=== PATIENT | male | born 1985 | race African-American/Black ===

== ENCOUNTER 2018-05-13 20:12 | Inpatient (IN) ==
--- NOTE | 2018-05-13 20:55 | EKG Report ---
Test Performed on : 05/13/2018 8:37:35 PM Test Reason : SOB Blood Pressure : / mmHG Vent. Rate : 118 BPM Atrial Rate : 118 BPM P-R Int : 158 ms QRS Dur : 086 ms QT Int : 322 ms P-R-T Axes : 063 032 097 degrees QTc Int : 451 ms Sinus tachycardia. Left atrial enlargement Nonspecific T wave abnormality Abnormal ECG When compared with ECG of 12-APR-2018 19:36, (Unconfirmed) No significant change was found Unconfirmed Result
[2018-05-13 21:06] LABS: INR 1.07; PROTIME 14.5 Seconds (11.0-16.0)
[2018-05-13 21:08] LABS: ALBUMIN 3.4 g/dL (3.5-5.0); CALCIUM 8.7 mg/dL (8.8-10.2); CREATININE 1.5 mg/dL (0.7-1.2); POTASSIUM 3.6 mmol/L (3.5-5.1); TOTAL BILIRUBIN 0.8 mg/dL (0.20-1.00); TOTAL PROTEIN 6.9 g/dL (6.3-8.3)
[2018-05-13] MEDS ORDERED: VANCOMYCIN 1 GM/NS 1 GM/250 ML IVPB IV ONE (21:23)
[2018-05-13] MEDS ORDERED: ROCEPHIN 1 GM in NS 50 ML IV ONE (21:23)
[2018-05-13 21:24] LABS: BASO# 0.07 X1000 (0.0-0.2); BASO% 0.3 % (0.0-0.8); EOS# 0.26 X1000 (0.0-0.7); HEMATOCRIT 41.5 % (42.0-52.0); HEMOGLOBIN 13.3 g/dL (14.0-18.0); IMM GRAN% 0.4 % (0.0-0.5); LYMPH# 1.74 X1000 (1.2-3.4); LYMPH% 6.5 % (20.5-51.1); MCH 25.2 PG (27-31); MCV 78.6 FL (81-99); MONO# 0.91 X1000 (0.11-0.59); MONO% 3.4 % (1.7-9.3); MPV 10.1 FL (7.4-10.4); NEUT# 23.77 X1000 (1.4-6.5); NEUT% 88.4 % (42.2-75.2); PLT 272 X1000 (130-400); RBC 5.28 XMIL (4.7-6.1); RDW 15.2 % (11.5-14.5); WBC 26.85 X1000 (4.8-10.8)
--- NOTE | 2018-05-13 21:26 | Diag Imaging Result Doc PS360 ---
EXAM: CHEST-2 VIEWS HISTORY: cough with hemoptasis TECHNIQUE: Chest two views COMPARISON: 04/12/2018 FINDINGS: There are dense bilateral infiltrates in the mid and lower lungs. Heart is mildly enlarged. No pleural effusions identified. IMPRESSION: Cardiomegaly with dense mid and lower lung infiltrates. Electronically signed by Deuce Garcia 05/13/2018 9:24 PM
--- NOTE | 2018-05-13 21:31 | PROVIDER DOCUMENTATION ---
HPI-Respiratory General - General Chief Complaint: Shortness of Breath Stated Complaint: CHEST PAIN Time Seen by Provider: 05/13/18 20:17 Source: patient Allergies/Adverse Reactions: Patient Allergies Allergy/AdvReac Type Severity Reaction Status Date / Time nitroglycerin AdvReac Unknown Verified 04/12/18 18:38 Home Medications: Home Medication List Medication Instructions Recorded Confirmed Last Taken Type Losartan [Cozaar] 100 mg PO DAILY 12/21/17 04/14/18 Unknown History Amlodipine Besylate [Norvasc] 10 mg PO DAILY #90 tab 01/07/18 04/14/18 Unknown Rx Hydralazine [Apresoline] 25 mg PO 0900,1500,2100 #90 tab 03/18/18 04/12/18 1 Day Ago Rx ~04/11/18 Clonidine [Catapres] 0.2 mg PO BID #60 tab 04/15/18 Unknown Rx Furosemide [Lasix] 40 mg PO DAILY #30 tab 04/15/18 Unknown Rx Omeprazole [Prilosec] 40 mg PO DAILY #30 capsule. 04/15/18 Unknown Rx - History of Present Illness-Resp Nature of Presenting Problem: 33 yo male pt who presents to the ED with complaint of SOB, with cough and hemoptysis. He admits to using cocain 5 hours ago via inhalation, and his symptoms started two hours later. He reports that he does use cocaine on a regular basis but denies using other illicit drugs. He reports that he has HTN, but denies any other medical history. He reports that he does have CP with inspiration and feels SOB. He reports that he was treated a few months back for swollen lower extremities with calf pain. When ask he reports that he is not a IVDA (states I hate needles), and gets HIV testing every 6 months and they have always been negative. Review of Systems - Adult - REVIEW OF SYSTEMS - ADULT Constitutional: reports: see HPI Eyes: reports: redness Ears, Nose, Mouth & Throat: reports: no symptoms reported Cardiovascular: reports: see HPI Respiratory: reports: see HPI, cough, dyspnea on exertion, hemoptysis, pleurisy , shortness of breath Gastrointestinal: reports: no symptoms reported Genitourinary: reports: no symptoms reported Musculoskeletal: reports: no symptoms reported Integumentary: reports: no symptoms reported Neurological: reports: no symptoms reported Psychiatric: reports: no symptoms reported Endocrine: reports: no symptoms reported Hematologic/Lymphatic: reports: no symptoms reported Allergic/Immunologic: reports: no symptoms reported All Other Systems: Reviewed and Negative Past History - Adult - PAST MEDICAL HISTORY-ADULT Review of Records: reports: Old Records Reviewed, Nursing Assessment Review, Medications Reviewed, Social history reviewed & non-contributory. Major Childhood Illnesses: reports: denies history Cardiovascular: reports: HTN Respiratory: reports: denies history Gastrointestinal: reports: denies history Obstetrical/Gynecological: reports: denies history Genitourinary: reports: denies history Musculoskeletal: reports: denies history Neurological: reports: denies history Psychiatric: reports: denies history Endocrine/Immune: reports: denies history Other Conditions: reports: denies history - PRIOR SURGERIES/PROCEDURES Surgical/Procedure History: reports: none - IMMUNIZATION STATUS Childhood Immunizations: See Nurse Assessment Flu Vaccine: See Nurse Assessment - FAMILY HISTORY Family History: reviewed, not pertinent - SOCIAL HISTORY Substance Use: cocaine Alcohol Use Frequency: occasionally Physical Exam-General - PHYSICAL EXAM-ADULT Initial Vital Signs Reviewed: Yes - CONSTITUTIONAL General Appearance: moderate distress, obese - EYES Eyes: PERRL/EOMI, sclera injected - HEAD, EARS, NOSE, MOUTH & THROAT HENMT: normocephalic/atraumatic, moist mucous membranes, normal ENT inspection, pharynx normal. negative: angioedema - NECK Neck: non-tender, full range of motion, supple - RESPIRATORY Respiratory: chest non-tender, respiratory distress, decreased breath sounds, accessory muscle use, crackles, increased rate - CARDIOVASCULAR Cardiovascular: no murmur, JVD, tachycardia - GASTROINTESTINAL (ABDOMEN) Abdominal Exam: normal bowel sounds, non tender, soft, no organomegaly. negative: tenderness - LYMPHATIC Lymphatic: negative: no adenopathy, cervical node tenderness - MUSCULOSKELETAL Back Exam: normal inspection, no vertebral tenderness Extremity: normal range of motion, non-tender, normal gait Peripheral Pulses: radial (R): 3+, radial (L): 3+ - NEUROLOGIC Neurologic: grossly normal, no motor/sensory deficits - PSYCHIATRIC Psych/Mental Status: oriented x 3, anxious Progress - PLAN OF CARE/RESULTS Progress/Plan/Lab Results: Vital Signs - 8 hr 05/13/18 20:14 05/13/18 23:30 Temperature 100 F H 99.7 F H Pulse Rate 119 H 113 H Respiratory Rate 24 22 Blood Pressure 115/81 221/135 O2 Sat by Pulse Oximetry 92 L 100 Laboratory Results - last 24 hr 05/13/18 05/13/18 05/13/18 20:35 20:35 20:35 WBC 26.85 H RBC 5.28 Hgb 13.3 L Hct 41.5 L MCV 78.6 L MCH 25.2 L MCHC 32.0 L RDW Std Deviation 15.2 H Plt Count 272 MPV 10.1 Immature Gran % (Auto) 0.4 Neut % (Auto) 88.4 H Lymph % (Auto) 6.5 L Schuyler % (Auto) 3.4 Eos % (Auto) 1.0 Baso % (Auto) 0.3 Immature Gran # (Auto) 0.10 H Neut # (Auto) 23.77 H Lymph # (Auto) 1.74 Schuyler # (Auto) 0.91 H Eos # (Auto) 0.26 Baso # (Auto) 0.07 Segmented Neutrophils 89 H Band Neutrophils 1 Lymphocytes 8 L Monocytes 1 Eosinophils 1 Hypochromia 2+ PT INR D-Dimer, Quantitative 1.88 H Sodium Potassium Chloride Carbon Dioxide Anion Gap BUN Creatinine Estimated GFR/1.73 m2 BUN/Creatinine Ratio Glucose Calculated Osmolality Calcium Total Bilirubin AST ALT Alkaline Phosphatase Troponin T < 0.010 Mgp-T-Vsfgldfyhgf Pept Total Protein Albumin Globulin Albumin/Globulin Ratio Plasma Lactate 05/13/18 05/13/18 05/13/18 20:35 20:35 20:35 WBC RBC Hgb Hct MCV MCH MCHC RDW Std Deviation Plt Count MPV Immature Gran % (Auto) Neut % (Auto) Lymph % (Auto) [place] % (Auto) Eos % (Auto) Baso % (Auto) Immature Gran # (Auto) Neut # (Auto) Lymph # (Auto) Schuyler # (Auto) Eos # (Auto) Baso # (Auto) Segmented Neutrophils Band Neutrophils Lymphocytes Monocytes Eosinophils Hypochromia PT 14.5 INR 1.07 D-Dimer, Quantitative Sodium 143 Potassium 3.6 Chloride 104 Carbon Dioxide 22 L Anion Gap 17 BUN 16 Creatinine 1.5 H Estimated GFR/1.73 m2 54 BUN/Creatinine Ratio 11 Glucose 99 Calculated Osmolality 286 Calcium 8.7 L Total Bilirubin 0.80 AST 28 ALT 23 Alkaline Phosphatase 92 Troponin T Ucr-T-Pxbcinscqtp Pept 6862 H Total Protein 6.9 Albumin 3.4 L Globulin 4.0 Albumin/Globulin Ratio 1.0 Plasma Lactate 05/13/18 22:00 WBC RBC Hgb Hct MCV MCH MCHC RDW Std Deviation Plt Count MPV Immature Gran % (Auto) Neut % (Auto) Lymph % (Auto) Schu[place] % (Auto) Eos % (Auto) Baso % (Auto) Immature Gran # (Auto) Neut # (Auto) Lymph # (Auto) Schuyler # (Auto) Eos # (Auto) Baso # (Auto) Segmented Neutrophils Band Neutrophils Lymphocytes Monocytes Eosinophils Hypochromia PT INR D-Dimer, Quantitative Sodium Potassium Chloride Carbon Dioxide Anion Gap BUN Creatinine Estimated GFR/1.73 m2 BUN/Creatinine Ratio Glucose Calculated Osmolality Calcium Total Bilirubin AST ALT Alkaline Phosphatase Troponin T Jhg-T-Oegjdvryflv Pept Total Protein Albumin Globulin Albumin/Globulin Ratio Plasma Lactate 1.7 Orders Category Date Time Status Admit - [facility] Routine AdmDCTranf 05/13/18 23:18 Active Activity - Strict Bedrest ORDERED Care 05/13/18 23:17 Active Isolation Precautions Setup NOW Care 05/13/18 23:26 Active Neurological Check Q2H Care 05/13/18 23:17 Active Nursing- MD Consult Request ROUTINE Care 05/13/18 21:27 Active Nursing- Obtain EKG once Care 05/13/18 20:18 Active Resuscitation Status Routine Care 05/13/18 23:17 Ordered Saline Loc DIRECTED Care 05/13/18 23:17 Completed Use Oxygen.Protocol ORDERED Care 05/13/18 21:27 Active Vital Signs Order RTQ1H Care 05/13/18 23:21 Active Z-Document. for Tele Applied ORDERED Care 05/13/18 23:22 Active Physician/Provider Consults Routine Cons 05/13/18 21:26 Ordered Physician/Provider Consults Stat Cons 05/13/18 23:23 Ordered NPO Diet 05/13/18 23:22 Active CHEST-2 VIEWS [RAD] Stat Exams 05/13/18 20:18 Completed BLOOD CULTURE [BLDCUL] Stat Lab 05/13/18 22:12 Ordered BNP [PRO B-NATRIURETIC PEPTIDE] Stat Lab 05/13/18 20:35 Completed CBC WITH DIFF [HEME] Stat Lab 05/13/18 20:35 Completed COMPREHENSIVE METABOLIC PANEL [CHEM] Stat Lab 05/13/18 20:35 Completed D-DIMER [COAG] Stat Lab 05/13/18 20:35 Completed HIV AB SCREEN [HH] Stat Lab 05/13/18 22:00 Received LACTATE, PLASMA [CHEM] Stat Lab 05/13/18 22:00 Completed PT [PROTIME WITH INR] [COAG] Stat Lab 05/13/18 20:35 Completed TROPONIN T Stat Lab 05/13/18 20:35 Completed Albuterol 2.5MG/Ipratrop 0.5MG [Duoneb (A & A)] Med 05/13/18 23:30 Active 3 ml INH RTQ4H CefTRIAXONE [Rocephin] 1 gm Med 05/13/18 21:23 Discontinued 0.9% Sodium Chloride Inj [Ns] 50 ml IV NOW Ondansetron [Zofran] Med 05/13/18 23:17 Active 4 mg IV Q4H PRN PRN Vancomycin 1 gm/Ns Med 05/13/18 21:23 Discontinued 1 gm in 250 ml IV NOW Aerosol Treatments Routine Oth 05/13/18 23:22 Active Aerosol Treatments Stat Oth 05/13/18 23:22 Active Oxygen Device Routine Oth 05/13/18 23:22 Active Telemetry [OM.EQ] Routine Oth 05/13/18 23:17 Active EKG [EKG] Stat Ther 05/13/18 20:18 Draft Transfer/Admit Order [TRANSFER] Routine Transfer 05/13/18 23:[address] Quinones the managed care coordinator who agreed to consult the patient and recommended that he be admitted to the hospitalist at in ICU or the stepdown unit. I consulted Dr. Dickey who agreed to admit the patient, he advised that he would evaluate to see if there is any open beds, otherwise the patient would be a ED hold. Result Diagrams: 05/13/18 20:35 05/13/18 20:35 - EKG 1 Time of EKG reading by physician:: 20:38 EKG Read and Signed by:: Michoacano Yanez EKG Interpretation (*Must complete 3 of following elements*): Abnormal Rate: 118 Rhythm: Sinus tach [place]: normal QRS: normal DE Interval: normal ST Wave: non-specific ST changes Prior EKG Comparison: no prior EKG Comments: LAE Departure - Departure Date of Disposition Decision: 05/13/18 Time of Disposition Decision: 21:42 DIAGNOSIS: Pneumonia, Cocaine abuse, Hemoptysis, Elevated d-dimer, Elevated brain natriuretic peptide (BNP) level, Leukocytosis, Uncontrolled hypertension Disposition: ADMITTED INPATIENT 09 Certified Medical Emergency: Emergent Condition: Critical - Critical Care Note This patient required my direct & personal management of CC.: No Attestation - Physician/ NAYE Attestation Patient care was provided by Advanced Practice Provider:: Yes Advanced Practice Provider:: Kendall Lowery Advanced Practice Provider documentation review:: The Mid-level provider documentation, treatment plan and medical decision making was reviewed by the physician who agrees with all treatment and medical decision making by the MLP. The physician spent face to face time with patient:: Yes Advanced Practice Provider documentation review:: Supervising physician onsite and consulted in the evaluation and care of this patient. The physician did have a face to face encounter with the patient.
[2018-05-13 21:47] LABS: BANDS 1 % (0-1); EOS 1 % (1-10); HYPOCHROM 2+; LYMPHS 8 % (21-51); MONO 1 % (1-9); SEGS 89 % (42-75)
[2018-05-13] MEDS ORDERED: ZOFRAN IV PRN (23:17)
[2018-05-13] MEDS ORDERED: DUONEB (A & A) INH SCH (23:30)
[2018-05-14] MEDS ORDERED: LABETALOL IV ONE (00:27)
[2018-05-14 03:49] LABS: BASO# 0.05 X1000 (0.0-0.2); BASO% 0.2 % (0.0-0.8); EOS# 0.02 X1000 (0.0-0.7); EOS% 0.1 % (0.0-10.0); HEMATOCRIT 39.4 % (42.0-52.0); HEMOGLOBIN 12.7 g/dL (14.0-18.0); IMM GRAN# 0.19 X1000 (0.0-0.04); IMM GRAN% 0.8 % (0.0-0.5); LYMPH# 1.38 X1000 (1.2-3.4); LYMPH% 5.5 % (20.5-51.1); MCH 25.2 PG (27-31); MCHC 32.2 g/dL (33-37); MCV 78.3 FL (81-99); MONO% 2.8 % (1.7-9.3); NEUT# 22.93 X1000 (1.4-6.5); NEUT% 90.6 % (42.2-75.2); PLT 270 X1000 (130-400); RBC 5.03 XMIL (4.7-6.1); WBC 25.27 X1000 (4.8-10.8)
[2018-05-14 03:58] LABS: AGAP 17; BUN 14 mg/dL (8-22); CALCIUM 8.8 mg/dL (8.8-10.2); CHLORIDE 101 mmol/L (98-107); COSMO 283; CREATININE 1.5 mg/dL (0.7-1.2); ESTIMATED GFR > 60; GLUCOSE 146 mg/dL (70-104); MAGNESIUM 1.7 mg/dL (1.5-2.7); POTASSIUM 3.7 mmol/L (3.5-5.1); SODIUM 140 mmol/L (136-145); TCO2 22 mmol/L (25-35)
[2018-05-14] MEDS ORDERED: DUONEB (A & A) INH PRN (04:06)
[2018-05-14 04:10] LABS: BANDS 4 % (0-1); LYMPHS 4 % (21-51); MONO 2 % (1-9); SEGS 90 % (42-75)
[2018-05-14 04:11] LABS: LARGE PLATELETS 1+
[2018-05-14] MEDS ORDERED: VANCOMYCIN IV PER PHARMACY MISC SCH (04:15)
[2018-05-14] MEDS ORDERED: LASIX IV SCH (04:15)
[2018-05-14] MEDS ORDERED: LASIX IV ONE (04:18)
[2018-05-14] MEDS ORDERED: ZOFRAN IV PRN (04:46)
[2018-05-14] MEDS: MAXIPIME 1 GM in NS 50 ML IV SCH ×2 (04:46→15:33)
[2018-05-14] MEDS: TYLENOL PO PRN ×2 (04:58→20:31)
[2018-05-14] MEDS: NORVASC PO SCH (04:59)
[2018-05-14] MEDS: APRESOLINE PO SCH ×3 (04:59→20:05)
[2018-05-14] MEDS: CATAPRES PO SCH ×2 (04:59→20:05)
[2018-05-14] MEDS ORDERED: VANCOMYCIN 1 GM/NS 1 GM/250 ML IVPB IV ONE (05:00)
[2018-05-14] MEDS: PRILOSEC PO SCH ×2 (05:00→06:04)
--- NOTE | 2018-05-14 08:07 | Diag Imaging Result Doc PS360 ---
CT THORAX W/O CONTRAST - 05/14/2018 INDICATION: ACUNA. Hx cocaine use COMPARISON: Chest CT 12/20/2017. Chest x-rays from 05/13/2018 and 04/12/2018 FINDINGS: There is mild cardiomegaly. No pericardial effusion. No mass or adenopathy. Upper abdominal images are unremarkable. There are extensive groundglass interstitial infiltrates in the perihilar lungs bilaterally. No pneumothorax or pleural effusion. There is some intralobular septal thickening throughout the lungs consistent with interstitial edema. IMPRESSION: Cardiomyopathy. Interstitial pulmonary edema. This exam was performed using automated exposure control, adjustment of mA or kV according to patient size, and/or use of iterative reconstruction technique Electronically signed by Gianni Sherwood 05/14/2018 8:05 AM
[2018-05-14] MEDS: COZAAR PO SCH (08:18)
[2018-05-14] MEDS: HEPARIN SUBQ SCH ×2 (08:20→20:05)
[2018-05-14 08:30] LABS: URINE SOURCE CLEAN CATCH
[2018-05-14 08:35] LABS: BILIRUBIN URINE NEGATIVE (NEGATIVE); BLOOD URINE NEGATIVE (NEGATIVE); COLOR STRAW; GLUCOSE URINE NEGATIVE (NEGATIVE); KETONE URINE NEGATIVE (NEGATIVE); LEUKOCYTES URINE NEGATIVE (NEGATIVE); NITRITE URINE NEGATIVE (NEGATIVE); PROTEIN URINE NEGATIVE (NEGATIVE); TURBIDITY URINE CLEAR (CLEAR); UROBILINOGEN URINE NORMAL (NORMAL)
[2018-05-14 08:36] LABS: UR EPITHELIAL CELLS <10 /HPF (<10); URINE BACTERIA NEGATIVE /HPF; URINE RBC <10 /HPF (<10); URINE WBC <10 /HPF (<10)
--- NOTE | 2018-05-14 08:39 | HISTORY AND PHYSICAL ---
The patient does not have a primary care provider at this time. CHIEF COMPLAINT: Shortness of breath. HISTORY OF PRESENT ILLNESS: Mr. Sotomayor is a 33-year-old male with a past medical history most notable for hypertension, congestive heart failure, medical noncompliance as well as polysubstance abuse. He was just recently admitted and discharged from our facility on April 15, 2018. The patient states that over the last couple of weeks, he has had worsening shortness of breath. He has had worsening dyspnea with exertion as well as orthopnea. He has had increased bilateral lower extremity edema. The patient states that since being discharged, he has been trying to obtain a primary care physician but at this time does not have one. He states he has been taking all his medications as prescribed up until yesterday when he states that he only took 1 clonidine tablet and other than this did not take any of his high blood pressure medications. He is reporting a headache at this time though he denies any chest pain. He is reporting his shortness of breath as previously mentioned and has reported that he has had a productive cough with brown sputum as well as some blood. He states this started yesterday. He denies any abdominal pain, nausea, vomiting or diarrhea. He reports his last bowel movement was tonight. He denies any hematochezia or melena. He denies any dysuria. Upon evaluation in the ER at [facility], he did report shortness of breath, cough and hemoptysis. He did according to the ER physician note admit to using cocaine 5 hours via inhalation with his symptoms starting 2 hours after that. According to their ER note, he did report that he does use cocaine on a regular basis but denies any other illicit drug use. He denies any IV drug use. Upon my examination, the patient was sitting in the inpatient bed. Although he does not appear to be in any distress, he did appear to be slightly tachypneic and dyspneic upon examination. He did have JVD noted with a positive hepatojugular reflux. He does have diminished lung sounds bilaterally and does have some slight crackles in the left lung base. He also has slight expiratory wheeze noted. He does have 3+ pitting edema noted in bilateral lower extremities. White blood cell count was 26,850. ProBNP was 6,862. Chest x-ray performed in the ER at [facility] did show cardiomegaly with dense mid and lower lung infiltrates. Given these findings, the patient was transferred to [facility] for inpatient admission for treatment of CHF exacerbation and bilateral pneumonia. REVIEW OF SYSTEMS: A 14 point review of systems was conducted with the patient and all were negative except for pertinent positives as mentioned in the above HPI. PAST MEDICAL HISTORY: 1. Hypertension. 2. Chronic kidney disease. 3. Congestive heart failure. 4. History of medical noncompliance. SURGERIES: The patient has no known surgical history. SOCIAL HISTORY: The patient denies any alcohol or tobacco use although does report he uses marijuana. According to the ER physician note, the patient did admittedly report to inhaling cocaine and that he did admit to using cocaine on a regular basis although upon my questioning, the patient denies this. He has previously tested positive for cocaine in the past. FAMILY HISTORY: Positive for his mother just recently having a valve replacement at [facility]. She does have congestive heart failure and diabetes. His father secondary to an unknown medical complication. ALLERGIES: The patient has allergies to nitroglycerin. HOME MEDICATIONS: 1. Norvasc 10 mg p.o. daily. 2. Clonidine 0.2 mg p.o. b.i.d. 3. Lasix 40 mg p.o. daily. 4. Hydralazine 25 mg p.o. 3 times a day. 5. Cozaar 100 mg p.o. daily. 6. Omeprazole 40 mg p.o. daily. DIAGNOSTIC DATA/LABORATORY RESULTS: White blood cell count is 25,850, hemoglobin 13.3, hematocrit 41.5, platelet count is 272,000. PT 14.5, INR 1.05. D-dimer 1.88. Sodium 143, potassium 3.6, chloride 104, serum bicarb is 22. BUN 16, creatinine 1.5 with a GFR of 54. Glucose 99, calcium 8.7. Liver function tests within normal limits. CK is 184. Troponin is less than 0.01. ProBNP is 6,852. Plasma lactate is 1.7. EKG showed sinus tachycardia at a rate of 118 with a left atrial enlargement. Chest x-ray performed in the ER at [facility] show cardiomegaly with dense mid and lower lung infiltrates. PHYSICAL EXAMINATION: VITAL SIGNS: Temperature is 98.5 degrees, heart rate 94, respirations 24, blood pressure is 183/118. Oxygen saturation is 98% nasal cannula at 2 L. GENERAL: Mr. Sotomayor is a pleasant 33-year-old male who was resting in the inpatient bed who was in no acute distress. He was awake, alert and able to answer questions appropriately. HEENT: Head is atraumatic, normocephalic. Pupils are equal, round and reactive to light. Oral mucosa is slightly dry. Oropharynx is clear. NECK: Supple. Trachea midline. Patient does have JVD noted upon examination with a positive hepatojugular reflux. CARDIOVASCULAR: The patient has S1, S2. No murmurs, gallops, rubs appreciated. Regular rate and rhythm. PULMONARY: The patient has symmetrical chest expansion bilaterally but he does have a slight expiratory wheeze noted and does have diminished lung sounds in bilateral bases with some very slight crackles in the left lung base. ABDOMEN: Soft. Does not appear to be overly distended though the patient does have a protuberant abdomen noted. It was nontender upon palpation. Bowel sounds were present in all 4 quadrants and normoactive. EXTREMITIES: No cyanosis noted. The patient does have 2-3+ pitting edema noted in bilateral lower extremities from approximately the knee down. Pulse, motor and sensory are intact. Pedal pulses and radial pulses are 2+ bilaterally. INTEGUMENTARY: The patient's skin is pink, warm and dry. NEUROLOGICAL: The patient is alert and oriented x3. There does not appear to be any focal neurological deficits noted. ASSESSMENT AND PLAN: 1. CHF exacerbation. For this, we will go ahead and give the patient an initial 60 mg IV dose of Lasix. We will continue with Lasix 40 mg IV q.12 hours. We will closely monitor his intake and output. We will do daily weights. Patient's most recent echocardiogram on April 13, 2018 did show suggestion of severe left ventricular hypertrophy with an estimated ejection fraction of 60%. We will do a series of cardiac enzymes. We have placed a consult with Dr. Adams with Cardiology and we will await his evaluation and further recommendations for management. 2. Bilateral pneumonia. For treatment of this, we have placed the patient with antibiotic coverage of vancomycin and cefepime. Blood cultures and sputum culture have been ordered. We will continue with respiratory toilet with incentive spirometry, scheduled DuoNeb treatments. We will continue monitoring respiratory status closely. 3. Uncontrolled hypertension. Patient, according to his previous medical records, looks as though he does have a history of medical noncompliance and uncontrolled hypertension. He did report that yesterday he did not take any of his blood pressure medications except for 1 clonidine tablet. This is likely the cause of his uncontrolled hypertension. We will go ahead and order all of his regularly prescribed blood pressure medications, all of which 1 dose will be given now except for his Cozaar which will be given later on in the day. We will monitor his response to this and follow closely. 4. Chronic kidney disease. The patient does have a baseline creatinine of 1.2 to 1.4. Patient's creatinine is slightly increased at this time. We will continue to monitor this closely. We will avoid nephrotoxic medications and renally dose medicines as necessary. 5. DVT prophylaxis will be provided with heparin 5,000 units subcu q.12 hours. The patient has been placed on the medical floor with telemetry. He will have vital signs q.4 hours with strict intake and output, daily weights. He will be on a heart healthy diet. We are awaiting further laboratory studies of urinalysis, urine drug screen, HIV screen. We are also awaiting results of a CT thorax without contrast. Further orders and recommendations pending hospital course, diagnostic studies and physician evaluation. Dictated by JORDEN Matute for Paxton Dickey MD cc: Paxton Dickey MD
[2018-05-14] MEDS ORDERED: NORVASC PO SCH (09:00)
[2018-05-14] MEDS ORDERED: CATAPRES PO SCH (09:00)
[2018-05-14] MEDS ORDERED: APRESOLINE PO SCH (09:00)
[2018-05-14 09:26] LABS: ALLEN TEST YES; BE 3.3 mmoll (-3.0-3.0); BLOOD TYPE ARTERIAL; HCO3-(ACT) 27.4 mmoll (20.0-26.0); METHB 1.1 % (0.0-1.5); O2(CT) 17.4 mL/dL (15.0-23.0); O2HB 93.8 % (95.0-99.0); PCO2(98.6) 41 mmHg (35-45); PO2(98.6) 100 mmHg (60-100); SAMPLE BLOOD; SAO2 99.2 % (95.0-100.0); THB 13.1 g/dL (11.5-17.4); pH(98.6) 7.44 (7.35-7.45)
[2018-05-14 09:27] LABS: MODALITY CANNULA
[2018-05-14 09:41] LABS: UR AMPHETAMINES QUAL NONE DETECTED (NONE DETECT); UR BARBITUATES QUAL NONE DETECTED (NONE DETECT); UR BENZODIAZEPIN QUAL NONE DETECTED (NONE DETECT); UR CANNABINOIDS QUAL NONE DETECTED (NONE DETECT); UR COCAINE QUAL PRESUMPTIVE POSITIVE (NONE DETECT); UR METHADONE QUAL NONE DETECTED (NONE DETECT); UR OPIATES QUAL NONE DETECTED (NONE DETECT); UR OXYCODONE QUAL NONE DETECTED (NONE DETECT); UR PCP QUAL NONE DETECTED (NONE DETECT)
--- NOTE | 2018-05-14 11:10 | EKG Report ---
Test Performed on : 05/14/2018 11:05:08 AM Test Reason : dyspnea Blood Pressure : / mmHG Vent. Rate : 089 BPM Atrial Rate : 089 BPM P-R Int : 168 ms QRS Dur : 094 ms QT Int : 412 ms P-R-T Axes : 028 034 099 degrees QTc Int : 501 ms Normal sinus rhythm. Possible Left atrial enlargement Nonspecific T wave abnormality Prolonged QT Abnormal ECG When compared with ECG of 13-MAY-2018 20:37, (Unconfirmed) No significant change was found Confirmed by Mari DUNCAN, Tim Faith ([id number]) on 05/14/2018 1:57:38 PM
--- NOTE | 2018-05-14 11:40 | CARDIOLOGY CONSULTATION ---
DATE: 05/14/2018 CHIEF COMPLAINT: Shortness of breath. HISTORY OF PRESENT ILLNESS: Mr. Sotomayor is a 33-year-old male with a history of hypertension, diastolic failure, hypertrophic cardiomyopathy, noncompliance and polysubstance abuse. He presented for evaluation yesterday for shortness of breath that has been going on for the last couple of days. He does not think it was getting a whole lot worse, but it was not improving. He did have some orthopnea. He denies any overt chest pain. He has not had any recent cough. The patient is somewhat disconnected from the examination and history. PAST MEDICAL HISTORY: 1. Significant for hypertension with poor compliance. 2. He has a hypertensive cardiomyopathy. His last echocardiogram was at the end of March showing an ejection fraction of 60%, but severe LVH with a posterior wall thickness of 1.7 and a septal thickness of 2 cm. He had severe left atrial enlargement with a volume index of 42. 3. Morbid obesity. 4. Chronic kidney disease. SOCIAL HISTORY: Patient denies any alcohol or tobacco. He does use marijuana. He does use cocaine as well. FAMILY HISTORY: Mother had a valve replacement at [facility]. She also had some history of heart failure and diabetes. Father of unknown causes. REVIEW OF SYSTEMS: A 10-system review of systems is negative except for those things mentioned in history of present illness. OBJECTIVE: Vital signs: He is afebrile, heart rate 87, his most recent blood pressure is 166/95. When he presented, his initial blood pressure appeared to be 221/135. General: He is in no acute distress. HEENT: Oropharynx is moist. Normal dentition. Eye examination shows pink conjunctivae, white sclerae. Neck: Examination shows no obvious thyromegaly or thyroid tenderness. Cardiovascular: He sounds to be in a regular rate and rhythm. I do not hear any obvious murmurs. He has no S3 present. He has 1+ bilateral lower extremity edema. Chest: Mild basilar rales. No increased work of breathing. Abdomen: Soft, nontender, obese. No increased work of breathing. Skin: Warm and dry throughout without any rashes. Neurological: He is moving all extremities well. He has no lateralizing deficits. Psychiatric: Alert and oriented, pleasant. Normal mood and affect. PERTINENT DATA: His chest CT showed cardiomegaly with interstitial pulmonary edema. His EKG initially on the at 2037 shows sinus rhythm, suggestion of LVH-type changes with secondary ST- T changes. His subsequent EKG at 11:05 this morning again shows sinus rhythm, suggestion of LVH, left atrial enlargement and secondary ST-T changes. His white count is 25, hematocrit 39, his platelet count is 270,000. He does have a bandemia. His sodium is 140, potassium 3.7, his BUN is 14 with a creatinine of 1.5. His magnesium level is 1.7. His cardiac enzymes are normal. His proBNP is 6862. His cocaine screen was positive. ASSESSMENT: Mr. Sotomayor is a 33-year-old gentleman with severe hypertensive heart disease who presents with what appears to be diastolic failure. PLAN: The patient has diuresed significantly on his current medications. I will continue on this regimen for now. He is currently on amlodipine 10 mg daily, clonidine 0.2 b.i.d. and hydralazine on a t.i.d. basis and losartan at 100 mg daily. Patient's compliance is certainly an issue. We will continue on the current regimen for the time being. cc: Neto Caal MD
--- NOTE | 2018-05-14 14:19 | PROGRESS NOTE ---
DATE: 05/14/2018 INTERVAL HISTORY: Mr. Sotomayor was admitted for acute heart failure with preserved ejection fraction exacerbation. Bilateral acute pulmonary edema, acute hypoxic respiratory failure. He is being treated with intravenous diuresis and intravenous Lasix. SUBJECTIVE: He is feeling okay. He states that someone had mixed cocaine with his marijuana, which he smoked and after which he started having palpitation and shortness of breath. I counseled him about quitting all forms of recreational substances and answered a lot of this questions. Currently, he is denying any chest pain or palpitation. His shortness of breath is better. OBSTETRICAL HISTORY: Vital Signs: Temperature 97.9, pulse 87, blood pressure 160/190, saturating 100% on 2 L nasal cannula. On physical examination, he appears morbidly obese. Oral cavity is moist. Air entry bilaterally decreased in infrascapular region with inspiratory crackles. No wheeze or rhonchi. S1, S2 normal. Tachycardic. No rub or gallop. Abdomen is soft, nontender. Mild lower extremity edema. Input and output -3 L yesterday. LABORATORY DATA: Persistence of leukocytosis, microcytosis. Acceptable range of hemoglobin, hematocrit, and platelet count. Acute kidney injury which is improving and urine toxicology positive for cocaine. EKG had normal sinus rhythm with left atrial abnormality and T-wave inversion in V6 which was unchanged from previous EKG. ASSESSMENT AND PLAN: 1. Acute exacerbation of heart failure with preserved ejection fraction likely because of medication noncompliance with continued use of recreational substances. Continue intravenous Lasix. 2. Suspected bilateral pneumonia. On review of the CT scan, it does appear ground-glass opacity bilaterally with occasional areas of patchiness. He complains of hemoptysis on admission which could be just pulmonary edema. I will add procalcitonin to his lab and follow. His procalcitonin levels are low. My plan will be to discontinue antibiotics. Follow up CBC. His leukocytosis could be a response to his heart failure exacerbation. 3. Hypertensive emergency with uncontrolled hypertension. Restart his home medication including clonidine, hydralazine, losartan, amlodipine. He is not listed to be taking any beta breanna. I will defer management to Cardiology who has already been consulted. 4. Chronic kidney disease, stage 2 and stage 3A. Follow up with BMP. Avoid nephrotoxic medications. 5. Deep venous thrombosis prophylaxis. Heparin subcutaneously. DISPOSITION: The patient remains in [facility] for close monitoring of his cardiorespiratory status. Continue heart healthy diet. Follow up with HIV screen. The patient did not want me to call his family and tell them about his medical course. He states he would do it by himself. Plan of care was discussed with him. All of his questions have been answered. cc: Devin Edmonds MD MTDD
[2018-05-14] MEDS: LASIX IV SCH (15:26)
[2018-05-14] MEDS: LABETALOL IV PRN (15:43)
[2018-05-14 17:11] LABS: HIV ANTIBODY SCREEN SEE COMMENTS
[2018-05-14] MEDS: VANCOMYCIN 2,000 MG in NS 500 ML IV SCH (17:50)
--- NOTE | 2018-05-15 00:36 | CONSULTATION ---
DATE OF CONSULTATION: 05/14/2018 REQUESTING PROVIDER: JORDEN Watt. REASON FOR CONSULTATION: Hemoptysis, bilateral pneumonia. HISTORY OF PRESENT ILLNESS: This is a 43-year-old male with medical history of hypertension, hypertensive cardiomyopathy, chronic kidney disease, migraine, morbid obesity, marijuana and cocaine abuse and medical noncompliance. He has frequent ER visits since last year and was last admitted on 04/13/2018 to 04/15/2018 with malignant hypertension and acute kidney injury on chronic kidney disease. He presented to the ER last night with chest pain, worsening shortness of breath and hemoptysis 2 hours after cocaine inhalation. In the ER, lab revealed white blood cell 25.27, D-dimer 1.88, creatinine 1.5, and proBNP 6862. Chest x-ray revealed mild cardiomegaly with dense bilateral infiltrates in the mid and lower lung zones. He has been admitted to the [facility] for further evaluation and management. At the time of my examination, he reports shortness of breath, pedal edema and mild pleurisy, but denies fever, chills, headache, dizziness, cough, wheezing, nausea, vomiting, diarrhea, constipation or palpitation. He reports he has no episode of hemoptysis in the hospital. PAST MEDICAL HISTORY: 1. Hypertension, poorly controlled. 2. Hypertensive cardiomyopathy. Last echocardiogram on 04/13/2019 shows severe left atrial enlargement and severe left ventricular hypertrophy with normal left ventricular systolic function and an estimated ejection fraction of 60%. 3. Chronic kidney disease. 4. Migraine when he was a child. 5. Morbid obesity with current BMI of 45.36. 6. Marijuana and cocaine abuse. 7. Medical noncompliance. PAST SURGICAL HISTORY: None. SOCIAL HISTORY: Patient used to smoke a pack per day, but quit 4 months ago. He uses marijuana every day for a long time. He also uses cocaine. He drinks occasionally. FAMILY HISTORY: Positive for congestive heart failure and diabetes. ALLERGIES: Nitroglycerin. REVIEW OF SYSTEMS: A 10 point review of systems was conducted and the pertinent is listed within the HPI, otherwise noncontributory. PHYSICAL EXAMINATION: Vital Signs: Temperature 97.9, blood pressure 166/95, pulse 87, respiratory rate 18, oxygen saturation 100% on nasal cannula at 2 L. General: Morbidly obese, resting comfortably in the bed without acute distress noted. HEENT: Atraumatic. Trachea midline. Mucosa pink and moist. Respiratory: Even and unlabored. Diminished breathing sounds bibasilarly. Otherwise clear to auscultation. Cardiovascular: Regular rate and rhythm without murmur noted. Gastrointestinal: Normoactive bowel sounds in all 4 quadrants. Soft, nontender and obese. Extremities: Pedal edema of 1+. No cyanosis. No clubbing. Dorsalis pedal pulse 2+ bilaterally. Neurologic: Alert, oriented x3. Cooperative. Speech fluent. LAB DATA: White blood cell 25.27, hemoglobin 12.7, hematocrit 39.4, platelet 270,000. Sodium 148, potassium 3.7, chloride 101, carbon dioxide 22, BUN 14, creatinine 1.5, glucose 146. ABG, pH 7.44, pCO2 41, PO2 100, HC03 27.4, base excess 3.3, and oxyhemoglobin 93.8. IMAGING DATA: Chest CT shows cardiomegaly and interstitial pulmonary edema. ASSESSMENT AND PLAN: This is a 33-year-old male with medical history of uncontrolled hypertension, hypertensive cardiomyopathy, chronic kidney disease, migraine, morbid obesity, marijuana and cocaine abuse and medical noncompliance. He has been admitted to the [facility] with acute hypoxemic respiratory failure, diastolic heart failure exacerbation with pulmonary edema and pedal edema and suspected bilateral pneumonia. 1. Acute hypoxemic respiratory failure secondary to pulmonary edema and substance abuse. Continue supplemented oxygen and bronchodilators. Follow up ABG and chest x- ray. 2. Diastolic heart failure exacerbation, likely secondary to uncontrolled hypertension and substance abuse. Agree to continue diuretics. Dr. Caal, the flitch hanger , is on hold. 3. Pulmonary edema, secondary to diastolic heart failure exacerbation and cocaine inhalation. Agree to continue diuretics. 4. Leukocytosis, likely secondary to diastolic heart failure exacerbation or suspected pneumonia. Blood culture, sputum culture and procalcitonin have been ordered but the final results are pending. Agree to continue antibiotics and follow up CBC. 5. Continue gastrointestinal and deep venous thrombosis prophylaxis. Thank you for the courtesy of this consult. Dictated by JORDEN Mota for Edie Quinones MD cc: JORDEN Mota MD [facility]
[2018-05-15] MEDS: MAXIPIME 1 GM in NS 50 ML IV SCH ×2 (03:43→15:48)
[2018-05-15] MEDS: LASIX IV SCH ×2 (03:43→15:48)
[2018-05-15] MEDS: LABETALOL IV PRN ×2 (03:44)
[2018-05-15 04:12] LABS: ALLEN TEST YES; BE 5.4 mmoll (-3.0-3.0); BLOOD TYPE ARTERIAL; HCO3-(ACT) 29.1 mmoll (20.0-26.0); METHB 0.9 % (0.0-1.5); MODALITY CANNULA; O2(CT) 16.5 mL/dL (15.0-23.0); O2HB 95.4 % (95.0-99.0); PCO2(98.6) 46 mmHg (35-45); PO2(98.6) 101 mmHg (60-100); SAMPLE BLOOD; SAO2 99.1 % (95.0-100.0); THB 12.2 g/dL (11.5-17.4); pH(98.6) 7.43 (7.35-7.45)
[2018-05-15] MEDS: VANCOMYCIN 2,000 MG in NS 500 ML IV SCH (04:20)
[2018-05-15 05:09] LABS: BASO# 0.05 X1000 (0.0-0.2); BASO% 0.4 % (0.0-0.8); EOS# 0.66 X1000 (0.0-0.7); EOS% 4.8 % (0.0-10.0); HEMATOCRIT 40.9 % (42.0-52.0); HEMOGLOBIN 12.7 g/dL (14.0-18.0); IMM GRAN# 0.02 X1000 (0.0-0.04); IMM GRAN% 0.1 % (0.0-0.5); LYMPH# 1.61 X1000 (1.2-3.4); LYMPH% 11.6 % (20.5-51.1); MCH 25.1 PG (27-31); MCHC 31.1 g/dL (33-37); MCV 80.8 FL (81-99); MONO# 0.55 X1000 (0.11-0.59); MPV 10.1 FL (7.4-10.4); NEUT# 10.97 X1000 (1.4-6.5); NEUT% 79.1 % (42.2-75.2); PLT 239 X1000 (130-400); RBC 5.06 XMIL (4.7-6.1); RDW 15.1 % (11.5-14.5); WBC 13.86 X1000 (4.8-10.8)
[2018-05-15 05:49] LABS: AGAP 11; BUN 16 mg/dL (8-22); CALCIUM 8.6 mg/dL (8.8-10.2); CHLORIDE 102 mmol/L (98-107); COSMO 283; CREATININE 1.4 mg/dL (0.7-1.2); ESTIMATED GFR > 60; GLUCOSE 110 mg/dL (70-104); MAGNESIUM 1.8 mg/dL (1.5-2.7); POTASSIUM 3.8 mmol/L (3.5-5.1); SODIUM 141 mmol/L (136-145); TCO2 28 mmol/L (25-35)
[2018-05-15] MEDS: PRILOSEC PO SCH (06:28)
--- NOTE | 2018-05-15 07:49 | EKG Report ---
Test Performed on : 05/15/2018 07:07:03 AM Test Reason : CHF Blood Pressure : / mmHG Vent. Rate : 083 BPM Atrial Rate : 083 BPM P-R Int : 170 ms QRS Dur : 096 ms QT Int : 396 ms P-R-T Axes : 031 032 077 degrees QTc Int : 465 ms Normal sinus rhythm. Possible Left atrial enlargement Nonspecific T wave abnormality Prolonged QT Abnormal ECG When compared with ECG of 14-MAY-2018 11:05, No significant change was found Confirmed by Mari DUNCAN, Tim Faith ([id number]) on 05/15/2018 4:51:18 PM
--- NOTE | 2018-05-15 08:16 | Diag Imaging Result Doc PS360 ---
CHEST-1 VIEW - 05/15/2018 INDICATION: SOB COMPARISON: 05/13/2018 FINDINGS: There has been significant improvement in the dense bilateral alveolar infiltrates/pulmonary edema. Stable cardiomegaly. No pleural effusions. IMPRESSION: Significant improvement in the pulmonary edema. Electronically signed by Gianni Sherwood 05/15/2018 8:14 AM
[2018-05-15] MEDS: CATAPRES PO SCH ×2 (08:49→20:40)
[2018-05-15] MEDS: COZAAR PO SCH (08:49)
[2018-05-15] MEDS: NORVASC PO SCH (08:50)
[2018-05-15] MEDS: HEPARIN SUBQ SCH ×2 (08:50→20:40)
[2018-05-15] MEDS: APRESOLINE PO SCH ×3 (08:50→20:40)
[2018-05-15] MEDS: ZYVOX 600 MG/D5W 600 MG/300 ML IVPB IV SCH ×2 (10:30→20:47)
--- NOTE | 2018-05-15 11:54 | PROGRESS NOTE ---
DATE: 05/15/2018 SUBJECTIVE: This patient is still complaining of shortness of breath. His x-ray looks better compared with yesterday. We will continue with the same management for now. I have stopped the vancomycin, and I put him on linezolid due to his kidney injury. Will avoid nephrotoxic medication as much as we can. OBJECTIVE: Vital Signs: Temperature 98.1 degrees, pulse 85, respiratory rate 24, blood pressure 157/97, oxygen saturation 97% on 2 L of nasal cannula. HEENT: Head normocephalic. No trauma. PERRLA. Neck: Supple. No JVD. No masses. Central trachea. Chest: Decreased breath sounds globally with some crepitus at the bases and mild rales. Abdomen: Soft, nontender, nondistended. No hepatosplenomegaly. Extremities: There is 1+ to 2+ lower extremity edema. No clubbing. No cyanosis. Neurological: The patient is alert and oriented x3. No focal deficits. LABORATORY DATA: WBC 13.8, hemoglobin 12.7, hematocrit 40.9, platelets 239,000. Sodium 141, potassium 3.8, chloride 102, bicarbonate 28, BUN 16, creatinine 1.4, glucose 110, calcium 8.6. Magnesium 1.8. ASSESSMENT AND PLAN: 1. Diastolic heart failure. Continue with diuresis. He seems to be doing a little bit better, but he is still complaining of shortness of breath. Cardiology Department on board. Continue with the same management. 2. Hypercapnic respiratory failure. This patient is still on oxygen supplementation. Continue with antibiotics. Probably also, the pneumonia is contributing to this problem. Pulmonary Department on board. Will continue to monitor. 3. Bilateral pneumonia. This patient's CT scan showed ground-glass opacity bilaterally. Continue with antibiotics, except that I will stop the vancomycin, and I will put him on Zyvox due to his kidney dysfunction. 4. Hypertensive emergency, controlled. Continue with the same management. Cardiology Department on board. He is not on beta blockers. 5. Chronic kidney disease. His baseline creatinine is around 1.3, today is 1.4. Will continue with the same management. We will avoid as much as we can, nephrotoxic medications. 6. Deep vein thrombosis prophylaxis with heparin subcutaneously. 7. Leukocytosis, getting better. Continue with the same management. 8. Drug abuse. This patient has been doing cocaine. The last time was last week. This patient has been highly advised against cocaine abuse. I will continue with daily cessation education. 9. Tobacco abuse. This patient has been advised against tobacco abuse. I will continue with daily cessation education as well. cc: Lance Hanna MD
--- NOTE | 2018-05-15 13:42 | ECHO REPORT ---
ORDER DATE: 05/14/2018 INTERPRETING PHYSICIAN: Dr. Nabor Lara ECHOCARDIOGRAPHIC MEASUREMENTS: Interventricular septum: 1.8 cm. Left ventricular posterior wall: 1.8 cm. Diastolic diameter: 4.6 cm. Left ventricular systolic diameter: 3.3 cm. Aorta: 3.1 cm. SUMMARY OF THE 2-DIMENSIONAL IMAGING: Aortic valve leaflets are trileaflet. Pulmonic valve was normal. Tricuspid valve was normal. Mitral valve was normal. Normal left ventricular cavity size. Severe left ventricular hypertrophy. Estimated ejection fraction of 60%. There is mild mitral regurgitation. Mild tricuspid regurgitation. Peak velocity across the tricuspid valve was 2.8 m/sec. Pulmonary artery systolic pressure of 41 mmHg. By Doppler studies, there is no aortic stenosis or regurgitation. There is trivial posterior echo-free space which was granular, more suggestive of pericardial fat pad. Cannot rule out trivial effusion. This was noted anteriorly as well. There is no tamponade. cc: MD Priscila Nance PA
[2018-05-16] MEDS: LASIX IV SCH ×2 (04:50→15:42)
[2018-05-16] MEDS: MAXIPIME 1 GM in NS 50 ML IV SCH ×2 (04:50→15:43)
[2018-05-16 05:42] LABS: BASO# 0.04 X1000 (0.0-0.2); BASO% 0.4 % (0.0-0.8); EOS# 0.57 X1000 (0.0-0.7); EOS% 5.2 % (0.0-10.0); HEMATOCRIT 42.4 % (42.0-52.0); HEMOGLOBIN 13.1 g/dL (14.0-18.0); IMM GRAN# 0.02 X1000 (0.0-0.04); IMM GRAN% 0.2 % (0.0-0.5); LYMPH# 1.69 X1000 (1.2-3.4); LYMPH% 15.5 % (20.5-51.1); MCH 24.6 PG (27-31); MCHC 30.9 g/dL (33-37); MCV 79.7 FL (81-99); MONO# 0.51 X1000 (0.11-0.59); MONO% 4.7 % (1.7-9.3); MPV 10.3 FL (7.4-10.4); PLT 269 X1000 (130-400); RBC 5.32 XMIL (4.7-6.1); RDW 14.9 % (11.5-14.5); WBC 10.93 X1000 (4.8-10.8)
[2018-05-16] MEDS: PRILOSEC PO SCH (06:20)
[2018-05-16 06:26] LABS: AGAP 12; BUN 16 mg/dL (8-22); CALCIUM 8.6 mg/dL (8.8-10.2); CHLORIDE 99 mmol/L (98-107); COSMO 283; CREATININE 1.4 mg/dL (0.7-1.2); ESTIMATED GFR > 60; GLUCOSE 101 mg/dL (70-104); MAGNESIUM 1.9 mg/dL (1.5-2.7); POTASSIUM 3.6 mmol/L (3.5-5.1); SODIUM 141 mmol/L (136-145); TCO2 30 mmol/L (25-35)
[2018-05-16] MEDS: COZAAR PO SCH (08:56)
[2018-05-16] MEDS: ZYVOX 600 MG/D5W 600 MG/300 ML IVPB IV SCH ×2 (08:56→21:29)
[2018-05-16] MEDS: HEPARIN SUBQ SCH ×2 (08:56→21:28)
[2018-05-16] MEDS: CATAPRES PO SCH ×2 (08:57→21:30)
[2018-05-16] MEDS: APRESOLINE PO SCH ×3 (08:57→21:29)
[2018-05-16] MEDS: NORVASC PO SCH (08:57)
--- NOTE | 2018-05-16 10:25 | PROGRESS NOTE ---
DATE: 05/16/2018 SUBJECTIVE: This patient states that he is feeling better, he is still complaining of shortness of breath with minimal physical activity. WBC trending down, today is 10.9. Kidney function about the same compared with yesterday. OBJECTIVE: Temperature 97.3 degrees, pulse 87, respiratory rate 16, blood pressure 182/112 and oxygen saturation 98 percent on room air.HEENT: Head normocephalic. No trauma. PERRLA. Neck: Supple. No JVD. No masses. Central trachea. Chest: Decreased breath sounds globally with some crepitus at the bases. Abdomen: Soft, nontender, nondistended. No hepatosplenomegaly. Extremities: Trace to 1+ lower extremity edema. No clubbing. No cyanosis. Neurological: The patient is alert and oriented x3. No focal deficits. LABORATORY: WBC 10.9, hemoglobin 13.1, hematocrit 42.4, and platelets 269,000. Sodium 141, potassium 3.6, chloride 99, bicarbonate 30, BUN 16 and creatinine 1.4. Glucose 101. calcium 8.6. Magnesium 1.9. ASSESSMENT AND PLAN: 1. Diastolic heart failure. We will continue with diuresis. He seems to be doing better, but he is still complaining of shortness of breath mostly with mild physical activity. Cardiology Department on board. For now, we will continue with same management. 2. Hypercapnic respiratory failure, continue with oxygen supplementation. I think he is doing better. Also, he has some pneumonia that can be contributing to this problem. Pulmonary Department on board. We will continue to monitor. 3. Bilateral pneumonia. This patient's CT scan showed ground-glass opacity bilaterally. We will continue with antibiotics. 4. Hypertensive emergency. He has been better controlled but he has been having some episodes of elevated blood pressure. He started beta blockers, and I will add hydralazine to his medications to see how he does. 5. CKD. His baseline creatinine is around 1.3. Today, it is 1.4. I will continue with the same management and we will avoid nephrotoxic medications as much as we can. 6. Deep vein thrombosis prophylaxis with heparin subcutaneously. 7. Leukocytosis getting much better almost normal. 8. Drug abuse. This patient has been doing cocaine. I think the last time he did cocaine was last week. The patient has been highly advised against cocaine abuse. I will continue with daily cessation education. 9. Tobacco abuse. This patient has been highly advised against tobacco use as well. I will continue with cessation education. cc: Lance Hanna MD
[2018-05-16] MEDS: LABETALOL IV PRN (10:59)
[2018-05-16] MEDS ORDERED: APRESOLINE PO SCH (13:00)
[2018-05-16] MEDS: ALDACTONE PO SCH (15:42)
[2018-05-16] MEDS: TYLENOL PO PRN (21:29)
--- NOTE | 2018-05-17 00:51 | CARDIOLOGY PROGRESS NOTE ---
DATE: 05/16/2018 SUBJECTIVE: Mr. Sotomayor is doing well. He still is somewhat short of breath with ambulation. PHYSICAL EXAMINATION: Vital Signs: He is afebrile. Heart rate 83. Blood pressure 155/107. His checks on May 16 have ranged with systolics in the 140s to 180s, diastolics in the 90s to 110s. His Is and Os continue to be quite negative. His total output is net -10 L. General: No acute distress. Cardiovascular: He sounds to be in a regular rate and rhythm. No obvious murmurs. No S3. No lower extremity edema. Chest: Exam sounds relatively clear. Somewhat distant. No increased work of breathing. Abdomen: Soft, nontender. PERTINENT DATA: Lab data: Sodium 141, potassium 3.6, BUN 16, creatinine is 1.4, which is stable over the last several days. Magnesium level is 1.9. ASSESSMENT: Mr. Sotomayor is a 33-year-old gentleman who presented in diastolic failure, and has a significant degree of left ventricular hypertrophy on his echocardiogram, with poorly-controlled blood pressure and cocaine-positive urine drug screen. PLAN: He is continuing to diurese. His blood pressure is still quite elevated, but the overall trend seems improved. I have increased his hydralazine to 75 t.i.d., and Ativan and Aldactone. He will likely need escalation in his antihypertensives. He certainly would be somebody who we would like to use a beta-breanna in the future. However, his use of cocaine is somewhat limiting to this. I believe he would likely be reasonable for discharge in the next 48 hours or so. We certainly could go up on the clonidine dosage. However, with his history of noncompliance, this may be a poor medicine to use in a t.i.d. fashion. cc: Neto Caal MD
[2018-05-17] MEDS: LABETALOL IV PRN (02:31)
[2018-05-17] MEDS: LASIX IV SCH ×2 (04:25→15:39)
[2018-05-17] MEDS: MAXIPIME 1 GM in NS 50 ML IV SCH ×2 (04:25→15:39)
[2018-05-17 05:29] LABS: BASO# 0.02 X1000 (0.0-0.2); BASO% 0.2 % (0.0-0.8); EOS# 0.43 X1000 (0.0-0.7); EOS% 5.4 % (0.0-10.0); HEMATOCRIT 42.7 % (42.0-52.0); LYMPH# 1.89 X1000 (1.2-3.4); LYMPH% 23.5 % (20.5-51.1); MCH 24.1 PG (27-31); MCHC 30.4 g/dL (33-37); MCV 79.2 FL (81-99); MONO# 0.42 X1000 (0.11-0.59); MONO% 5.2 % (1.7-9.3); MPV 10.2 FL (7.4-10.4); NEUT# 5.27 X1000 (1.4-6.5); NEUT% 65.7 % (42.2-75.2); PLT 300 X1000 (130-400); RBC 5.39 XMIL (4.7-6.1); RDW 14.9 % (11.5-14.5); WBC 8.03 X1000 (4.8-10.8)
[2018-05-17] MEDS: PRILOSEC PO SCH ×2 (05:46→06:13)
[2018-05-17 05:50] LABS: AGAP 12; BUN 16 mg/dL (8-22); CHLORIDE 97 mmol/L (98-107); COSMO 277; CREATININE 1.2 mg/dL (0.7-1.2); ESTIMATED GFR > 60; GLUCOSE 93 mg/dL (70-104); IRON SATURATION 8 %; POTASSIUM 3.5 mmol/L (3.5-5.1); SODIUM 138 mmol/L (136-145); TCO2 29 mmol/L (25-35); TIBC 360 ug/dL; TOTAL IRON 30 ug/dL (53-167); UNBOUND IRON 330 ug/dL (112-346)
[2018-05-17 06:08] LABS: FERRITIN 155 ng/mL (30-400)
--- NOTE | 2018-05-17 07:11 | Diag Imaging Result Doc PS360 ---
EXAM: CHEST-PORTABLE 05/17/2018 HISTORY: dyspnea TECHNIQUE: AP portable at 0547 COMMENT: There is cardiomegaly. The interstitial opacities present on 05/15/2018 have diminished slightly. IMPRESSION: Improved pulmonary edema. Electronically signed by Erik Jarrell 05/17/2018 7:09 AM
[2018-05-17] MEDS: COZAAR PO SCH (08:50)
[2018-05-17] MEDS: APRESOLINE PO SCH ×3 (08:50→21:40)
[2018-05-17] MEDS: ALDACTONE PO SCH (08:50)
[2018-05-17] MEDS: CATAPRES PO SCH ×2 (08:50→21:39)
[2018-05-17] MEDS: NORVASC PO SCH (08:51)
[2018-05-17] MEDS: ZYVOX 600 MG/D5W 600 MG/300 ML IVPB IV SCH ×2 (08:51→21:39)
[2018-05-17] MEDS: HEPARIN SUBQ SCH ×2 (08:51→21:40)
--- NOTE | 2018-05-17 10:42 | PROGRESS NOTE ---
DATE: 05/17/2018 SUBJECTIVE: This patient is feeling much better, blood pressure is better controlled, but still in the 140s. Upon admission, it was in the 200s and 190s. He has a history of noncompliance. No acute events overnight. Kidney function is better. WBC today is normal. OBJECTIVE: Vital Signs: Temperature 98.2 degrees, pulse 79, respiratory rate 16, blood pressure 149/88, oxygen saturation 98 on 2 L of nasal cannula. HEENT: Head normocephalic. No trauma. PERRLA. Neck: Supple. No JVD. Central trachea. Chest: Decreased breath sounds globally mostly at the bases with some crepitus at the bases. Abdomen: Soft, nontender, nondistended. No hepatosplenomegaly. Extremities: Trace lower extremity edema. No clubbing. No cyanosis. Neurological examination: The patient is alert and oriented x3. No focal deficits. LABORATORY: WBC 8.0, hemoglobin 13, hematocrit 42.7, platelets 300. Sodium 138, potassium 3.5, chloride 97, bicarbonate 29. BUN 16, creatinine 1.2, glucose 93, calcium 9, magnesium 2. ASSESSMENT AND PLAN: 1. Diastolic heart failure. We will continue with diuresis. He seems to be doing better. I will evaluate this patient for home oxygen. Cardiology Department on board. Probably this patient will be discharged in the next 24 hours. 2. Hypercapnic respiratory failure. I think this is getting better. Continue with oxygen supplementation. He has some pneumonia that has been contributing to this problem, but the is getting better also. 3. Bilateral pneumonia. This patient's CT scan showed ground-glass opacity bilaterally. We will continue with antibiotics for now. 4. Hypertensive emergency, resolved. Blood pressure is still a little bit elevated at 140s. This patient will benefit from using beta blockers, but since he has a recent history of cocaine abuse, we will avoid that medication for now. 5. Chronic kidney disease. His baseline is around 1.3, today is 1.2. I think this is much better. We will continue with his medications and avoid nephrotoxic medications as much as we can. 6. Deep vein thrombosis prophylaxis with heparin subcutaneously. 7. Leukocytosis, resolved. 8. Drug abuse. This patient has been doing cocaine recently, I think last week. This patient has been highly advised against cocaine abuse. I will continue with daily cessation education. 9. Tobacco abuse. This patient has been highly advised against tobacco use. I will continue with daily cessation education. cc: Lance Hanna MD
[2018-05-18] MEDS: LABETALOL IV PRN (00:18)
[2018-05-18] MEDS: MAXIPIME 1 GM in NS 50 ML IV SCH (04:11)
[2018-05-18] MEDS: LASIX IV SCH (04:12)
[2018-05-18] MEDS: PRILOSEC PO SCH (06:29)
[2018-05-18 07:36] VITALS: BP 152/81
[2018-05-18] MEDS ORDERED: FOLIC ACID PO SCH (09:00)
[2018-05-18] MEDS: ZYVOX 600 MG/D5W 600 MG/300 ML IVPB IV SCH (09:47)
[2018-05-18] MEDS: NORVASC PO SCH (09:48)
[2018-05-18] MEDS: APRESOLINE PO SCH (09:48)
[2018-05-18] MEDS: COZAAR PO SCH (09:48)
[2018-05-18] MEDS: ALDACTONE PO SCH (09:48)
[2018-05-18] MEDS: HEPARIN SUBQ SCH (09:49)
[2018-05-18] MEDS: CATAPRES PO SCH (09:49)
--- NOTE | 2018-05-21 02:40 | DISCHARGE SUMMARY ---
ADMISSION DATE: 05/14/2018 DISCHARGE DATE: 05/18/2018 DISCHARGE DIAGNOSES: 1. Diastolic heart failure. 2. Hypercapnic respiratory failure. 3. Bilateral pneumonia. 4. Hypertensive emergency, resolved. 5. Chronic kidney disease. 6. Leukocytosis, resolved. 7. Drug abuse especially cocaine. 8. Tobacco abuse. PROCEDURES PERFORMED: 1. CT scan dated 05/14/2018, impression cardiomegaly cardiomyopathy, interstitial pulmonary edema, extensive ground glass interstitial infiltrates in the perihilar lungs bilaterally. 2. Echocardiogram dated 05/14/2018, ejection fraction 60% ,pulmonary artery systolic pressure 41 mmHg, normal left ventricular cavitary size, severe left ventricular hypertrophy. CONSULTATIONS: Cardiology Department Dr. Neto Caal. Pulmonary Department Dr. Quinones. HOSPITAL COURSE: The patient is a 33-year-old male with a past medical history of hypertension, CHF, medical noncompliance and polysubstance abuse, recently discharged from our facility on 04/15/2018. As per the patient for the past couple weeks he started having worsening shortness of breath mostly with physical activity as well as orthopnea, he was admitted on 05/14/2018. Also he was complaining of bilateral lower extremity edema. As per the patient since he was discharged he has been trying to obtain a primary care doctor but he does not have one. He states that he was taking all his medications as prescribed until the day before admission when he took only 1 clonidine tablet and other than this he did not take any of his blood pressure medication. He is reporting headache at this time, but no chest pain. He is short of breath and he has had a productive cough with brownish sputum as well as some blood. He denies abdominal pain, nausea, vomiting, diarrhea, hematochezia or melena. No dysuria. He went to the ER at [place] with shortness of breath and cough, and he told the ER physician that he used cocaine via inhalation 5 hours before, and the symptoms started 2 hours after that. According to the ER note he did report that he does use cocaine on a regular basis, but denies any other illicit drug use. He denies IV drug abuse actually. When we examined the patient he was sitting with not too much distress, actually he does not appear to be in any distress, he was tachycardic, dyspneic. On examination he was found to have JVD and positive hepatojugular reflex. Decreased breath sounds at the bases with some crackles, expiratory wheezing, lower extremity edema 3+. His white blood cell count was 26,850, his proBNP was 6862. Chest x-ray in [place] showed cardiomegaly and dense mid and lower lung infiltrates. The patient was then transferred to [facility] for admission of CHF exacerbation and bilateral pneumonia. He was placed on diuretics. We restarted his home medications. We tried to control his blood pressure as well, which was elevated mostly at the beginning. The Cardiology Department as well as the Pulmonary Department evaluated this patient. He was feeling better on a daily basis, and we actually removed around 21 L of fluid from his body with a total negative balance of 10.8 L. The patient was feeling better on a daily basis. We had an extremely large conversation about cocaine and tobacco abuse. This patient actually will be a good candidate for beta blockers but given his past medical history of cocaine and medical noncompliance we are going to hold this medication for now. At the end of his hospitalization he was stable, his oxygen saturation was around 96 on room air. He was not tachycardic or tachypneic. His blood pressure was mostly in the 140s-150s. I recommended to call for an appointment with Dr. Caal in 2 weeks, also stop smoking and using recreational drugs, as well as losing weight. He seems to understand as per the patient he will not do it again. OBJECTIVE: Vital Signs: Temperature 97.6, pulse 81, respiratory rate 21, blood pressure 152/81, oxygen saturation 96% on room air. HEENT: Head normocephalic and atraumatic. PERRLA. Neck: Supple. No JVD. No masses. Central trachea. Chest: Clear to auscultation. No wheezing. No rales. Some crepitus at the bases. Abdomen: Soft, nontender and nondistended. No hepatosplenomegaly. Extremities: Trace lower extremity edema. No clubbing. No cyanosis. Neurological: Alert and oriented x3. No focal deficits. LABORATORY DATA: Done on 05/17/2018, WBC 8, hemoglobin 13, hematocrit 42.7, platelets 300,000. Sodium 138, potassium 3.5, chloride 97, bicarbonate 29, BUN 16, creatinine 1.2, glucose 93, calcium 9. DISCHARGE MEDICATIONS: 1. Omeprazole 40 mg p.o. daily. 2. Losartan 100 mg p.o. daily. 3. Clonidine 0.2 mg p.o. b.i.d. 4. Amlodipine 10 mg p.o. daily. 5. Spironolactone 25 mg p.o. daily. 6. Levofloxacin 500 mg p.o. daily. 7. Hydralazine 75 mg p.o. 3 times a day. 8. Furosemide 40 mg p.o. b.i.d. 9. Folic acid 1 mg p.o. daily. 10. Ventolin HFA 2 puff inhaler q.6 hours as needed for shortness of breath. TIME SPENT: Time spent discharging this patient was 40 minutes. cc: Lance Hanna MD
== END 2018-05-18 13:18 | disposition home or self-care (01) | DRG 291 ==
LOC: P.ED 20:12 → SUATTDRO 05-14 → 3S 05-14 → 3N 05-17 17:53
PROVIDERS: ATTEND Internal Medicine
CPT/HCPCS: 71010; 71020; 71045; 71046; 71250; 80048; 80053; 80101; 80301; 80307; 80324; 80345; 80346; 80353; 80358; 80361; 80365; 81001; 82550; 82607; 82728; 82746; 82805; 83540; 83550; 83605; 83735; 83880; 83992; 84145; 84484; 85025; 85379; 85610; 86701; 87040; 87389; 93005; 93010; 93306; 93308; 94640; 94760; 94761; 94799; 96365; 96367; 96375; 97110; 97162; 97530; 99285; A9270; C8924; G0431; G0434; G0479; G0480; J0692; J0696; J1644; J1940; J2020; J3370; J7040; Q9957

== ENCOUNTER 2018-09-16 14:48 | Inpatient (IN) ==
--- NOTE | 2018-09-16 15:26 | Diag Imaging Result Doc PS360 ---
CT HEAD W/O CONTRAST - 09/16/2018 INDICATION: r/o stroke COMPARISON: 05/29/2018 FINDINGS: The ventricles and sulci are normal in size and contour. No intracranial mass or hemorrhage. The skull is intact. The sinuses mastoids and middle ears are clear. IMPRESSION: Negative exam. This exam was performed using automated exposure control, adjustment of mA or kV according to patient size, and/or use of iterative reconstruction technique Electronically signed by Gianni Sherwood 09/16/2018 3:24 PM
[2018-09-16] MEDS ORDERED: LABETALOL IV ONE ×2 (15:48→16:20)
[2018-09-16] MEDS ORDERED: CATAPRES PO ONE (15:49)
[2018-09-16 16:09] LABS: BASO# 0.06 X1000 (0.0-0.2); BASO% 0.5 % (0.0-0.8); EOS# 0.43 X1000 (0.0-0.7); EOS% 3.6 % (0.0-10.0); HEMATOCRIT 47.2 % (42.0-52.0); HEMOGLOBIN 16.5 g/dL (14.0-18.0); IMM GRAN# 0.03 X1000 (0.0-0.04); IMM GRAN% 0.2 % (0.0-0.5); LYMPH# 2.74 X1000 (1.2-3.4); LYMPH% 22.7 % (20.5-51.1); MCH 27.3 PG (27-31); MCV 78.1 FL (81-99); MONO# 0.64 X1000 (0.11-0.59); MONO% 5.3 % (1.7-9.3); MPV 11.1 FL (7.4-10.4); NEUT# 8.16 X1000 (1.4-6.5); NEUT% 67.7 % (42.2-75.2); PLT 183 X1000 (130-400); RBC 6.04 XMIL (4.7-6.1); RDW 15.6 % (11.5-14.5); WBC 12.06 X1000 (4.8-10.8)
--- NOTE | 2018-09-16 16:26 | Diag Imaging Result Doc PS360 ---
CHEST-PORTABLE - 09/16/2018 INDICATION: hypertensive emergency COMPARISON: 05/29/2018 FINDINGS: There is mild cardiomegaly. Pulmonary vascularity is top normal. No infiltrates or edema. No pneumothorax or pleural effusion. IMPRESSION: Mild cardiomegaly. Electronically signed by Gianni Sherwood 09/16/2018 4:24 PM
[2018-09-16 16:39] LABS: AGAP 13; ALB/GLOB RATIO 1.3; ALKALINE PHOSPHATASE 85 U/L (32-122); BUN 18 mg/dL (8-22); CALCIUM 8.7 mg/dL (8.8-10.2); CHLORIDE 104 mmol/L (98-107); COSMO 278; CREATININE 1.3 mg/dL (0.7-1.2); ESTIMATED GFR > 60; GLUCOSE 99 mg/dL (70-104); GOT 17 U/L (10-34); GPT 17 U/L (10-44); POTASSIUM 3.8 mmol/L (3.5-5.1); SODIUM 138 mmol/L (136-145); TCO2 21 mmol/L (25-35)
[2018-09-16] MEDS ORDERED: TYLENOL PO ONE (18:32)
[2018-09-16] MEDS ORDERED: ZOFRAN IV PRN (18:35)
[2018-09-16] MEDS: CARDENE 40 MG/NS 40 MG/200 ML PIGGYBACK IV SCH ×2 (18:53→22:54)
--- NOTE | 2018-09-16 20:35 | HISTORY AND PHYSICAL ---
PRIMARY CARE PROVIDER: Dr. Tucker out of [place]. CHIEF COMPLAINT: Headache for 4 days with blurred vision. HISTORY OF PRESENT ILLNESS: Mr. Ean Sotomayor is a 33-year-old male with a medical history of diastolic dysfunction, severe hypertension, chronic kidney disease stage 3, and most recently in May 2018, a cerebral bleed, where he was seen at [facility] or [place], and since then has had trace left weakness but mostly just numbness and tingling in the left hand. He now presents with complaints of a right-sided headache for 4 days, causing some blurred vision. It is also located behind the right eye. He states he got up about 3 o'clock this morning and took his morning medicines. He claims to take his medications as prescribed but was unable to tell us what medications he is on. He states he takes his blood pressure at home, and it runs anywhere from the 180s to the 200s over 140s or greater despite taking his home blood pressure medications. He does not follow up with a web communications specialist as an outpatient. Since he is symptomatic with a headache and blurred vision, we will put him on a Cardene drip and place him in the ICU for closer observation. PAST MEDICAL HISTORY: 1. Hypertension. 2. Chronic kidney disease stage 3. 3. Diastolic dysfunction on diuretics. 4. Medical noncompliance. 5. Cerebral bleed which left him with some trace left weakness but mostly just numbness and tingling in the left hand. 6. Hypertensive heart disease. 7. Morbid obesity with a BMI of 40.9. PAST SURGICAL HISTORY: No known surgical history. SOCIAL HISTORY: Denies tobacco, alcohol or illicit drug use. He does admit to some marijuana use, and apparently there is a history of regular cocaine abuse, although the patient will deny it. He claims he works at [employer]. FAMILY HISTORY: Mother had valvular disease and had to have a valve replacement. She has congestive heart failure and diabetes. Father is of unknown medical complication. ALLERGIES: Nitroglycerin and morphine. Apparently nitroglycerin causes nearly anaphylaxis reaction, and he gets diaphoretic and breaks out in a rash and has difficulty breathing. HOME MEDICATIONS: Have not been fully verified, but he has several medications listed from his last admission in April, which include Cozaar, Aldactone, Apresoline, Catapres, folic acid, Lasix, Norvasc, and Prilosec. REVIEW OF SYSTEMS: A 14-point review of systems is completed, and all are negative except as mentioned in the above HPI. PHYSICAL EXAMINATION: VITAL SIGNS: Temperature 98, heart rate 81, respiratory rate 18, blood pressure 203/138, O2 saturation 97% on room air. He is 6 feet 1 inch tall, 310 pounds, BMI 40.9. GENERAL: Mr. Ean Sotomayor is a 33-year-old male. He is in no acute distress. He is able to answer questions appropriately. HEENT: Atraumatic, normocephalic. Pupils equal, round, and reactive to light. Extraocular movements intact. There is some edema underneath the eyes. Some blurred vision noted in the bilateral eyes. CARDIOVASCULAR: S1 and S2. Regular rate and rhythm. No rubs, gallops, or murmurs. Trace lower extremity edema, +2 dorsalis and radial pulses. No JVD. No carotid bruits. PULMONARY: Clear to auscultate. Bilateral breath sounds. No accessory muscle use or work of breathing noted. GI: Soft, nontender, nondistended. Positive bowel sounds x4. EXTREMITIES: Moves all extremities equally. Full range of motion. NEUROLOGIC: A O x3. Follows commands. Sensory is intact. SKIN: Warm, dry and intact. LABORATORY DATA: White blood cells 12,000, hemoglobin 16, hematocrit 47, platelet count 183. Sodium 138, potassium 3.8, BUN 18, creatinine 1.3, glucose 99. Calcium 8.7. Bilirubin 0.60. AST 17, ALT 17, troponin less than 0.01. Albumin 4.0. IMAGING: Head CT: Negative exam. There is no intracranial mass or hemorrhage. The skull is intact, the sinuses, mastoids. The middle ears are clear. There is really no residual from the old hemorrhagic stroke. Chest x-ray: Mild cardiomegaly. EKG: Not uploaded yet. ASSESSMENT/PLAN: 1. Hypertensive urgency emergency. He essentially has malignant hypertension. He is having symptoms of having headache for 4 days with blurred vision with a history of a bleed. He is going to be admitted to the intensive care unit on a Cardene or nicardipine drip to manage his blood pressure more closely so we can get his oral medications resumed. Will get Cardiology consulted. 2. History of diastolic dysfunction. He is on diuretics for that, waiting for those to be reconciled so we can get those resumed. 3. History of cocaine abuse, but patient denies this. We are going to get a urine drug screen to evaluate, because this could also be adding to the hypertension. 4. Gastroesophageal reflux disease. Continue his Prilosec once it is verified. 5. Leukocytosis. I feel that this is probably reactive. There are no signs or symptoms of infection. 6. Chronic kidney disease stage 3. He is at baseline. He is stable. Creatinine is 1.3. He has been as high as 1.5. 7. Medical noncompliance. He is adamant that he takes his medications as prescribed, but he is unable to give details of what medications he actually takes. 8. Deep venous thrombosis prophylaxis with sequential compression devices. He cannot have blood thinners, as he has a cerebral bleed from May 2018. Dictated by JORDEN Macario for Devonte Uribe MD cc: JORDEN Macario MD Patient seen and examined by me. Patient presenting with hypertensive urgency and on iv cardene. Agree with the assessment and plan of the [employer]. Dr. Uribe. [facility] HOSPITALAdolfo
--- NOTE | 2018-09-17 01:10 | PROVIDER DOCUMENTATION ---
This chart was entered by Taniya Lerner Scribe, acting as scribe for Rachael Teresa MD. HPI-Headache - General Chief Complaint: STROKE ALERT Stated Complaint: MAY STROKE ANEURYSM, HAVING SYMPTOMS AGAIN Time Seen by Provider: 09/16/18 15:24 Source: patient Allergies/Adverse Reactions: Patient Allergies Allergy/AdvReac Type Severity Reaction Status Date / Time morphine Allergy HIVES Verified 09/16/18 15:47 nitroglycerin Allergy ANAPHYLAXIS Verified 09/16/18 15:47 Home Medications: Home Medication List Medication Instructions Recorded Confirmed Last Taken Type Losartan [Cozaar] 100 mg PO DAILY 12/21/17 05/14/18 Unknown History Amlodipine Besylate [Norvasc] 10 mg PO DAILY #90 tab 01/07/18 05/14/18 Unknown Rx Clonidine [Catapres] 0.2 mg PO BID #60 tab 04/15/18 05/14/18 Unknown Rx Omeprazole [Prilosec] 40 mg PO DAILY #30 capsule. 04/15/18 05/14/18 Unknown Rx Albuterol Sulfate Inhaler 2 puff INH Q6H PRN PRN #1 inhaler 05/18/18 Unknown Rx [Ventolin Hfa] Folic Acid 1 mg PO DAILY #60 tab 05/18/18 Unknown Rx Furosemide [Lasix] 40 mg PO BID #30 tab 05/18/18 Unknown Rx Hydralazine [Apresoline] 75 mg PO 0900,1500,2100 #180 tab 05/18/18 Unknown Rx Levofloxacin [Levaquin] 500 mg PO DAILY #5 tab 05/18/18 Unknown Rx Spironolactone [Aldactone] 25 mg PO DAILY #90 tab 05/18/18 Unknown Rx - History of Present Illness-Headache Nature of Presenting Problem: Patient is a 33 year old male who presents with right side headache and blurred vision that has been present for 4 days. Patient states he was diagnosed with an intracranial bleed in May. Patient states history of HTN and he is currently on 3 HTN medications. Denies missing a dose of medication. Headache Location: reports: other (right side) Quality of Pain: reports: throbbing Severity: reports: mild Onset/Duration: reports: 4 days ago Timing: reports: still present Modifying Factors: improves with: nothing Associated Symptoms: reports: vision changes (blurred) Similar Symptoms Previously?: Yes Recently seen or treated by another doctor?: No Review of Systems - Adult - REVIEW OF SYSTEMS - ADULT Constitutional: reports: no symptoms reported. denies: chills, fever, fatique Eyes: reports: see HPI, blurred vision. denies: decreased vision, double vision Ears, Nose, Mouth & Throat: reports: no symptoms reported Cardiovascular: reports: no symptoms reported. denies: chest pain, heart murmur, palpitations Respiratory: reports: no symptoms reported. denies: cough, shortness of breath, wheezing Gastrointestinal: reports: no symptoms reported Genitourinary: reports: no symptoms reported Musculoskeletal: reports: no symptoms reported. denies: back pain, muscle weakness, neck pain Integumentary: reports: no symptoms reported Neurological: reports: see HPI, headache/migraines (OSORIO). denies: dizziness/vertigo, paresthesia Psychiatric: reports: no symptoms reported Endocrine: reports: no symptoms reported Hematologic/Lymphatic: reports: no symptoms reported Allergic/Immunologic: reports: no symptoms reported All Other Systems: Reviewed and Negative Past History - Adult - PAST MEDICAL HISTORY-ADULT Review of Records: reports: Old Records Reviewed, Nursing Assessment Review, Medications Reviewed, Social history reviewed & non-contributory. Major Childhood Illnesses: reports: denies history Cardiovascular: reports: CHF, HTN Respiratory: reports: denies history Gastrointestinal: reports: denies history Obstetrical/Gynecological: reports: denies history Genitourinary: reports: denies history Musculoskeletal: reports: denies history Neurological: reports: denies history Psychiatric: reports: denies history Endocrine/Immune: reports: denies history Other Conditions: reports: denies history - PRIOR SURGERIES/PROCEDURES Surgical/Procedure History: reports: none - IMMUNIZATION STATUS Childhood Immunizations: See Nurse Assessment Flu Vaccine: See Nurse Assessment - FAMILY HISTORY Family History: reviewed, not pertinent - SOCIAL HISTORY Smoking: cigarettes (former) Substance Use: marijuana Physical Exam- Neurological - Physical Exam-Neuro Initial Vital Signs Reviewed: Yes General Appearance: alert, no apparent distress, obese. negative: lethargic, slow to respond Eye Exam: bilateral eye: normal inspection, PERRL, EOMI HENMT: moist mucous membranes, normal ENT inspection. negative: angioedema, hearing deficit Head Injury: no evidence of injury. negative: ecchymosis, lacerations Respiratory: chest non-tender, lungs clear, normal breath sounds. negative: card scraper ckles, stridor Cardiovascular: normal peripheral pulses, regular rate, rhythm. negative: tachycardia, systolic murmur Abdominal Exam: normal bowel sounds, non tender, soft. negative: guarding, rebound Psych/Mental Status: normal mood/affect, oriented x 3. negative: anxious Progress - PLAN OF CARE/RESULTS Progress/Plan/Lab Results: Vital Signs - 8 hr 09/16/18 17:27 09/16/18 18:39 09/16/18 18:47 Temperature 98 F Pulse Rate 92 H 80 81 Respiratory Rate 20 18 18 Blood Pressure 204/140 201/141 203/138 O2 Sat by Pulse Oximetry 97 96 97 09/16/18 19:06 09/16/18 19:26 09/16/18 20:07 Temperature Pulse Rate 85 92 H 96 H Respiratory Rate 18 24 18 Blood Pressure 190/134 188/127 182/118 O2 Sat by Pulse Oximetry 95 93 L 93 L 09/16/18 20:13 09/16/18 20:45 09/16/18 21:02 Temperature Pulse Rate 95 H 93 H Respiratory Rate 20 Blood Pressure 170/103 156/104 166/108 O2 Sat by Pulse Oximetry 93 L Laboratory Results - last 24 hr 09/16/18 09/16/18 09/16/18 15:40 15:40 15:40 WBC 12.06 H RBC 6.04 Hgb 16.5 Hct 47.2 MCV 78.1 L MCH 27.3 MCHC 35.0 RDW Std Deviation 15.6 H Plt Count 183 MPV 11.1 H Immature Gran % (Auto) 0.2 Neut % (Auto) 67.7 Lymph % (Auto) 22.7 [place] % (Auto) 5.3 Eos % (Auto) 3.6 Baso % (Auto) 0.5 Immature Gran # (Auto) 0.03 Neut # (Auto) 8.16 H Lymph # (Auto) 2.74 [place] # (Auto) 0.64 H Eos # (Auto) 0.43 Baso # (Auto) 0.06 Sodium 138 Potassium 3.8 Chloride 104 Carbon Dioxide 21 L Anion Gap 13 BUN 18 Creatinine 1.3 H Estimated GFR/1.73 m2 > 60 BUN/Creatinine Ratio 14 Glucose 99 Calculated Osmolality 278 Calcium 8.7 L Total Bilirubin 0.60 AST 17 ALT 17 Alkaline Phosphatase 85 Creatine Kinase Troponin T < 0.010 Kma-J-Lwlaqsgzacq Pept Total Protein 7.0 Albumin 4.0 Globulin 3.0 Albumin/Globulin Ratio 1.3 TSH 09/16/18 09/16/18 09/16/18 15:40 19:18 19:18 WBC RBC Hgb Hct MCV MCH MCHC RDW Std Deviation Plt Count MPV Immature Gran % (Auto) Neut % (Auto) Lymph % (Auto) [place] % (Auto) Eos % (Auto) Baso % (Auto) Immature Gran # (Auto) Neut # (Auto) Lymph # (Auto) [place] # (Auto) Eos # (Auto) Baso # (Auto) Sodium Potassium Chloride Carbon Dioxide Anion Gap BUN Creatinine Estimated GFR/1.73 m2 BUN/Creatinine Ratio Glucose Calculated Osmolality Calcium Total Bilirubin AST ALT Alkaline Phosphatase Creatine Kinase 73 Troponin T < 0.010 Wyf-E-Jqceawitawg Pept 2842 H Total Protein Albumin Globulin Albumin/Globulin Ratio TSH 09/16/18 19:18 WBC RBC Hgb Hct MCV MCH MCHC RDW Std Deviation Plt Count MPV Immature Gran % (Auto) Neut % (Auto) Lymph % (Auto) [place] % (Auto) Eos % (Auto) Baso % (Auto) Immature Gran # (Auto) Neut # (Auto) Lymph # (Auto) [place] # (Auto) Eos # (Auto) Baso # (Auto) Sodium Potassium Chloride Carbon Dioxide Anion Gap BUN Creatinine Estimated GFR/1.73 m2 BUN/Creatinine Ratio Glucose Calculated Osmolality Calcium Total Bilirubin AST ALT Alkaline Phosphatase Creatine Kinase Troponin T Tqp-B-Kdmddifjtsy Pept Total Protein Albumin Globulin Albumin/Globulin Ratio TSH 2.84 Orders Category Date Time Status Admit [facility] Routine AdmDCTranf 09/16/18 18:35 Active Activity - Strict Bedrest ORDERED Care 09/16/18 18:35 Active Apply Mechanical Device [QM] ORDERED Care 09/16/18 22:23 Active Intake and Output-Strict ORDERED Care 09/16/18 22:23 Active Nursing- MD Consult Request ROUTINE Care 09/16/18 18:35 Active Update & Confirm Home Medicati ROUTINE Care 09/16/18 18:35 Active Vital Signs Order Q 4-HR ASSESS Care 09/16/18 22:23 Active Z-Document. for Tele Applied ORDERED Care 09/16/18 22:23 Active Physician/Provider Consults Routine Cons 09/16/18 18:35 Ordered Social Service Consult Routine Cons 09/16/18 22:23 Active Heart Healthy Diet Diet 09/16/18 17:45 Active CHEST-PORTABLE [RAD] Routine Exams 09/17/18 06:[address] HEAD W/O CONTRAST [CT] Stat Exams 09/16/18 15:00 Completed cxr [CHEST-PORTABLE] [RAD] Stat Exams 09/16/18 15:47 Completed CBC WITH DIFF [HEME] Routine Lab 09/17/18 06:00 Ordered CBC WITH ELECTRONIC DIFF [HEME] Stat Lab 09/16/18 15:40 Completed CK TOTAL [CHEM] Q8H Lab 09/16/18 19:18 Completed CK TOTAL [CHEM] Q8H Lab 09/17/18 02:45 Ordered CK TOTAL [CHEM] Q8H Lab 09/17/18 10:45 Ordered COMPREHENSIVE METABOLIC PANEL [CHEM] Routine Lab 09/17/18 06:00 Ordered COMPREHENSIVE METABOLIC PANEL [CHEM] Stat Lab 09/16/18 15:40 Completed MAGNESIUM [CHEM] Routine Lab 09/17/18 06:00 Ordered PRO B-NATRIURETIC PEPTIDE Stat Lab 09/16/18 15:40 Completed PROTIME WITH INR [COAG] Routine Lab 09/17/18 06:00 Ordered PTT [COAG] Routine Lab 09/17/18 06:00 Ordered TROPONIN T Q8H Lab 09/16/18 19:18 Completed TROPONIN T Q8H Lab 09/17/18 02:35 Ordered TROPONIN T Q8H Lab 09/17/18 10:35 Ordered TROPONIN T Stat Lab 09/16/18 15:40 Completed TSH Stat Lab 09/16/18 19:18 Completed URINALYSIS W/POSS RFLX CULT [URINALYSIS] Stat Lab 09/16/18 19:01 Uncollected URINE DRUG SCREEN Stat Lab 09/16/18 18:57 Uncollected Acetaminophen [Tylenol] Med 09/16/18 18:32 Discontinued 650 mg PO NOW ONE Acetaminophen [Tylenol] Med 09/16/18 18:35 Active 650 mg PO Q6H PRN PRN Clonidine [Catapres] Med 09/16/18 15:49 Discontinued 0.2 mg PO NOW ONE Labetalol Med 09/16/18 15:48 Discontinued 10 mg IV NOW ONE Labetalol Med 09/16/18 16:20 Discontinued 10 mg IV NOW ONE Nicardipine 40 mg/Ns [Cardene 40 mg/Ns] Med 09/16/18 18:40 Active 40 mg in 200 ml IV As Directed mls/hr Ondansetron [Zofran] Med 09/16/18 18:35 Active 4 mg IV Q4H PRN PRN Telemetry [OM.EQ] Routine Oth 09/16/18 22:23 Active EKG [EKG] Routine Ther 09/17/18 08:00 Ordered Echo Spec/Color Doppler Routine Ther 09/17/18 07:00 Ordered Transfer/Admit Order [TRANSFER] Routine Transfer 09/16/18 18:30 Completed Result Diagrams: 09/16/18 15:40 09/16/18 15:40 - REASSESSMENT Reassessment #1 Time Reassessed: 17:36 Status: improving (BP improved to 184/143) - EKG 1 Time of EKG reading by physician:: 15:56 EKG Read and Signed by:: Rachael Ford EKG Interpretation (*Must complete 3 of following elements*): Abnormal (T wave abnormality, consider inferolateral ischemia) Rate: 87 Rhythm: normal sinus rhythm Dexter: normal HI Interval: normal Comments: possible left atrial enlargement; prolonged QT - XRAY 1 XRAY Study: Chest Impression: See EMR Report ( CHEST-PORTABLE - 09/16/2018 INDICATION: hypertensive emergency COMPARISON: 05/29/2018 FINDINGS: There is mild cardiomegaly. Pulmonary vascularity is top normal. No infiltrates or edema. No pneumothorax or pleural effusion. IMPRESSION: Mild cardiomegaly. Electronically signed by Gianni Sherwood 09/16/2018 4:24 PM 09/16/18 1624 Interpreting Physician: Gianni Sherwood MD Dictated Date/Time: 09/16/18 1624 cc: Rachael Ford MD; None,PCP) - CT/MRI 1 CT Study: Head Impression: See EMR Report (CT HEAD W/O CONTRAST - 09/16/2018 INDICATION: r/o stroke COMPARISON: 05/29/2018 FINDINGS: The ventricles and sulci are normal in size and contour. No intracranial mass or hemorrhage. The skull is intact. The sinuses mastoids and middle ears are clear. IMPRESSION: Negative exam. 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 Uribe Time Discussed: 18:31 Consult Disposition: Admit (Hx, PE and pt care discussed, accepted.) Departure - Departure Date of Disposition Decision: 09/16/18 Time of Disposition Decision: 18:30 DIAGNOSIS: Hypertensive emergency Disposition: ADMITTED INPATIENT 09 Certified Medical Emergency: Emergent Condition: Stable - Critical Care Note This patient required my direct & personal management of CC.: No Attestation - Physician/ NAYE Attestation Patient care was provided by Advanced Practice Provider:: No The physician spent face to face time with patient:: Yes Advanced Practice Provider documentation review:: Supervising physician onsite and consulted in the evaluation and care of this patient. The physician did have a face to face encounter with the patient. This chart was documented by the indicated scribe, (Taniya Lerner, Bettina) and accurately reflects the services I performed and decisions made by me, Rachael Ford MD, as attested by the provider's signature.
[2018-09-17] MEDS: TYLENOL PO PRN ×2 (06:54→16:28)
[2018-09-17 07:05] LABS: INR 0.93; PROTIME 13.2 Seconds (11.0-16.0)
[2018-09-17 07:06] LABS: PTT 29.4 Seconds (22.3-41.8)
[2018-09-17 07:15] LABS: BASO# 0.05 X1000 (0.0-0.2); BASO% 0.4 % (0.0-0.8); EOS# 0.48 X1000 (0.0-0.7); EOS% 3.6 % (0.0-10.0); HEMOGLOBIN 17.6 g/dL (14.0-18.0); IMM GRAN# 0.05 X1000 (0.0-0.04); IMM GRAN% 0.4 % (0.0-0.5); LYMPH# 2.43 X1000 (1.2-3.4); LYMPH% 18.4 % (20.5-51.1); MCH 27.2 PG (27-31); MCHC 34.5 g/dL (33-37); MCV 78.9 FL (81-99); MONO# 0.69 X1000 (0.11-0.59); MONO% 5.2 % (1.7-9.3); MPV 11.5 FL (7.4-10.4); NEUT# 9.51 X1000 (1.4-6.5); PLT 166 X1000 (130-400); RBC 6.46 XMIL (4.7-6.1); RDW 16.3 % (11.5-14.5); WBC 13.21 X1000 (4.8-10.8)
--- NOTE | 2018-09-17 07:32 | Diag Imaging Result Doc PS360 ---
EXAM: CHEST-PORTABLE INDICATION: r/o pulm edema TECHNIQUE: One view COMPARISON: 09/16/2018 FINDINGS: The lungs are grossly clear. There is no discrete pleural fluid collection or pneumothorax. Pulmonary vasculature is near the upper limit of normal but stable. Mild cardiomegaly is stable. IMPRESSION: Stable chest with borderline prominent central vasculature. Electronically signed by Diego Cordoba 09/17/2018 7:30 AM
[2018-09-17 07:39] LABS: AGAP 17; ALB/GLOB RATIO 1.3; ALKALINE PHOSPHATASE 85 U/L (32-122); BUN 15 mg/dL (8-22); CALCIUM 8.5 mg/dL (8.8-10.2); CHLORIDE 103 mmol/L (98-107); COSMO 279; CREATININE 1.2 mg/dL (0.7-1.2); ESTIMATED GFR > 60; GLUCOSE 80 mg/dL (70-104); GOT 17 U/L (10-34); GPT 20 U/L (10-44); MAGNESIUM 2.1 mg/dL (1.5-2.7); POTASSIUM 3.7 mmol/L (3.5-5.1); SODIUM 140 mmol/L (136-145); TCO2 20 mmol/L (25-35); TOTAL BILIRUBIN 0.53 mg/dL (0.20-1.00)
--- NOTE | 2018-09-17 07:51 | EKG Report ---
Test Performed on : 09/17/2018 07:01:03 AM Test Reason : chest pain Blood Pressure : / mmHG Vent. Rate : 079 BPM Atrial Rate : 079 BPM P-R Int : 170 ms QRS Dur : 090 ms QT Int : 440 ms P-R-T Axes : 050 056 158 degrees QTc Int : 504 ms Normal sinus rhythm. Possible Left atrial enlargement T wave abnormality, consider inferolateral ischemia Prolonged QT Abnormal ECG When compared with ECG of 16-SEP-2018 15:56, (Unconfirmed) No significant change was found Confirmed by Beto DUNCAN, Kiran Resendiz ([id number]) on 09/17/2018 9:44:49 AM
[2018-09-17] MEDS: CARDENE 40 MG/NS 40 MG/200 ML PIGGYBACK IV SCH ×4 (07:59→21:03)
--- NOTE | 2018-09-17 09:04 | EKG Report ---
Test Performed on : 09/16/2018 3:56:52 PM Test Reason : ED. NO EKG ORDER FOR MUSE Blood Pressure : / mmHG Vent. Rate : 087 BPM Atrial Rate : 087 BPM P-R Int : 166 ms QRS Dur : 088 ms QT Int : 392 ms P-R-T Axes : 058 007 149 degrees QTc Int : 471 ms Normal sinus rhythm. Possible Left atrial enlargement T wave abnormality, consider inferolateral ischemia Prolonged QT Abnormal ECG When compared with ECG of 29-MAY-2018 17:08, T wave inversion more evident in Lateral leads Unconfirmed Result
[2018-09-17] MEDS: HYDROCHLOROTHIAZIDE PO SCH (10:50)
[2018-09-17] MEDS: NORVASC PO SCH (10:50)
[2018-09-17] MEDS ORDERED: NORCO-7.5 PO ONE (10:51)
[2018-09-17 11:22] LABS: URINE SOURCE CLEAN CATCH
[2018-09-17 11:51] LABS: BILIRUBIN URINE NEGATIVE (NEGATIVE); BLOOD URINE NEGATIVE (NEGATIVE); COLOR YELLOW; GLUCOSE URINE TRACE mg/dL (NEGATIVE); KETONE URINE NEGATIVE (NEGATIVE); LEUKOCYTES URINE NEGATIVE (NEGATIVE); NITRITE URINE NEGATIVE (NEGATIVE); PH URINE 6.5; PROTEIN URINE TRACE mg/dL (NEGATIVE); SP GRAVITY URINE 1.019; TURBIDITY URINE CLEAR (CLEAR); UROBILINOGEN URINE NORMAL (NORMAL)
[2018-09-17 11:52] LABS: UR EPITHELIAL CELLS <10 /HPF (<10); URINE BACTERIA NEGATIVE /HPF; URINE RBC <10 /HPF (<10); URINE WBC <10 /HPF (<10)
[2018-09-17 12:01] LABS: UR AMPHETAMINES QUAL NONE DETECTED (NONE DETECT); UR BARBITUATES QUAL NONE DETECTED (NONE DETECT); UR BENZODIAZEPIN QUAL NONE DETECTED (NONE DETECT); UR CANNABINOIDS QUAL NONE DETECTED (NONE DETECT); UR COCAINE QUAL NONE DETECTED (NONE DETECT); UR METHADONE QUAL NONE DETECTED (NONE DETECT); UR OPIATES QUAL NONE DETECTED (NONE DETECT); UR OXYCODONE QUAL NONE DETECTED (NONE DETECT); UR PCP QUAL NONE DETECTED (NONE DETECT)
--- NOTE | 2018-09-17 12:34 | PROGRESS NOTE ---
DATE: 09/17/2018 SUBJECTIVE: The patient is resting in bed. OBJECTIVE: Vital Signs: Blood pressure 196/122, pulse is 93, respiration rate is 17, oxygen saturation 95%. HEENT: Atraumatic, normocephalic. Cardiovascular: S1, S2. Respiratory system: Evidence of good air entry bilaterally. Abdomen: Soft, nontender. No masses. Extremities: No evidence of edema. Central nervous system: No focal deficit noted. LAB STUDIES: Sodium is 140, potassium 3.7, chloride is 103, bicarb 28, BUN is 15, creatinine is 1.2. ASSESSMENT AND PLAN: 1. Hypertensive urgency. Optimize blood pressure control using parenteral agent. Transition to oral agent when appropriate. 2. History of substance abuse. Aware. 3. Gastroesophageal reflux disease. PPI. 4. Chronic kidney disease. Follow up on renal function. Avoid nephrotoxic agent. 5. Deep vein thrombosis prophylaxis. Sequential compression devices. 6. History of diastolic dysfunction. Stable. cc: Devonte Uribe MD
--- NOTE | 2018-09-17 13:12 | ECHO REPORT ---
ORDER DATE: 09/17/2018 INDICATION: Hypertension, CKD. FINDINGS: 1. Right atrium is mildly enlarged at 4.1 cm. 2. Mild tricuspid regurgitation. RV systolic pressure of 29. 3. Normal RV size and systolic function. 4. Trace pulmonic insufficiency. 5. Mild left atrial enlargement with a dimension of 4.1 cm and volume index of 32. 6. No mitral valve prolapse. Mild mitral regurgitation. No evidence of mitral stenosis. 7. Normal LV size with an end-diastolic dimension of 4.6 cm. Severe left ventricular hypertrophy with a posterior and interventricular septal wall thickness of 2 cm each. Normal LV systolic function. Estimated EF is 60% with normal wall motion. 8. Aortic valve opens well. It is trileaflet. No evidence of stenosis or insufficiency. 9. Aorta appears normal in visualized segments. 10. No pericardial effusion is identified. 11. This study does not appear to be significantly different than that performed in April 2018. cc: MD Hilary Downing CRNP
--- NOTE | 2018-09-17 14:25 | CONSULTATION ---
DATE OF CONSULTATION: 09/17/2018 IMPRESSIONS: 1. Hypertensive urgency. 2. Hypertensive cardiovascular disease with left ventricular hypertrophy and associated left ventricular diastolic dysfunction. 3. Inconsistent medical compliance. 4. History of previous cerebral bleed. 5. Morbid obesity. 6. Probable obstructive sleep apnea. RECOMMENDATIONS: 1. Resume amlodipine 10 mg daily and add hydrochlorothiazide 25 mg p.o. daily. 2. Depending on blood pressure response, anticipate he will likely need to resume losartan. 3. Rather than resume clonidine, consider use of labetalol if needed. 4. Ultimately patient will need screen for sleep apnea. HISTORY: This 33-year-old -Irish male with past history of severe hypertension, hypertensive cardiovascular disease with left ventricular diastolic dysfunction and left ventricular hypertrophy, obesity, chronic kidney disease and previous cerebral bleed in May 2018 presented to the emergency room with right-sided headache for several days. Blood pressure was markedly elevated. He was felt to have hypertensive urgency and has been started on a nicardipine drip intravenously. He still has some headache. He denies any chest discomfort or dyspnea. He reports compliance with medications and salt restriction. He does have some history of inconsistent medical compliance in the past. PAST MEDICAL HISTORY: 1. Severe hypertension. 2. Hypertensive cardiovascular disease with left ventricular hypertrophy and left ventricular diastolic dysfunction. 3. Hypertensive chronic kidney disease. 4. Obesity. 5. Previous cerebral bleed in May 2018. 6. Morbid obesity. 7. Probable obstructive sleep apnea. PAST SURGICAL HISTORY: None. ALLERGIES: He is allergic or intolerant to nitroglycerin and morphine. MEDICATIONS PRIOR TO ADMISSION: As listed. 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 He has been working with this employer for about 90 days and after another 30 days he would be eligible for benefits including health insurance. He does not smoke cigarettes. He smokes occasional marijuana. There is a past history of cocaine use but he no longer does this. He lives with his significant other and 3-year-old son. FAMILY HISTORY: Positive for hypertension and congestive heart failure, as well as diabetes mellitus. REVIEW OF SYSTEMS: Pulmonary: Negative. Gastrointestinal: Negative. Constitutional: Negative. Remainder of review of systems negative/noncontributory beyond history of present illness with 14 total systems reviewed. PHYSICAL EXAMINATION: General: This is an obese, adult -Irish male in no distress. Vital signs: Blood pressure 196/120, heart rate 93 and regular, oxygen saturation 95% on room air. HEENT: Extraocular muscles appear intact. Mucous membranes moist. Neck: Supple without jugular venous distention. There are no carotid bruits. Chest: Clear to auscultation. Cardiac exam: Reveals a regular rate and rhythm without appreciable murmur or gallop. Abdomen: Soft. Bowel sounds are normal. Extremities: Without edema. Neurologic: Reveals him to be alert and fully oriented. Speech is fluent. He moves all 4 extremities equally well. PERTINENT DATA: Twelve-lead EKG demonstrates sinus rhythm, left atrial abnormality, and left ventricular hypertrophy with repolarization abnormality. LABORATORY DATA: Includes a white blood cell count 13.21, hematocrit 51.0, hemoglobin 17.6, platelet count 166,000. Sodium 140, potassium 3.7, chloride 103, carbon dioxide 20, BUN 15, creatinine 1.2, magnesium 2.1. Initial troponin less than 0.01. Follow-up troponin less than 0.01. TSH 2.84. cc: Beau Adams MD
[2018-09-17] MEDS ORDERED: ALEVE PO PRN (18:26)
[2018-09-17] MEDS: TRANDATE PO SCH (20:29)
[2018-09-18 06:42] LABS: AGAP 12; BUN 21 mg/dL (8-22); CALCIUM 9.2 mg/dL (8.8-10.2); CHLORIDE 102 mmol/L (98-107); COSMO 277; CREATININE 1.4 mg/dL (0.7-1.2); ESTIMATED GFR > 60; GLUCOSE 94 mg/dL (70-104); MAGNESIUM 2.2 mg/dL (1.5-2.7); POTASSIUM 3.7 mmol/L (3.5-5.1); SODIUM 137 mmol/L (136-145); TCO2 23 mmol/L (25-35)
[2018-09-18] MEDS: TRANDATE PO SCH ×2 (08:26→20:37)
[2018-09-18] MEDS: NORVASC PO SCH (08:26)
[2018-09-18] MEDS: HYDROCHLOROTHIAZIDE PO SCH (08:26)
[2018-09-18] MEDS: CARDENE 40 MG/NS 40 MG/200 ML PIGGYBACK IV SCH ×2 (13:01→19:16)
--- NOTE | 2018-09-18 17:50 | PROGRESS NOTE ---
DATE: 09/18/2018 SUBJECTIVE: Patient is resting in bed. OBJECTIVE: Vital signs: Temperature 97.8 degrees, pulse 89, respiratory rate 17, blood pressure 174/115, oxygen saturation 99%. HEENT: Atraumatic, normocephalic. Cardiovascular System: S1, S2. Respiratory system has evidence of good air entry bilaterally. Abdomen is soft, nontender. No masses felt. Extremities: No evidence of edema. Central Nervous System: No obvious focal deficit noted. LABORATORIES: Sodium is 137, potassium is 3.7, chloride is 102, BUN is 21, creatinine is 1.4. ASSESSMENT AND PLAN: 1. Hypertensive urgency. Optimize blood pressure control using parenteral agent. We will begin transition to oral agent. Suspect elevated blood pressure related to substance abuse. However, we will initiate workup for secondary hypertension. We will get serum metanephrines, plasma aldosterone level, plasma renin activity, TSH level, as well as intact PTH level. Will also get a renal artery Doppler study. 2. Acute kidney injury. Maintain patient on intravenous fluids. Follow up on renal function. Avoid nephrotoxic agent. 3. Deep vein thrombosis prophylaxis. Sequential compression devices. 4. History of diastolic dysfunction. Stable. cc: Devonte Uribe MD MTDD
[2018-09-18] MEDS: APRESOLINE PO SCH (17:52)
[2018-09-18] MEDS: 1/2 NS 1,000 ML IV SCH (17:52)
--- NOTE | 2018-09-18 18:20 | PROGRESS NOTE ---
DATE: 09/18/2018 SUBJECTIVE: The patient continues with some mild headache. He continues on nicardipine drip intravenously for blood pressure. There has been no chest pain. No shortness of breath. OBJECTIVE: Vital signs: Blood pressure 173/110, heart rate 90, oxygen saturation 98% on room air. Neck: There is no significant jugular venous distention. Chest: Clear to auscultation. Cardiac exam: Reveals a regular rate and rhythm without appreciable murmur or gallop. Extremities: There is no evidence of peripheral edema. LABORATORY DATA: Includes a sodium 137, potassium 3.7, chloride 102, carbon dioxide 23, BUN 21, creatinine 1.4, magnesium 2.2, glucose 94. IMPRESSIONS: 1. Hypertensive urgency. Blood pressure remains elevated. 2. Hypertensive cardiovascular disease with left ventricular hypertrophy and left ventricular diastolic dysfunction. 3. History of previous cerebral bleed. 4. Morbid obesity. 5. Probable obstructive sleep apnea. RECOMMENDATIONS: 1. Agree with initiation of labetalol. 2. Add hydralazine to try and facilitate transition away from intravenous nicardipine. 3. Avoid nonsteroidal anti-inflammatories. 4. Consider low-dose angiotensin receptor blockers, such as losartan. cc: Beau Adams MD
--- NOTE | 2018-09-18 19:37 | Diag Imaging Result Doc PS360 ---
US DUPLEX RENAL ARTY/VEIN LMTD - 09/18/2018 INDICATION: r/o renal artery stenosis TECHNIQUE: COMPARISON: 08/16/2017 FINDINGS: The exam is extremely challenging due to the patient's large size. The kidneys are normal in size. No obstruction. The renal artery indices are grossly normal. IMPRESSION: No obvious acute disease. Electronically signed by Gianni Sherwood 09/18/2018 7:34 PM
[2018-09-18 21:01] LABS: AGAP 11; ALB/GLOB RATIO 1.3; ALKALINE PHOSPHATASE 92 U/L (32-122); BUN 20 mg/dL (8-22); CALCIUM 9.3 mg/dL (8.8-10.2); CHLORIDE 101 mmol/L (98-107); COSMO 277; CREATININE 1.3 mg/dL (0.7-1.2); ESTIMATED GFR > 60; GLUCOSE 107 mg/dL (70-104); GOT 13 U/L (10-34); GPT 19 U/L (10-44); POTASSIUM 3.6 mmol/L (3.5-5.1); SODIUM 137 mmol/L (136-145); TCO2 25 mmol/L (25-35); TOTAL BILIRUBIN 0.45 mg/dL (0.20-1.00); TOTAL PROTEIN 7.2 g/dL (6.3-8.3)
[2018-09-18] MEDS: TYLENOL PO PRN (22:33)
[2018-09-19] MEDS: APRESOLINE PO SCH ×3 (00:34→17:06)
[2018-09-19 06:47] LABS: BASO# 0.03 X1000 (0.0-0.2); BASO% 0.3 % (0.0-0.8); EOS% 3.6 % (0.0-10.0); HEMATOCRIT 47.6 % (42.0-52.0); HEMOGLOBIN 16.4 g/dL (14.0-18.0); IMM GRAN# 0.02 X1000 (0.0-0.04); IMM GRAN% 0.2 % (0.0-0.5); LYMPH# 1.99 X1000 (1.2-3.4); LYMPH% 17.9 % (20.5-51.1); MCH 27.5 PG (27-31); MCHC 34.5 g/dL (33-37); MCV 79.9 FL (81-99); MONO# 0.69 X1000 (0.11-0.59); MONO% 6.2 % (1.7-9.3); MPV 10.9 FL (7.4-10.4); NEUT# 7.98 X1000 (1.4-6.5); NEUT% 71.8 % (42.2-75.2); PLT 187 X1000 (130-400); RBC 5.96 XMIL (4.7-6.1); RDW 15.6 % (11.5-14.5); WBC 11.11 X1000 (4.8-10.8)
--- NOTE | 2018-09-19 08:50 | PROGRESS NOTE ---
DATE: 09/19/2018 SUBJECTIVE: Patient continues without chest discomfort or dyspnea or headache. He is presently off nicardipine drip. OBJECTIVE: Vital Signs: Blood pressure 143/105. Heart rate 74, oxygen saturation 98% on room air. Neck: There is no significant jugular venous distention. Chest: Chest is clear to auscultation. Cardiac: Regular rate and rhythm without appreciable murmur or gallop. Extremities: There is no evidence of peripheral edema. LABORATORY DATA: Includes a white blood cell count 11.1 hematocrit 47.6, hemoglobin 16.4, platelet count 187,000. IMPRESSION: 1. Hypertensive urgency. Improving. 2. Hypertensive cardiovascular disease with left ventricular hypertrophy and associated left ventricular diastolic dysfunction. 3. Previous intracerebral bleed. 4. Morbid obesity. 5. Probable obstructive sleep apnea. RECOMMENDATIONS: 1. Increase hydralazine further. 2. Reasonable to transfer to telemetry for further care. 3. Consider addition of low-dose losartan. 4. Ultimately patient needs screen for sleep apnea. cc: Beau Adams MD
[2018-09-19] MEDS: TRANDATE PO SCH (09:05)
[2018-09-19] MEDS: NORVASC PO SCH (09:05)
--- NOTE | 2018-09-19 12:05 | PROGRESS NOTE ---
DATE: 09/19/2018 SUBJECTIVE: The patient is resting in bed. Not in any obvious distress. OBJECTIVE: Vital signs are as follows: Temperature 97.9, pulse is 78, respiratory rate 17, blood pressure 167/106, oxygen saturation is 95%. HEENT: Atraumatic, normocephalic. Cardiovascular System: S1, S2. Respiratory system: Has evidence of good air entry bilaterally. Abdomen: Soft, nontender. No masses felt. Extremities: No evidence of edema. Central Nervous System: No obvious focal deficit noted. LABORATORY DATA: WBC is 11.11, hematocrit 47.6, platelet count is 187. Renal artery duplex scan: No obvious acute disease noted. ASSESSMENT AND PLAN: 1. Hypertensive urgency. Will transition the patient now from parenteral agent to oral agent and transfer the patient to the floor. Will follow up on workup initiated for secondary hypertension. 2. Acute kidney injury. Maintain patient on intravenous fluids. Continue to avoid nephrotoxic agents and follow up on renal function. 3. Deep venous thrombosis prophylaxis, sequential compression devices. 4. History of diastolic dysfunction. Stable. 5. Disposition: The patient can be transferred to the floor and can possibly be discharged home today. cc: Devonte Uribe MD
[2018-09-19] MEDS: 1/2 NS 1,000 ML IV SCH (17:12)
[2018-09-19 18:40] VITALS: BP 160/108
== END 2018-09-19 19:57 | disposition left against medical advice (07) | DRG 305 ==
LOC: ED 14:48 → ICU 21:10
PROVIDERS: ATTEND Internal Medicine
CPT/HCPCS: 70450; 71010; 71045; 80048; 80053; 80101; 80301; 80307; 80324; 80345; 80346; 80353; 80358; 80361; 80365; 81001; 82088; 82550; 83735; 83835; 83880; 83970; 83992; 84244; 84443; 84484; 85025; 85610; 85730; 93005; 93010; 93306; 93976; 96365; 96375; 96376; 99285; A9270; G0431; G0434; G0479; G0480

== ENCOUNTER 2018-11-25 15:37 | Observation (INO) ==
[2018-11-25] MEDS ORDERED: DECADRON IM ONE (15:59)
--- NOTE | 2018-11-25 16:07 | PROVIDER DOCUMENTATION ---
HPI-General Adult - General Chief Complaint: Cold Symptoms Stated Complaint: COUGH Time Seen by Provider: 11/25/18 15:54 Source: patient Allergies/Adverse Reactions: Patient Allergies Allergy/AdvReac Type Severity Reaction Status Date / Time morphine Allergy HIVES Verified 11/25/18 16:08 nitroglycerin Allergy ANAPHYLAXIS Verified 11/25/18 16:08 Home Medications: Home Medication List Medication Instructions Recorded Confirmed Last Taken Type Clonidine [Catapres] 0.2 mg PO BID 09/17/18 11/25/18 11/25/18 15:45 History Hydralazine [Apresoline] 25 mg PO BID 09/17/18 09/17/18 11/25/18 15:45 History Azithromycin [Zithromax Z-Telly] 250 mg PO DIRECTED #1 pkg 11/25/18 Unknown Rx D-Methorphan/P-Epd/Bpm [Bromfed Dm 5 - 10 ml PO Q4H PRN #120 ml 11/25/18 Unknown Rx Liquid] - History of Present Illness -Gen Adult Nature of Presenting Problems: 33yom present to ER with c/o cough congestion x 1 week. Reports productive cough with yellow/green phlegm. Reports chills at night but denies fever. Pt nontoxic in appearance. Location of Pain/Injury: reports: none Onset/Duration: reports: 1 week ago Associated Symptoms: reports: cough, fever/chills, sinus congestion/drainage, shortness of breath. denies: back/neck pain, chest pain, diarrhea, nausea, vomiting Review of Systems - Adult - REVIEW OF SYSTEMS - ADULT Constitutional: reports: see HPI, chills. denies: fever Eyes: reports: no symptoms reported Ears, Nose, Mouth & Throat: reports: see HPI, sinus problem. denies: hoarseness, throat pain Cardiovascular: reports: no symptoms reported. denies: chest pain Respiratory: reports: see HPI, cough, shortness of breath. denies: wheezing Gastrointestinal: reports: no symptoms reported. denies: nausea, vomiting Genitourinary: reports: no symptoms reported Musculoskeletal: reports: no symptoms reported Integumentary: reports: no symptoms reported Neurological: reports: no symptoms reported Psychiatric: reports: no symptoms reported Endocrine: reports: no symptoms reported Hematologic/Lymphatic: reports: no symptoms reported Allergic/Immunologic: reports: no symptoms reported All Other Systems: Reviewed and Negative Past History - Adult - PAST MEDICAL HISTORY-ADULT Review of Records: reports: Old Records Reviewed, Nursing Assessment Review, Medications Reviewed, Social history reviewed & non-contributory. Major Childhood Illnesses: reports: denies history Cardiovascular: reports: CHF, HTN, other (cardiomegaly) Respiratory: reports: denies history Gastrointestinal: reports: denies history Obstetrical/Gynecological: reports: denies history Genitourinary: reports: denies history Musculoskeletal: reports: denies history Neurological: reports: CVA Psychiatric: reports: denies history Endocrine/Immune: reports: denies history Other Conditions: reports: denies history - PRIOR SURGERIES/PROCEDURES Surgical/Procedure History: reports: none - IMMUNIZATION STATUS Childhood Immunizations: See Nurse Assessment Flu Vaccine: See Nurse Assessment - FAMILY HISTORY Family History: reviewed, not pertinent Physical Exam-General - PHYSICAL EXAM-ADULT Initial Vital Signs Reviewed: Yes - CONSTITUTIONAL General Appearance: appears well, alert, no apparent distress - EYES Eyes: pink conjunctivae - HEAD, EARS, NOSE, MOUTH & THROAT HENMT: moist mucous membranes, normal ENT inspection, TMs normal, pharynx normal (PND). negative: angioedema, pharyngeal erythema, frontal tenderness, maxillary tenderness - NECK Neck: full range of motion, supple, normal inspection - RESPIRATORY Respiratory: lungs clear, normal breath sounds, no respiratory distress, no accessory muscle use - CARDIOVASCULAR Cardiovascular: regular rate, rhythm - GASTROINTESTINAL (ABDOMEN) Abdominal Exam: normal bowel sounds - MUSCULOSKELETAL Back Exam: normal inspection Extremity: normal range of motion, normal gait, normal inspection - SKIN Integumentary: normal color, warm/dry - NEUROLOGIC Neurologic: grossly normal, no motor/sensory deficits - PSYCHIATRIC Psych/Mental Status: normal mood/affect, normal thought content, normal thought process, oriented x 3 Progress - PLAN OF CARE/RESULTS Progress/Plan/Lab Results: Vital Signs - 8 hr 11/25/18 15:49 Temperature 98.0 F Pulse Rate 98 H Respiratory Rate 20 Blood Pressure 209/136 O2 Sat by Pulse Oximetry 98 Orders Category Date Time Status Dexamethasone [Decadron] Med 11/25/18 15:59 Discontinued 10 mg IM NOW ONE Result Diagrams: 11/25/18 17:03 11/25/18 17:03 - REASSESSMENT Reassessment #1 Time Reassessed: 16:15 (Pt reports long hx of HTN. States 210/136 is "good" for him. 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 Will recheck BP.) Reassessment #2 Time Reassessed: 17:22 (discussed pt with Dr Baron, agrees with tx plan thus far. Suggests troponin. If labs WNL and BP trends down will dc home with abx) Reassessment #3 Time Reassessed: 18:50 (discussed results with pt and possible need for admission) - XRAY 1 XRAY Study: Chest Impression: See EMR Report (COMMENT: There is cardiomegaly. There is platelike atelectasis in the lingula. There is ill-defined opacity in both lung bases which was not present on 09/17/2018. IMPRESSION: Pulmonary edema versus pneumonia. Lingular atelectasis.) - CONSULTS/PCP/HOSPITALIST Notification #1 *Consult/PCP/Hospitalist*: Dr Baer Time Discussed: 20:08 (suggests lasix 60mg IV) Consult Disposition: Will see in ED, Admit Departure - Departure Date of Disposition Decision: 11/25/18 Time of Disposition Decision: 16:01 DIAGNOSIS: Hypertensive emergency, Elevated brain natriuretic peptide (BNP) level Pneumonia Qualifiers: Pneumonia type: due to unspecified organism Laterality: unspecified laterality Lung location: unspecified part of lung Qualified Code(s): J18.9 - Pneumonia, unspecified organism CHF (congestive heart failure) Qualifiers: Heart failure type: unspecified Heart failure chronicity: acute on chronic Qualified Code(s): I50.9 - Heart failure, unspecified Disposition: ADMITTED INPATIENT 09 Certified Medical Emergency: Emergent Condition: Stable Additional Freetext Instructions: rest increase fluids complete Rx as directed return to ER or follow up with PCP if symptoms change, worsen, or persist ED Follow Up Instructions: You have been treated by a care provider in the Emergency Department. These instructions are being provided to you so you can have an understanding of how to care for yourself upon discharge. Upon discharge from the Emergency Department, you are responsible for making arrangements for follow-up care by a physician of your choice. Take all prescribed medications as directed. Return to the Emergency Department immediately for any new or worsening symptoms. You may call the Physician Referral phone number at [phone] to obtain a list of Physicians who are taking new patients. Prescriptions: D-Methorphan/P-Epd/Bpm [Bromfed Dm Liquid] 5 - 10 ml PO Q4H PRN #120 ml PRN Reason: Cough Azithromycin [Zithromax Z-Telly] 250 mg PO DIRECTED #1 pkg Referrals and Follow-Ups: None,PCP [Primary Care Provider] - - Critical Care Note This patient required my direct & personal management of CC.: No Attestation - Physician/ NAYE Attestation Patient care was provided by Advanced Practice Provider:: Yes Advanced Practice Provider:: Mulugeta Castillo Advanced Practice Provider documentation review:: The Mid-level provider documentation, treatment plan and medical decision making was reviewed by the physician who agrees with all treatment and medical decision making by the MLP. The physician spent face to face time with patient:: No Advanced Practice Provider documentation review:: Supervising physician onsite and consulted in the evaluation and care of this patient. The physician did not have a face to face encounter with the patient.
--- NOTE | 2018-11-25 16:35 | Diag Imaging Result Doc PS360 ---
EXAM: CHEST-2 VIEWS 11/25/2018 HISTORY: cough TECHNIQUE: PA and lateral chest COMMENT: There is cardiomegaly. There is platelike atelectasis in the lingula. There is ill-defined opacity in both lung bases which was not present on 09/17/2018. IMPRESSION: Pulmonary edema versus pneumonia. Lingular atelectasis. Electronically signed by Erik Jarrell 11/25/2018 4:33 PM
[2018-11-25 17:21] LABS: URINE SOURCE CLEAN CATCH
[2018-11-25] MEDS ORDERED: CATAPRES PO ONE (17:22)
[2018-11-25 17:24] LABS: BILIRUBIN URINE NEGATIVE (NEGATIVE); BLOOD URINE TRACE (NEGATIVE); COLOR YELLOW; GLUCOSE URINE TRACE mg/dL (NEGATIVE); KETONE URINE NEGATIVE (NEGATIVE); LEUKOCYTES URINE NEGATIVE (NEGATIVE); NITRITE URINE NEGATIVE (NEGATIVE); PROTEIN URINE 100 mg/dL (NEGATIVE); SP GRAVITY URINE 1.029; TURBIDITY URINE CLEAR (CLEAR); UR EPITHELIAL CELLS <10 /HPF (<10); URINE BACTERIA NEGATIVE /HPF; URINE RBC <10 /HPF (<10); URINE WBC <10 /HPF (<10); UROBILINOGEN URINE 2 mg/dL (NORMAL)
[2018-11-25] MEDS ORDERED: XYLOCAINE-MPF 1% INJ ONE (17:24)
[2018-11-25] MEDS ORDERED: ROCEPHIN IM ONE (17:24)
[2018-11-25 17:27] LABS: BASO# 0.09 X1000 (0.0-0.2); BASO% 0.7 % (0.0-0.8); EOS# 0.46 X1000 (0.0-0.7); EOS% 3.8 % (0.0-10.0); HEMATOCRIT 42.2 % (42.0-52.0); HEMOGLOBIN 14.4 g/dL (14.0-18.0); IMM GRAN# 0.02 X1000 (0.0-0.04); IMM GRAN% 0.2 % (0.0-0.5); LYMPH# 2.43 X1000 (1.2-3.4); LYMPH% 19.8 % (20.5-51.1); MCH 27.4 PG (27-31); MCHC 34.1 g/dL (33-37); MCV 80.4 FL (81-99); MONO% 8.2 % (1.7-9.3); MPV 10.9 FL (7.4-10.4); NEUT# 8.25 X1000 (1.4-6.5); NEUT% 67.3 % (42.2-75.2); PLT 174 X1000 (130-400); RBC 5.25 XMIL (4.7-6.1); RDW 13.4 % (11.5-14.5); WBC 12.25 X1000 (4.8-10.8)
[2018-11-25 17:39] LABS: UR AMPHETAMINES QUAL NONE DETECTED (NONE DETECT); UR BARBITUATES QUAL NONE DETECTED (NONE DETECT); UR BENZODIAZEPIN QUAL NONE DETECTED (NONE DETECT); UR CANNABINOIDS QUAL PRESUMPTIVE POSITIVE (NONE DETECT); UR COCAINE QUAL NONE DETECTED (NONE DETECT); UR METHADONE QUAL NONE DETECTED (NONE DETECT); UR OPIATES QUAL NONE DETECTED (NONE DETECT); UR OXYCODONE QUAL NONE DETECTED (NONE DETECT); UR PCP QUAL NONE DETECTED (NONE DETECT)
[2018-11-25 17:49] LABS: AGAP 11; ALB/GLOB RATIO 1.4; ALBUMIN 3.8 g/dL (3.5-5.0); ALKALINE PHOSPHATASE 78 U/L (32-122); BUN 15 mg/dL (8-22); CHLORIDE 101 mmol/L (98-107); COSMO 272; CREATININE 1.2 mg/dL (0.7-1.2); ESTIMATED GFR > 60; GLUCOSE 117 mg/dL (70-104); GOT 15 U/L (10-34); GPT 13 U/L (10-44); POTASSIUM 3.5 mmol/L (3.5-5.1); SODIUM 135 mmol/L (136-145); TCO2 23 mmol/L (25-35); TOTAL BILIRUBIN 0.99 mg/dL (0.20-1.00); TOTAL PROTEIN 6.5 g/dL (6.3-8.3)
[2018-11-25] MEDS ORDERED: LASIX IV ONE (20:08)
[2018-11-25] MEDS ORDERED: NORVASC PO ONE (20:37)
[2018-11-25] MEDS ORDERED: ALDACTAZIDE 25/25 PO ONE (20:37)
[2018-11-25] MEDS ORDERED: KLOR-CON PO ONE (20:38)
--- NOTE | 2018-11-25 21:13 | HISTORY AND PHYSICAL ---
REASON FOR ADMISSION: One week history of progressive shortness of breath. HISTORY OF PRESENT ILLNESS: Mr. Sadi Sotomayor is a 33-year-old man with difficult to control high blood pressure,, who was last seen here in September 2018, admitted for hypertensive emergency. 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 Today, patient comes in complaining of progressive shortness of breath for the last 1 week. He says that up until about 2 weeks ago he had no limitations when he ambulated as per his exercise tolerance. He says now he can barely go 25 feet today. He also admits to a 2 day history of orthopnea and PND. He also complains of a cough productive of yellowish sputum, brownish sputum, and sometimes greenish sputum. Admits to having subjective chills and fevers with sweats at night. No close contacts. He denies any increased abdominal girth or leg swelling. He denies any palpitations or chest pain or anginal-type symptoms. No focal neurological complaints, headache, or visual problems. Urinary output has not been altered, also. No rash or arthralgia. No polyuria or polydipsia. REVIEW OF SYSTEMS: Twelve system review was done. Positive findings per HPI. ALLERGIES: Nitroglycerin and morphine. HOME MEDICATIONS: Does not have his list, but states that he is on clonidine and hydralazine. He also reports that his blood pressure has been running in the 160 to 170 systolic range, which is "his baseline". SOCIAL HISTORY: Does not smoke, drink, or use illicit drugs. Uses marijuana occasionally. FAMILY HISTORY: Mother has had valvular heart disease, type 2 diabetes. SURGICAL HISTORY: Nil. LAB WORK: Chest film just shows mild increased vascular markings. White count 12,000, hemoglobin and hematocrit 14 and 42, platelets 174,000 with normal differential. Sodium 135, potassium 3.5, BUN 15, creatinine 1.2. Troponin is negative. ProBNP 4300. UDS positive for cannabinoids. Urinalysis positive for 100 mg of protein, trace blood. EKG not available for review at this time. PHYSICAL EXAMINATION: VITAL SIGNS: Blood pressure 191/75, heart rate 83, respirations are 16, temperature is 98.6 degrees. He is a morbidly obese man in no acute distress. He is alert and oriented x3. Normal mood and affect. HEAD: Normocephalic, atraumatic. EYES: PERRLA. EOMI. Anicteric. Not pale. ENT: Exam is grossly normal. NECK: Short and thick with positive hepatojugular reflux. No bruit. No thyromegaly. CHEST: Surprisingly is clear to auscultation. Good air entry in both lung [place]. CARDIOVASCULAR: 1st and 2nd heart sounds heard. No gallops, rubs. Rhythm is regular. ABDOMEN: Protuberant, soft. No focal tenderness. Bowel sounds are hyperactive. EXTREMITIES: No edema, clubbing, or peripheral cyanosis. Distal pulse volume is regular with good volume and symmetrical. NEUROLOGICAL: No gross focal deficits. Cranial nerves 2 through 12 are intact. SKIN: Intact. No breakdown, lesions, or erythema. MUSCULOSKELETAL: Exam is grossly normal. ASSESSMENT: 1. Hypertensive crisis, complicated by mild pulmonary edema. 2. Probable pneumonia. 3. Hypertensive heart disease. 4. Morbid obesity. 5. Possible risk of sleep apnea. PLAN: 1. Patient will be aggressively diuresed and antihypertensives initiated. I have added on Norvasc and Aldactazide to his regimen of clonidine and hydralazine. I do believe the dose of hydralazine can be further increased. 2. I will consult Dr. Quinones for possible outpatient sleep evaluation to rule out sleep apnea, which could be playing a role in his difficult to control blood pressure. 3. For now, we will also treat patient empirically with Rocephin and Zithromax for possible pneumonia. 4. Repeat chest film in the morning to evaluate clearance of findings noted on chest film. If they clear, then probably this patient may have only had pulmonary edema. However, if findings still remain the same, it is possible the patient may have coexisting pneumonia. cc: MD Dr. Scott Morrell
[2018-11-26] MEDS ORDERED: TYLENOL PO PRN (00:24)
[2018-11-26] MEDS ORDERED: ZOFRAN IV PRN (00:24)
[2018-11-26] MEDS: CATAPRES PO SCH ×3 (00:49→20:56)
[2018-11-26] MEDS: KLOR-CON PO SCH ×2 (00:50→08:00)
[2018-11-26] MEDS: ZITHROMAX PO SCH ×2 (00:50→08:00)
[2018-11-26 05:52] LABS: BASO# 0.06 X1000 (0.0-0.2); BASO% 0.4 % (0.0-0.8); EOS# 0.57 X1000 (0.0-0.7); HEMOGLOBIN 15.1 g/dL (14.0-18.0); IMM GRAN# 0.02 X1000 (0.0-0.04); IMM GRAN% 0.1 % (0.0-0.5); LYMPH# 2.43 X1000 (1.2-3.4); LYMPH% 17.2 % (20.5-51.1); MCH 27.1 PG (27-31); MCHC 33.6 g/dL (33-37); MCV 80.8 FL (81-99); MONO# 1.15 X1000 (0.11-0.59); MONO% 8.1 % (1.7-9.3); MPV 10.7 FL (7.4-10.4); NEUT# 9.91 X1000 (1.4-6.5); NEUT% 70.2 % (42.2-75.2); PLT 192 X1000 (130-400); RBC 5.57 XMIL (4.7-6.1); RDW 13.3 % (11.5-14.5); WBC 14.14 X1000 (4.8-10.8)
[2018-11-26] MEDS: LASIX IV SCH ×2 (05:53→18:56)
[2018-11-26 06:00] LABS: AGAP 14; BUN 16 mg/dL (8-22); CALCIUM 9.5 mg/dL (8.8-10.2); CHLORIDE 100 mmol/L (98-107); COSMO 278; CREATININE 1.4 mg/dL (0.7-1.2); ESTIMATED GFR > 60; GLUCOSE 125 mg/dL (70-104); MAGNESIUM 2.1 mg/dL (1.5-2.7); POTASSIUM 3.6 mmol/L (3.5-5.1); SODIUM 138 mmol/L (136-145); TCO2 24 mmol/L (25-35)
[2018-11-26 06:23] LABS: EOS 3 % (1-10); LYMPHS 14 % (21-51); MONO 7 % (1-9); SEGS 76 % (42-75)
[2018-11-26] MEDS: DUONEB (A & A) INH SCH ×3 (07:55→22:30)
[2018-11-26] MEDS: NORVASC PO SCH (08:00)
[2018-11-26] MEDS: ALDACTAZIDE 25/25 PO SCH (08:01)
--- NOTE | 2018-11-26 09:03 | PROGRESS NOTE ---
DATE: 11/26/2018 Mr. Sotomayor was admitted yesterday. He came in with a one-week history of shortness of breath. This is a 33-year-old, man with [id number] blood pressure. Seen here back in September of 2018, admitted for hypertensive emergency. The patient has not been compliant with his medication and was admitted back in May of this year with malignant hypertension culminating in an intracranial bleed. The patient is complaining of progressive shortness of breath for over a week. States that 2 weeks ago, he had no limitations and ambulated and exercised with tolerance. He could barely go 25 feet. Admits to a two-day history of orthopnea and paroxysmal nocturnal dyspnea. He also complains of a productive cough, yellow sputum, brownish sputum, sometimes greenish sputum. Admits to having subjective chills and fever and sweats. He has no close contacts. He denies any increased abdominal girth or leg swelling. Denies any palpitations or chest pain or anginal-type symptoms. No focal neurologic complaints, headache, or visual problems. His urine output has been altered. No rash or arthralgia. No polyuria or polydipsia. He does not smoke. No illicit drugs. Uses marijuana occasionally. PHYSICAL EXAMINATION: On exam today, he feels better. He just had a breathing treatment. Vital Signs: His temperature is 98.0 degrees, pulse 86, respirations 30. Blood pressures, the last three were 191/125, 180/110, 170/97. Pupils are equal. No distended neck veins. Lungs are clear in all lung [place]. Cardiovascular Examination: Regular rhythm and rate without murmur or S3. Abdomen is soft. Skin is warm and dry urine. Output is almost 8 L. ASSESSMENT AND PLAN: 1. Hypertensive crisis or hypertensive urgency complicated by pulmonary edema, pulmonary venous hypertension. This seems to be improved. We will continue to adjust his medicines, control his afterload. 2. Probable pneumonia. Continue present intravenous antibiotics. 3. Hypertensive heart disease. 4. Morbid obesity. 5. Risk of sleep apnea. CURRENT ORDERS: He is on Norvasc 10 mg a day and he got 1 dose of Lasix 60 mg yesterday. He got 1 dose of spironolactone. I am going to put him on lisinopril 10 mg twice a day. We will start off on that and see if we can get his blood pressure down. cc: Kiran Pérez MD
--- NOTE | 2018-11-26 09:05 | Diag Imaging Result Doc PS360 ---
CHEST-2 VIEWS - 11/26/2018 INDICATION: CHF vs PNA COMPARISON: 11/25/2018 FINDINGS: There are some stable mild scattered bilateral basilar interstitial infiltrate. The appearance is indeterminate. No pneumothorax or pleural effusion. Heart size remains enlarged. IMPRESSION: No change from prior. Electronically signed by Gianni Sherwood 11/26/2018 9:03 AM
[2018-11-26] MEDS: PRINIVIL PO SCH ×2 (09:39→20:56)
[2018-11-26] MEDS: ROCEPHIN 1 GM in NS 50 ML IV SCH (12:56)
--- NOTE | 2018-11-26 13:31 | CONSULTATION ---
DATE OF CONSULTATION: 11/26/2018 REQUESTING PROVIDER: Michaela Baer MD REASON FOR CONSULTATION: Sleep evaluation. HISTORY OF PRESENT ILLNESS: This is a 33-year-old male with medical history of congestive heart failure, hypertension, and cerebrovascular accident. He presented to the ER yesterday afternoon with worsening cough and congestion for 1 week. Initial workup in the ER revealed hypertensive crisis complicated by mild pulmonary edema and probable pneumonia. He has been admitted to the [facility] for further evaluation and management. The patient currently is lying in bed comfortably. He states he is feeling better. He still has shortness of breath and productive cough with brownish phlegm, but no fever or chills, chest pain, palpitation, wheezing, constipation, diarrhea, pedal edema, snoring, daytime sleepiness or morning headache. He reports he has some sinus issue and tiredness at times. He cannot tolerate lying flat and he has to sleep on 2 to 3 pillows recently. PAST MEDICAL HISTORY: 1. Congestive heart failure. 2. Hypertension difficult to control. 3. History of cerebral vascular accident. PAST SURGICAL HISTORY: None. SOCIAL HISTORY: The patient is a former smoker. He has no current smoking, drinking, or illicit drug use. He uses marijuana once a week. FAMILY HISTORY: Positive for heart disease and diabetes mellitus type 2. ALLERGIES: Nitroglycerin and morphine. REVIEW OF SYSTEMS: A 10-point review of systems was conducted and the pertinent is listed within the HPI, otherwise noncontributory. PHYSICAL EXAMINATION: Vital Signs: Temperature 98 degrees, blood pressure 170/97, pulse 86, respiratory rate 31, oxygen saturation 97% on room air. General: Morbidly obese, lying in bed in no acute distress. HEENT: Atraumatic, normocephalic. Trachea midline. Mucosa pink and moist. Respiratory: Breathing even and unlabored. Symmetrical excursion. Clear to auscultation bilaterally. Cardiovascular: Regular rate and rhythm. Gastrointestinal: Obese, soft, nontender. Normoactive bowel sounds in all 4 quadrants. Extremities: No pedal edema. No cyanosis. No clubbing. Dorsalis pedis 1+ bilaterally. Neurologic: Alert oriented x3. Speech fluent. Follows commands. LABORATORY DATA: White blood cell 14.14, hemoglobin 15.1, hematocrit 45.0, platelet 192,000. Sodium 138, potassium 3.6, chloride 100, carbon dioxide 24, BUN 16, creatinine 1.4, glucose 125. IMAGING DATA: Chest x-ray shows no change from previous with stable mild scattered bilateral basilar interstitial infiltrate and enlarged heart. ASSESSMENT: This is a 33-year-old male with a medical history of congestive heart failure, hypertension and cerebrovascular accident. He has been admitted since yesterday with hypertensive crisis complicated by mild pulmonary edema and probable pneumonia. 1. Pulmonary edema vs. pneumonia. 2. Questionable sleep apnea. 3. Morbid obesity, current BMI 42.2. PLAN: 1. Continue antibiotic including azithromycin and ceftriaxone. 2. Continue diuretics. 3. Outpatient sleep study. 4. Educate patient to sleep on his side or back as tolerated. 5. Encourage to lose weight with diet and exercise. 6. Further recommendations pending hospital course. Thank you for the courtesy of this consult. Dictated by JORDEN Mota for Edie Quinones MD cc: JORDEN Mota MD [facility]
[2018-11-27] MEDS: LASIX IV SCH (05:40)
--- NOTE | 2018-11-27 06:53 | DISCHARGE SUMMARY ---
ADMISSION DATE: 11/25/2018 DISCHARGE DATE: 11/27/2018 HISTORY AND HOSPITAL COURSE: Has no primary care physician. Had a 1-week history of progressive shortness of breath. This is a 33-year-old, male who is difficult to control blood pressure. Last seen here in September 2018, admitted for hypertensive emergency. Believe patient was not compliant with the medication. Was admitted back in May as well with hypertensive urgency culminating in an intracranial bleed so very likely malignant hypertension. So, the patient admitted, put on antihypertensives. His lab was followed closely. Hematocrit is 45, hemoglobin 15, white count was 12,000 to 14,000. Chemistries: Sodium 138, potassium 3.6, creatinine between 1.2 and 1.4. Troponin and CK are unremarkable. Chest x-ray, no change. The patient had an aortorenal ultrasound done on 09/18/2018. No obvious acute disease. Cardiology had seen him before. He had hypertensive cardiomyopathy, ejection fraction showing 60% severe LVH with posterior thickness 1.7, septal thickness 2.0 cm, severe left atrial enlargement, so I have encouraged him to pursue weight reduction and take his medications. He showed marked blood pressure, last 3 numbers 180/110, 133/79, 143/94, so hoping to let him to go home. DISCHARGE MEDICATIONS: Have changed a little bit so I am going to put him on Norvasc 10 mg once a day, Catapres 0.2 mg b.i.d., Lasix he will take 40 mg just p.o. once a day, Prinivil 10 mg twice a day. LABORATORY DATA: Yesterday, sodium 138, potassium 3.6, bicarb 24, BUN 16, creatinine 1.4. cc: Kiran Pérez MD
[2018-11-27] MEDS: DUONEB (A & A) INH SCH (07:35)
[2018-11-27] MEDS: NORVASC PO SCH (08:48)
[2018-11-27] MEDS: CATAPRES PO SCH (08:48)
[2018-11-27] MEDS: ALDACTAZIDE 25/25 PO SCH (08:48)
[2018-11-27] MEDS: KLOR-CON PO SCH (08:48)
[2018-11-27] MEDS: PRINIVIL PO SCH (08:48)
[2018-11-27] MEDS: ZITHROMAX PO SCH (08:48)
[2018-11-27 12:22] VITALS: BP 131/79
[2018-11-27] MEDS: ROCEPHIN 1 GM in NS 50 ML IV SCH (12:52)
== END 2018-11-27 15:50 | disposition home or self-care (01) | DRG 304 ==
LOC: ED 15:37 → SUATTDRO 23:37 → 3S 23:37 → INTOOBSV 23:37 → 2N 11-26 12:13
PROVIDERS: ATTEND Emergency Medicine

== ENCOUNTER 2019-01-29 08:43 | Inpatient (IN) ==
--- NOTE | 2019-01-29 09:16 | PROVIDER DOCUMENTATION ---
HPI-Respiratory General - General Chief Complaint: SEPSIS ALERT - D Stated Complaint: SOB,COUGHING,CONGESTED Time Seen by Provider: 01/29/19 09:12 Source: patient Allergies/Adverse Reactions: Patient Allergies Allergy/AdvReac Type Severity Reaction Status Date / Time morphine Allergy HIVES Verified 11/25/18 16:08 nitroglycerin Allergy ANAPHYLAXIS Verified 11/25/18 16:08 Home Medications: Home Medication List Medication Instructions Recorded Confirmed Last Taken Type NK [No Home Medications] 01/29/19 01/29/19 Unknown History - History of Present Illness-Resp Nature of Presenting Problem: 33yom presents to ED c/o 3 weeks prod cough with white sputum and SOB x2 days. He denies fever/chills/N/V/diaphoresis/hemoptysis. He also states he stopped taking his BP meds a month ago and has been substituting with marijuana. Quality of Pain: reports: none Severity in ED: reports: mild Onset/Duration: reports: gradual, other (3 weeks ago) Timing: reports: still present Context: reports: recent URI Exposure: reports: unknown cause Cough Quality/Degree: reports: moderate, productive cough (white sputum) Episode Frequency: chronic episodes Modifying Factors: improves with: nothing Associated Symptoms: reports: cough, short of breath Similar Symptoms Previously?: No Recently seen or treated by another doctor?: No Review of Systems - Adult - REVIEW OF SYSTEMS - ADULT Constitutional: reports: no symptoms reported Eyes: reports: no symptoms reported Ears, Nose, Mouth & Throat: reports: no symptoms reported Cardiovascular: reports: no symptoms reported Respiratory: reports: see HPI, cough, shortness of breath Gastrointestinal: reports: no symptoms reported Genitourinary: reports: no symptoms reported Musculoskeletal: reports: no symptoms reported Integumentary: reports: no symptoms reported Neurological: reports: no symptoms reported Psychiatric: reports: no symptoms reported Endocrine: reports: no symptoms reported Hematologic/Lymphatic: reports: no symptoms reported Allergic/Immunologic: reports: no symptoms reported All Other Systems: Reviewed and Negative Past History - Adult - PAST MEDICAL HISTORY-ADULT Review of Records: reports: Old Records Reviewed, Nursing Assessment Review, Medications Reviewed, Social history reviewed & non-contributory. Major Childhood Illnesses: reports: denies history Cardiovascular: reports: CHF, HTN, other (cardiomegaly) Respiratory: reports: denies history Gastrointestinal: reports: denies history Obstetrical/Gynecological: reports: denies history Genitourinary: reports: denies history Musculoskeletal: reports: denies history Neurological: reports: CVA Psychiatric: reports: denies history Endocrine/Immune: reports: denies history Other Conditions: reports: denies history - PRIOR SURGERIES/PROCEDURES Surgical/Procedure History: reports: none - IMMUNIZATION STATUS Childhood Immunizations: See Nurse Assessment Flu Vaccine: See Nurse Assessment - FAMILY HISTORY Family History: reviewed, not pertinent, CVA/TIA, HTN - SOCIAL HISTORY Smoking: cigarettes, other (marijuana) Living Situation: family Physical Exam-General - PHYSICAL EXAM-ADULT Initial Vital Signs Reviewed: Yes - CONSTITUTIONAL General Appearance: appears well, alert, no apparent distress - EYES Eyes: PERRL/EOMI, pink conjunctivae - HEAD, EARS, NOSE, MOUTH & THROAT HENMT: normocephalic/atraumatic, moist mucous membranes, normal ENT inspection - NECK Neck: non-tender, full range of motion, supple, normal inspection - RESPIRATORY Respiratory: chest non-tender, lungs clear, normal breath sounds, no pleuratic chest pain, no respiratory distress, no accessory muscle use - CARDIOVASCULAR Cardiovascular: normal peripheral pulses, regular rate, rhythm, no edema, no gallop, no JVD - GASTROINTESTINAL (ABDOMEN) Abdominal Exam: normal bowel sounds, non tender, soft, no organomegaly - LYMPHATIC Lymphatic: no adenopathy - MUSCULOSKELETAL Back Exam: normal inspection, no CVA tenderness, no vertebral tenderness Extremity: normal range of motion, non-tender, normal gait, normal inspection - SKIN Integumentary: normal color, normal turgor, warm/dry - NEUROLOGIC 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, grossly normal, no motor/sensory deficits - PSYCHIATRIC Psych/Mental Status: normal mood/affect, normal thought content, normal thought process, oriented x 3 - HEART Score HEART Score: History: Moderately Suspicious HEART Score: ECG: Non-Specific Repolarization Disturbance/LBBB/PM HEART Score: Age: < or = 45 Years HEART Score: Risk Factors for Atherosclerotic Disease: > or = 3 Risk Factors or History of Atherosclerotic Disease HEART Score: Troponin: < or = Normal Limit Total HEART Score:: 4 Progress - PLAN OF CARE/RESULTS Progress/Plan/Lab Results: Vital Signs - 8 hr 01/29/19 08:49 01/29/19 10:12 01/29/19 10:34 Temperature 97.8 F Pulse Rate 108 H 102 H Respiratory Rate 21 20 Blood Pressure 212/155 203/180 O2 Sat by Pulse Oximetry 98 98 99 01/29/19 10:49 01/29/19 13:09 Temperature Pulse Rate 102 H 92 H Respiratory Rate 20 24 Blood Pressure 223/167 196/136 O2 Sat by Pulse Oximetry 98 98 Laboratory Results - last 24 hr 01/29/19 01/29/19 01/29/19 09:10 09:10 09:10 WBC 13.45 H RBC 5.81 Hgb 15.6 Hct 47.3 MCV 81.4 MCH 26.9 L MCHC 33.0 RDW Std Deviation 14.8 H Plt Count 204 MPV 10.7 H Immature Gran % (Auto) 0.4 Neut % (Auto) 72.0 Lymph % (Auto) 18.5 L Hernando % (Auto) 4.8 Eos % (Auto) 3.9 Baso % (Auto) 0.4 Immature Gran # (Auto) 0.05 H Neut # (Auto) 9.69 H Lymph # (Auto) 2.49 Hernando # (Auto) 0.65 H Eos # (Auto) 0.52 Baso # (Auto) 0.05 PT INR PTT (Actin FS) Sodium 140 Potassium 3.5 Chloride 105 Carbon Dioxide 22 L Anion Gap 13 BUN 16 Creatinine 1.3 H Estimated GFR/1.73 m2 > 60 BUN/Creatinine Ratio 12 Glucose 151 H Calculated Osmolality 284 Calcium 8.4 L Total Bilirubin 0.89 AST 14 ALT 19 Alkaline Phosphatase 94 Creatine Kinase 151 Troponin T Fgk-M-Zvwnejvoyce Pept Total Protein 6.9 Albumin 4.0 Globulin 2.9 Albumin/Globulin Ratio 1.4 Plasma Lactate Urine Source CLEAN CATCH Urine Color YELLOW Urine Turbidity CLEAR Urine pH 6.0 Ur Specific [place] 1.024 Urine Protein 100 A Ur Glucose (Stick) NEGATIVE Ur Ketones (Stick) NEGATIVE Urine Blood NEGATIVE Urine Nitrite NEGATIVE Urine Bilirubin NEGATIVE Urobilinogen Dipstick NORMAL Urine Leukocytes NEGATIVE Urine WBC (Auto) <10 Urine RBC (Auto) <10 U Epithel Cells (Auto) <10 Urine Bacteria (Auto) NEGATIVE Urine Opiates Screen Ur Oxycodone Screen Ur Methadone, Qual Ur Barbiturates Screen Ur Phencyclidine Scrn Ur Amphetamines Screen U Benzodiazepines Scrn Urine Cocaine Screen U Cannabinoids Screen 10/17/19 10/17/19 10/17/19 09:10 09:10 09:10 WBC RBC Hgb Hct MCV MCH MCHC RDW Std Deviation Plt Count MPV Immature Gran % (Auto) Neut % (Auto) Lymph % (Auto) Hernando % (Auto) Eos % (Auto) Baso % (Auto) Immature Gran # (Auto) Neut # (Auto) Lymph # (Auto) Hernando # (Auto) Eos # (Auto) Baso # (Auto) PT 14.6 INR 1.12 PTT (Actin FS) 30.2 Sodium Potassium Chloride Carbon Dioxide Anion Gap BUN Creatinine Estimated GFR/1.73 m2 BUN/Creatinine Ratio Glucose Calculated Osmolality Calcium Total Bilirubin AST ALT Alkaline Phosphatase Creatine Kinase Troponin T < 0.010 Zsp-F-Fytscngylxb Pept Total Protein Albumin Globulin Albumin/Globulin Ratio Plasma Lactate 0.9 Urine Source Urine Color Urine Turbidity Urine pH Ur Specific [place] Urine Protein Ur Glucose (Stick) Ur Ketones (Stick) Urine Blood Urine Nitrite Urine Bilirubin Urobilinogen Dipstick Urine Leukocytes Urine WBC (Auto) Urine RBC (Auto) U Epithel Cells (Auto) Urine Bacteria (Auto) Urine Opiates Screen Ur Oxycodone Screen Ur Methadone, Qual Ur Barbiturates Screen Ur Phencyclidine Scrn Ur Amphetamines Screen U Benzodiazepines Scrn Urine Cocaine Screen U Cannabinoids Screen 01/29/19 01/29/19 01/29/19 09:10 09:10 12:30 WBC RBC Hgb Hct MCV MCH MCHC RDW Std Deviation Plt Count MPV Immature Gran % (Auto) Neut % (Auto) Lymph % (Auto) Hernando % (Auto) Eos % (Auto) Baso % (Auto) Immature Gran # (Auto) Neut # (Auto) Lymph # (Auto) Hernando # (Auto) Eos # (Auto) Baso # (Auto) PT INR PTT (Actin FS) Sodium Potassium Chloride Carbon Dioxide Anion Gap BUN Creatinine Estimated GFR/1.73 m2 BUN/Creatinine Ratio Glucose Calculated Osmolality Calcium Total Bilirubin AST ALT Alkaline Phosphatase Creatine Kinase Troponin T < 0.010 Wxx-H-Jbvretztpmn Pept 5051 H Total Protein Albumin Globulin Albumin/Globulin Ratio Plasma Lactate Urine Source Urine Color Urine Turbidity Urine pH Ur Specific [place] Urine Protein Ur Glucose (Stick) Ur Ketones (Stick) Urine Blood Urine Nitrite Urine Bilirubin Urobilinogen Dipstick Urine Leukocytes Urine WBC (Auto) Urine RBC (Auto) U Epithel Cells (Auto) Urine Bacteria (Auto) Urine Opiates Screen NONE DETECTED Ur Oxycodone Screen NONE DETECTED Ur Methadone, Qual NONE DETECTED Ur Barbiturates Screen NONE DETECTED Ur Phencyclidine Scrn NONE DETECTED Ur Amphetamines Screen NONE DETECTED U Benzodiazepines Scrn NONE DETECTED Urine Cocaine Screen NONE DETECTED U Cannabinoids Screen PRESUMPTIVE POSITIVE A 01/29/19 12:30 WBC RBC Hgb Hct MCV MCH MCHC RDW Std Deviation Plt Count MPV Immature Gran % (Auto) Neut % (Auto) Lymph % (Auto) Hernando % (Auto) Eos % (Auto) Baso % (Auto) Immature Gran # (Auto) Neut # (Auto) Lymph # (Auto) Hernando # (Auto) Eos # (Auto) Baso # (Auto) PT INR PTT (Actin FS) Sodium Potassium Chloride Carbon Dioxide Anion Gap BUN Creatinine Estimated GFR/1.73 m2 BUN/Creatinine Ratio Glucose Calculated Osmolality Calcium Total Bilirubin AST ALT Alkaline Phosphatase Creatine Kinase Troponin T Rwl-F-Gofdiyjycbr Pept Total Protein Albumin Globulin Albumin/Globulin Ratio Plasma Lactate 1.0 Urine Source Urine Color Urine Turbidity Urine pH Ur Specific [place] Urine Protein Ur Glucose (Stick) Ur Ketones (Stick) Urine Blood Urine Nitrite Urine Bilirubin Urobilinogen Dipstick Urine Leukocytes Urine WBC (Auto) Urine RBC (Auto) U Epithel Cells (Auto) Urine Bacteria (Auto) Urine Opiates Screen Ur Oxycodone Screen Ur Methadone, Qual Ur Barbiturates Screen Ur Phencyclidine Scrn Ur Amphetamines Screen U Benzodiazepines Scrn Urine Cocaine Screen U Cannabinoids Screen Orders Category Date Time Status Admit - [facility] Routine AdmDCTranf 01/29/19 14:08 Active Activity Type ORDERED Care 01/29/19 14:08 Active Cardiac Monitoring DIRECTED Care 01/29/19 09:30 Active Daily Weights 0600 Care 01/29/19 14:08 Active IV Insertion ORDERED Care 01/29/19 09:30 Completed Misc. NRSG Communication Order DIRECTED Care 01/29/19 14:08 Active Notify MD of + Sepsis Screen NOW Care 01/29/19 09:30 Active Notify Physician As Ordered Care 01/29/19 09:30 Active Nursing- MD Consult Request ROUTINE Care 01/29/19 14:08 Active Repeat Vital Signs .Blood Pressure Care 01/29/19 10:32 Active Repeat Vital Signs .Heart Rate Care 01/29/19 10:32 Active Saline Loc DIRECTED Care 01/29/19 14:08 Active Use Oxygen.Protocol ORDERED Care 01/29/19 14:08 Active Weight on Admission ORDERED Care 01/29/19 14:08 Active Z-Document. for Tele Applied ORDERED Care 01/29/19 14:08 Active Physician/Provider Consults Routine Cons 01/29/19 14:08 Ordered Heart Healthy Diet Diet 01/29/19 11:55 Active CHEST-2 VIEWS [RAD] Stat Exams 01/29/19 09:12 Completed CHEST-PORTABLE [RAD] Routine Exams 01/30/19 06:00 Ordered BLOOD CULTURE [BLDCUL] Stat Lab 01/29/19 09:53 Results BNP [PRO B-NATRIURETIC PEPTIDE] Stat Lab 01/29/19 09:10 Completed CBC WITH DIFF [HEME] Stat Lab 01/29/19 09:10 Completed CK PROFILE [SP CHEM] Stat Lab 01/29/19 09:10 Completed COMPREHENSIVE METABOLIC PANEL [CHEM] Stat Lab 01/29/19 09:10 Completed LACTATE, PLASMA [CHEM] Lab 01/29/19 12:30 Completed LACTATE, PLASMA [CHEM] Lab 01/29/19 15:30 Ordered LACTATE, PLASMA [CHEM] Q3H Lab 01/29/19 09:10 Completed MAGNESIUM [CHEM] Routine Lab 01/30/19 06:00 Ordered PRO B-NATRIURETIC PEPTIDE Routine Lab 01/30/19 06:00 Ordered PROTIME WITH INR [COAG] Stat Lab 01/29/19 09:10 Completed PTT [COAG] Stat Lab 01/29/19 09:10 Completed TROPONIN T Stat Lab 01/29/19 09:10 Completed TROPONIN T Stat Lab 01/29/19 12:30 Completed URINALYSIS W/POSS RFLX CULT [URINALYSIS] Stat Lab 01/29/19 09:10 Completed URINE DRUG SCREEN Stat Lab 01/29/19 09:10 Completed 0.9% Sodium Chloride Inj [Ns] 160 ml Med 01/29/19 14:08 Ordered Labetalol 200 mg IV As Directed mls/hr CefTRIAXONE [Rocephin] 2 gm Med 01/29/19 10:32 Discontinued 0.9% Sodium Chloride Inj [Ns] 50 ml IV NOW Clonidine [Catapres] Med 01/29/19 09:33 Discontinued 0.2 mg PO NOW ONE Furosemide [Lasix] Med 01/29/19 11:54 Discontinued 40 mg IV NOW ONE Furosemide [Lasix] Med 01/29/19 18:00 Ordered 40 mg IV Q12H Labetalol Med 01/29/19 14:08 Once 20 mg IV NOW ONE Metoprolol [Lopressor] Med 01/29/19 10:36 Discontinued 5 mg IV NOW ONE Nitroglycerin Med 01/29/19 12:17 Discontinued 0.5 inch TOP NOW ONE Oxygen Device Stat Oth 01/29/19 09:30 Active Telemetry [OM.EQ] Routine Oth 01/29/19 14:08 Active EKG [EKG] Stat Ther 01/29/19 12:17 Draft Transfer/Admit Order [TRANSFER] Routine Transfer 01/29/19 12:57 Completed Result Diagrams: 01/29/19 09:10 01/29/19 09:10 - REASSESSMENT Reassessment #1 Time Reassessed: 12:57 (Spoke [facility] Hospitalist JORDEN, she recommends admit to Dr. Dickey) - XRAY 1 XRAY Study: Chest Impression: See EMR Report ( EXAM: CHEST-2 VIEWS INDICATION: cough TECHNIQUE: 2 views COMPARISON: 11/26/2018 FINDINGS: There are increased interstitial markings in the perihilar regions and lung bases suggesting mild interstitial edema. There is prominent central vasculature indicating pulmonary venous congestion. There is no discrete pleural fluid collection or pneumothorax. There is stable cardiomegaly. IMPRESSION: Cardiomegaly and suggestion of mild pulmonary venous congestion and interstitial edema. Electronically signed by Diego Cordoba 01/29/2019 10:27 AM 01/29/19 1027 Interpreting Physician: Diego Cordoba MD Dictated Date/Time: 01/29/19 1025) Departure - Departure Date of Disposition Decision: 01/29/19 Time of Disposition Decision: 12:56 DIAGNOSIS: Uncontrolled hypertension CHF (congestive heart failure) Qualifiers: Heart failure type: unspecified Heart failure chronicity: acute Qualified Code(s): I50.9 - Heart failure, unspecified Disposition: ADMITTED INPATIENT 09 Certified Medical Emergency: Emergent Condition: Stable - Critical Care Note This patient required my direct & personal management of CC.: No Attestation - Physician/ NAYE Attestation Patient care was provided by Advanced Practice Provider:: Yes Advanced Practice Provider:: Shari Schroeder Advanced Practice Provider documentation review:: The Mid-level provider documentation, treatment plan and medical decision making was reviewed by the physician who agrees with all treatment and medical decision making by the MLP. The physician spent face to face time with patient:: No Advanced Practice Provider documentation review:: Supervising physician onsite and consulted in the evaluation and care of this patient. The physician did not have a face to face encounter with the patient.
[2019-01-29] MEDS ORDERED: CATAPRES PO ONE (09:33)
[2019-01-29 09:36] LABS: URINE SOURCE CLEAN CATCH
[2019-01-29 09:41] LABS: BASO# 0.05 X1000 (0.0-0.2); BASO% 0.4 % (0.0-0.8); EOS# 0.52 X1000 (0.0-0.7); EOS% 3.9 % (0.0-10.0); HEMATOCRIT 47.3 % (42.0-52.0); HEMOGLOBIN 15.6 g/dL (14.0-18.0); IMM GRAN# 0.05 X1000 (0.0-0.04); IMM GRAN% 0.4 % (0.0-0.5); LYMPH# 2.49 X1000 (1.2-3.4); LYMPH% 18.5 % (20.5-51.1); MCH 26.9 PG (27-31); MCV 81.4 FL (81-99); MONO# 0.65 X1000 (0.11-0.59); MONO% 4.8 % (1.7-9.3); MPV 10.7 FL (7.4-10.4); NEUT# 9.69 X1000 (1.4-6.5); PLT 204 X1000 (130-400); RBC 5.81 XMIL (4.7-6.1); RDW 14.8 % (11.5-14.5); WBC 13.45 X1000 (4.8-10.8)
[2019-01-29 09:42] LABS: BILIRUBIN URINE NEGATIVE (NEGATIVE); BLOOD URINE NEGATIVE (NEGATIVE); COLOR YELLOW; GLUCOSE URINE NEGATIVE (NEGATIVE); KETONE URINE NEGATIVE (NEGATIVE); LEUKOCYTES URINE NEGATIVE (NEGATIVE); NITRITE URINE NEGATIVE (NEGATIVE); PROTEIN URINE 100 mg/dL (NEGATIVE); SP GRAVITY URINE 1.024; TURBIDITY URINE CLEAR (CLEAR); UROBILINOGEN URINE NORMAL (NORMAL)
[2019-01-29 09:43] LABS: UR EPITHELIAL CELLS <10 /HPF (<10); URINE BACTERIA NEGATIVE /HPF; URINE RBC <10 /HPF (<10); URINE WBC <10 /HPF (<10)
[2019-01-29 09:58] LABS: INR 1.12; PROTIME 14.6 Seconds (11.0-16.0)
[2019-01-29 09:59] LABS: PTT 30.2 Seconds (22.3-41.8)
[2019-01-29 10:05] LABS: UR AMPHETAMINES QUAL NONE DETECTED (NONE DETECT); UR BARBITUATES QUAL NONE DETECTED (NONE DETECT); UR BENZODIAZEPIN QUAL NONE DETECTED (NONE DETECT); UR CANNABINOIDS QUAL PRESUMPTIVE POSITIVE (NONE DETECT); UR COCAINE QUAL NONE DETECTED (NONE DETECT); UR METHADONE QUAL NONE DETECTED (NONE DETECT); UR OPIATES QUAL NONE DETECTED (NONE DETECT); UR OXYCODONE QUAL NONE DETECTED (NONE DETECT); UR PCP QUAL NONE DETECTED (NONE DETECT)
[2019-01-29 10:26] LABS: AGAP 13; ALB/GLOB RATIO 1.4; ALKALINE PHOSPHATASE 94 U/L (32-122); BUN 16 mg/dL (8-22); CALCIUM 8.4 mg/dL (8.8-10.2); CHLORIDE 105 mmol/L (98-107); CK PROFILE 151 U/L (24-204); COSMO 284; CREATININE 1.3 mg/dL (0.7-1.2); ESTIMATED GFR > 60; GLUCOSE 151 mg/dL (70-104); GOT 14 U/L (10-34); GPT 19 U/L (10-44); POTASSIUM 3.5 mmol/L (3.5-5.1); SODIUM 140 mmol/L (136-145); TCO2 22 mmol/L (25-35); TOTAL BILIRUBIN 0.89 mg/dL (0.20-1.00); TOTAL PROTEIN 6.9 g/dL (6.3-8.3)
--- NOTE | 2019-01-29 10:29 | Diag Imaging Result Doc PS360 ---
EXAM: CHEST-2 VIEWS INDICATION: cough TECHNIQUE: 2 views COMPARISON: 11/26/2018 FINDINGS: There are increased interstitial markings in the perihilar regions and lung bases suggesting mild interstitial edema. There is prominent central vasculature indicating pulmonary venous congestion. There is no discrete pleural fluid collection or pneumothorax. There is stable cardiomegaly. IMPRESSION: Cardiomegaly and suggestion of mild pulmonary venous congestion and interstitial edema. Electronically signed by Diego Cordoba 01/29/2019 10:27 AM
[2019-01-29] MEDS ORDERED: ROCEPHIN 2 GM in NS 50 ML IV ONE (10:32)
[2019-01-29] MEDS ORDERED: LOPRESSOR IV ONE (10:36)
[2019-01-29] MEDS ORDERED: LASIX IV ONE (11:54)
[2019-01-29] MEDS ORDERED: NITROGLYCERIN TOP ONE (12:17)
--- NOTE | 2019-01-29 14:00 | EKG Report ---
Test Performed on : 01/29/2019 1:36:16 PM Test Reason : SOB Blood Pressure : / mmHG Vent. Rate : 087 BPM Atrial Rate : 087 BPM P-R Int : 168 ms QRS Dur : 096 ms QT Int : 412 ms P-R-T Axes : 042 042 161 degrees QTc Int : 495 ms Normal sinus rhythm. Left atrial enlargement T wave abnormality, consider inferolateral ischemia Prolonged QT Abnormal ECG When compared with ECG of 12-NOV-2018 03:11, ST elevation now present in Anterior leads T wave inversion less evident in Inferior leads Unconfirmed Result
[2019-01-29] MEDS ORDERED: LABETALOL 200 MG in NS 160 ML IV SCH (14:08)
[2019-01-29] MEDS ORDERED: LABETALOL IV ONE (14:08)
[2019-01-29 17:09] LABS: ALLEN TEST YES; BE -0.4 mmoll (-3.0-3.0); BLOOD TYPE ARTERIAL; HCO3-(ACT) 24.5 mmoll (20.0-26.0); METHB 0.6 % (0.0-1.5); O2(CT) 21.2 mL/dL (15.0-23.0); O2HB 95.4 % (95.0-99.0); PCO2(98.6) 34 mmHg (35-45); PO2(98.6) 90 mmHg (60-100); SAMPLE BLOOD; SAO2 98.2 % (95.0-100.0); THB 15.8 g/dL (11.5-17.4); pH(98.6) 7.44 (7.35-7.45)
[2019-01-29 17:10] LABS: MODALITY CANNULA
[2019-01-29] MEDS: LASIX IV SCH (17:10)
[2019-01-29] MEDS: NORVASC PO SCH (17:10)
[2019-01-29] MEDS: HYDROCHLOROTHIAZIDE PO SCH (17:10)
[2019-01-29] MEDS: ALDACTONE PO SCH (17:18)
--- NOTE | 2019-01-29 17:31 | HISTORY AND PHYSICAL ---
ADDENDUM REPORT I have seen and examined Mr. Sotomayor today. Mr. Sotomayor is a 33-year-old -[place] male with a history of severe uncontrolled hypertension medically noncompliant. He was actually discharged from here in November,, with a similar presentation. Mr. Sotomayor was also admitted to [facility] in May for a day and was flown to [facility] because of intracerebral hemorrhage from uncontrolled hypertension. This time he comes in because of dyspnea on exertion associated with orthopnea and PND. Upon presenting, he was evaluated in the ER. Initial vitals revealed that his blood pressure was 212/155 with a pulse of 108. This has slowly come down to a systolic of 196-136. Currently, his blood pressure systolic is 187. He also reports feeling slightly better. His physical exam is remarkable for a BMI of 48.8 with very large neck circumference. His chest was clear, a few crackles in the posterior lung [place] for the most part. Cardiovascular was unremarkable. I did not see any edema. ASSESSMENT: 1. Hypertensive emergency on presentation associated with acute diastolic heart failure. Mean blood pressure has been brought down to 25% which is the targeted. We will wait to start him on oral antihypertensive medications. He seems now to be less symptomatic than before, so we are going to transfer him to [facility] and continue with his medications and blood pressure control. 2. Morbid obesity with BMI of 48.8. 3. Suspected obstructive sleep apnea. The patient has been advised to follow up with sleep team to make sure that this condition is officially diagnosed and treated since we think it potentially could be contributing to his current cardiovascular health. 4. 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 5. Recreational drug use (daily marijuana use). The patient has been counseled. Critical time spent 45 minutes cc: Paxton Dickey MD MTDD
--- NOTE | 2019-01-29 17:37 | HISTORY AND PHYSICAL ---
PRIMARY CARE PROVIDER: None. HOSE INSPECTOR AND PATCHER: In [place]. CHIEF COMPLAINT: Shortness of breath, not able lie flat. HISTORY OF PRESENT ILLNESS: Mr. Sotomayor is a 33-year-old male who carries a past medical history of hypertension, morbid obesity, and probable sleep apnea. 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 He was admitted back in mid November for hypertensive crisis complicated with pulmonary edema and pulmonary venous hypertension. He was diuresed and followed by Cardiology. He followed up with a drip box tender in [place] where his mother lives and was told not to take any medications that have been prescribed to him, but told him that he could self medicate with marijuana, although he could not legally tell him to do so. He reports that he smokes 2 joints per day. However, when he woke up this morning and he was too short of breath to lie down, he did not want a smoke any marijuana secondary to the shortness of breath. He came to the ED to be evaluated and was found to be in hypertensive urgency. He was given 1 dose of IV metoprolol, 1 dose of clonidine without any improvement, as well as IV Lasix. He continues to have blood pressures in the 200s over 140s. We will do a labetalol push as well as initiate him on labetalol drip, consult Cardiology, and continue with IV diuresis given his elevated proBNP and pulmonary edema seen on chest x-ray. PAST MEDICAL HISTORY: 1. Hypertension. 2. Pulmonary hypertension. 3. Medical noncompliance. 4. Morbid obesity. 5. Probable sleep apnea. PAST SURGICAL HISTORY: Denies. HOME MEDICATIONS: None. SOCIAL HISTORY: He smokes 2 marijuana joints per day. FAMILY HISTORY: Mother with valvular heart disease and diabetes. ALLERGIES: Morphine and nitroglycerin. They are both anaphylaxis. REVIEW OF SYSTEMS: A 12 point review of systems completely negative except for those mentioned in HPI. PHYSICAL EXAMINATION: VITAL SIGNS: Temperature was 97.8 degrees, heart rate 108, respirations 21, blood pressure 212/155, O2 is 98% on room air. GENERAL: Mr. Sotomayor is a 33-year-old male who is sitting up in the bed in no acute distress. HEENT: Atraumatic, normocephalic. PERRL. NECK: Supple. Trachea midline. CARDIOVASCULAR: S1, S2 appreciated. No murmurs, gallops, or rubs noted. RESPIRATORY: Lung sounds clear bilaterally. Decreased in the bases. GI: Obese, soft, nontender, nondistended. Positive bowel sounds 4 quads. EXTREMITIES: Lower extremities are negative for edema. Bilateral pedal pulses are palpable. NEUROLOGIC: No focal deficits noted. DIAGNOSTIC DATA: Chest x-ray: Cardiomegaly, mild pulmonary venous congestion, and interstitial edema. EKG: Normal sinus rhythm with left atrial enlargement, T-wave abnormality. LABORATORY DATA: White count 13, hemoglobin and hematocrit 15 and 47, platelet count is 204,000. Sodium 140, potassium 3.5, BUN 16, creatinine 1.3, blood glucose is 151. ProBNP is 5,051. Two sets of troponins have been negative. Urinalysis is negative. Toxicology screen positive for cannabinoids. ASSESSMENT AND PLAN: 1. Hypertensive urgency associated pulmonary vascular congestion, elevated proBNP. We will continue with IV diuresis. Initiate him on labetalol drip. Watch him closely in the ICU to not bring his blood pressure down too quick. He does have parameters in the nursing notes to call the MD. 2. Probable obstructive sleep apnea. 3. Acute kidney injury on probable chronic kidney disease. We will watch his kidney function closely. 4. Proteinuria secondary to his uncontrolled hypertension. 5. Leukocytosis. Do not have any source of infection. Continue to monitor. He is afebrile. Does not complain of any cough, fever, chills. 6. Further recommendation to follow physician evaluation, laboratory data, and diagnostic data. Dictated by JORDEN Barrios for Paxton Dickey MD cc: Paxton Dickey MD
[2019-01-29] MEDS ORDERED: TYLENOL PO PRN (19:05)
[2019-01-29] MEDS: TRANDATE PO SCH (20:19)
[2019-01-29] MEDS: COZAAR PO SCH (20:19)
[2019-01-30] MEDS: LASIX IV SCH ×2 (05:00→17:18)
--- NOTE | 2019-01-30 07:12 | Diag Imaging Result Doc PS360 ---
EXAM: CHEST-PORTABLE 01/30/2019 HISTORY: chf TECHNIQUE: AP portable at 0553 COMMENT: The inspiration is suboptimal. The heart size is slightly enlarged. Compared to 01/29/2019 the pulmonary edema which was present in the bases has largely resolved. IMPRESSION: Improved pulmonary edema. Mild cardiomegaly. Electronically signed by Erik Jarrell 01/30/2019 7:09 AM
[2019-01-30] MEDS: HYDROCHLOROTHIAZIDE PO SCH (08:16)
[2019-01-30] MEDS: ALDACTONE PO SCH (08:16)
[2019-01-30] MEDS: TRANDATE PO SCH ×3 (08:16→21:00)
[2019-01-30] MEDS: COZAAR PO SCH ×3 (08:16→21:00)
[2019-01-30] MEDS: NORVASC PO SCH (08:16)
[2019-01-30] MEDS: CATAPRES PO SCH ×3 (09:13→17:18)
--- NOTE | 2019-01-30 12:25 | PROGRESS NOTE ---
DATE: 01/30/2019 SUBJECTIVE: This morning Mr. Sotomayor refers to be doing a lot better. He was sleeping earlier when I came to see him. When I came back later on around 11, he was up. He said he felt a lot better. He is not as short of breath as before. OBJECTIVE: Current vitals: Blood pressure is 161/103, pulse of 83, respiration is 18, temperature 97.6 degrees. General exam: Mr. Sotomayor is a 33-year-old, morbidly obese, gentleman. He is in bed, no distress. HEENT: Mucosa is pink and moist. Anicteric. Acyanotic. Neck: Neck is supple, short. Chest: Good air entry bilateral. There were no crepitations, no rhonchi. Cardiovascular: Regular rate and rhythm. No murmurs, no rubs, no gallops. GI: Abdomen is soft. It is remarkably distended, but nontender. Bowel sounds present. Extremities: No pedal edema. 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 There is no focal neurological deficit. Intake/output: Urine output 250. Unsure if that has been documented all along. LABORATORY DATA: None from today, except the pro B which is down to 2181. IMAGING STUDY: A chest x-ray this morning shows improved pulmonary edema, mild cardiomegaly. ASSESSMENT: 1. Hypertensive emergency on presentation associated with acute diastolic heart failure with acute pulmonary edema, improved. 2. Severe uncontrolled hypertension. The patient's medications have been uptitrated. We are going to continue to observe him today. 3. Morbid obesity with body mass index of 48.8, weight loss advised. 4. Suspected obstructive sleep apnea. The patient was remarkably snoring early on when I came to see him. He has been advised to follow up with sleep studies. 5. 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 We will continue addressing the blood pressure issues. 6. Recreational drug use (marijuana). The patient has been counseled. PLAN: In general, I think Mr. Sotomayor is doing well. He was able to lie pretty flat to sleep this morning. His shortness of breath has significantly improved. His blood pressure is also getting better. We have made some changes to his current regimen. We are going to observe him today to get a better blood pressure control, and hopefully discharge him tomorrow. cc: Paxton Dickey MD
[2019-01-31] MEDS: LASIX IV SCH (05:10)
--- NOTE | 2019-01-31 06:36 | Diag Imaging Result Doc PS360 ---
EXAM: CHEST-PORTABLE HISTORY: dyspnea TECHNIQUE: Chest single view COMPARISON: 01/30/2019 FINDINGS: There are infiltrates or atelectasis in the right lung base on the current exam. The heart remains enlarged. Mild pulmonary edema. Questionable tiny right effusion. IMPRESSION: Mild interval worsening Electronically signed by Deuce Garcia 01/31/2019 6:34 AM
[2019-01-31 06:51] LABS: AGAP 15; ALBUMIN 3.6 g/dL (3.5-5.0); BUN 18 mg/dL (8-22); CHLORIDE 101 mmol/L (98-107); COSMO 280; CREATININE 1.5 mg/dL (0.7-1.2); ESTIMATED GFR > 60; GLUCOSE 104 mg/dL (70-104); PHOSPHORUS 4.1 mg/dL (2.7-4.5); POTASSIUM 3.5 mmol/L (3.5-5.1); SODIUM 139 mmol/L (136-145); TCO2 23 mmol/L (25-35)
[2019-01-31] MEDS: COZAAR PO SCH (08:31)
[2019-01-31] MEDS: HYDROCHLOROTHIAZIDE PO SCH (08:31)
[2019-01-31] MEDS: NORVASC PO SCH (08:31)
[2019-01-31] MEDS: TRANDATE PO SCH (08:32)
[2019-01-31] MEDS: CATAPRES PO SCH ×2 (08:32→13:34)
[2019-01-31] MEDS: ALDACTONE PO SCH (08:32)
[2019-01-31 11:06] VITALS: BP 128/77
--- NOTE | 2019-01-31 20:31 | DISCHARGE SUMMARY ---
ADMISSION DATE: 01/29/2019 DISCHARGE DATE: 01/31/2019 DISPOSITION: Home. FOLLOWUP: Will be 1. Dr. Quinones. 2. Dr. Adams. 3. He will follow up with Dr. Wells because of CKD. CONSULTATION: None. IMAGING STUDIES: Of significance. 1. A chest x-ray was done on admission which suggested cardiomegaly and mild pulmonary venous congestion and interstitial edema. A repeat chest x-ray this morning shows interval improvement. 2. Patient's echocardiogram from September of this year did show an ejection fraction of 60% with severe concentric hypertrophic cardiomyopathy. ADMISSION DIAGNOSIS: 1. Hypertensive urgency. Probable obstructive sleep apnea. 1. Acute on chronic kidney disease. DIAGNOSIS AT THE TIME OF DISCHARGE: 1. Hypertensive emergency on presentation associated with acute diastolic heart failure with acute pulmonary edema improved. 2. Severe uncontrolled hypertension. 3. Morbid obesity with body mass index of 48.8. 4. Suspected obstructive sleep apnea. Patient has been advised to follow up with Dr. Quinones. 5. 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 Patient will follow up with Cardiology. Recreational marijuana use. Patient has been counseled. 1. Medication noncompliance, patient has been advised. 2. Chronic kidney disease stage 3A, patient will follow up with Dr. Wells. DISCHARGE MEDICATIONS: 1. Amlodipine 10 mg p.o. daily. 2. Klonopin 0.1 three times per day. 3. Losartan 100 mg b.i.d. 4. Hydrochlorothiazide 12.5 p.o. daily. 5. Spironolactone 25 mg p.o. daily. 6. Labetalol 400 p.o. b.i.d. PRESENTING COMPLAINT: Shortness of breath. HISTORY OF PRESENT COMPLAINT: Mr. Sotomayor 33-year-old gentleman with a history of morbid obesity, hypertension, possible sleep apnea, previous hemorrhagic stroke, came to emergency department because of difficulty breathing. Upon presentation Mr. Sotomayor was evaluated was found to have blood pressure was 212/155. A chest x-ray did reveal some pulmonary congestion. His pro B was also elevated to 5051. He was thought to be in acute diastolic heart failure as a result of severe uncontrolled hypertension was admitted for further medical care. HOSPITAL COURSE: Mr. Sotomayor was initially thought to be admitted to the ICU. However the blood pressure slightly improved with the ER treatment so he was admitted to [facility]. He was started on oral antihypertensive medications which was gradually titrated for a better pressure control. During the hospital course Mr. Sotomayor shortness of breath remarkably improved, subsequent chest x-ray showed improvement. His pro B has also improved to 522. This morning he feels a lot better. His current vitals blood pressure is down to 128/77, his pulse is 78, respiration is 18, temperature is 97.3 degrees. Mr. Sotomayor has been on the current antihypertensive regimen for more than 24 hours so we think is fairly stable. He is tolerating the regimen and he can be discharged to follow up with outpatient care. Mr. Sotomayor currently does not have a primary care doctor so he is going to be given a list of providers in the community that he can easily follow up with. He is also going to follow up with Cardiology because of his severe concentric hypertrophy and will also follow with Dr. Quinones for obstructive sleep apnea outpatient evaluation and management. All the discharge instructions have been discussed with Mr. Sotomayor. Specifically we did stress on medication compliance and cessation of recreational drug use. Mr. Sotomayor voices understanding for the recommendations. TIME SPENT: 40 minutes. cc: MD Dr. Stacie Avila
== END 2019-01-31 14:14 | disposition home or self-care (01) | DRG 304 ==
LOC: ED 08:43 → EDIPHOLD 14:01 → ICU 15:27 → 2N 15:57
PROVIDERS: ATTEND Internal Medicine

== ENCOUNTER 2019-02-17 20:19 | Inpatient (IN) ==
--- NOTE | 2019-02-17 23:35 | EKG Report ---
Test Performed on : 02/17/2019 8:53:32 PM Test Reason : SOB Blood Pressure : / mmHG Vent. Rate : 107 BPM Atrial Rate : 107 BPM P-R Int : 154 ms QRS Dur : 092 ms QT Int : 374 ms P-R-T Axes : 063 022 137 degrees QTc Int : 499 ms Sinus tachycardia. Possible Left atrial enlargement T wave abnormality, consider lateral ischemia Abnormal ECG When compared with ECG of 29-JAN-2019 13:36, (Unconfirmed) No significant change was found Unconfirmed Result
[2019-02-18] MEDS ORDERED: APRESOLINE IV ONE ×2 (00:20→04:05)
[2019-02-18] MEDS ORDERED: LASIX IV ONE (00:20)
[2019-02-18] MEDS ORDERED: DILAUDID IM STA (00:31)
[2019-02-18] MEDS ORDERED: CATAPRES PO ONE ×2 (00:31→02:06)
[2019-02-18 00:59] LABS: BASO# 0.04 X1000 (0.0-0.2); BASO% 0.3 % (0.0-0.8); EOS# 0.55 X1000 (0.0-0.7); EOS% 3.9 % (0.0-10.0); HEMATOCRIT 43.6 % (42.0-52.0); HEMOGLOBIN 14.3 g/dL (14.0-18.0); IMM GRAN# 0.03 X1000 (0.0-0.04); IMM GRAN% 0.2 % (0.0-0.5); LYMPH# 2.49 X1000 (1.2-3.4); LYMPH% 17.7 % (20.5-51.1); MCH 26.5 PG (27-31); MCHC 32.8 g/dL (33-37); MCV 80.9 FL (81-99); MONO# 0.69 X1000 (0.11-0.59); MONO% 4.9 % (1.7-9.3); MPV 11.2 FL (7.4-10.4); PLT 238 X1000 (130-400); RBC 5.39 XMIL (4.7-6.1); RDW 14.6 % (11.5-14.5)
[2019-02-18 01:03] LABS: ALLEN TEST YES; BE 0.2 mmoll (-3.0-3.0); BLOOD TYPE ARTERIAL; HCO3-(ACT) 24.9 mmoll (20.0-26.0); METHB 0.8 % (0.0-1.5); O2(CT) 20.3 mL/dL (15.0-23.0); O2HB 93.1 % (95.0-99.0); PCO2(98.6) 35 mmHg (35-45); PO2(98.6) 70 mmHg (60-100); SAMPLE BLOOD; SAO2 96.6 % (95.0-100.0); THB 15.5 g/dL (11.5-17.4); pH(98.6) 7.44 (7.35-7.45)
[2019-02-18 01:04] LABS: MODALITY ROOM AIR
[2019-02-18 01:06] LABS: INR 1.12; PROTIME 14.5 Seconds (11.0-16.0)
[2019-02-18 01:07] LABS: PTT 31.4 Seconds (22.3-41.8)
[2019-02-18 01:30] LABS: BILIRUBIN URINE NEGATIVE (NEGATIVE); BLOOD URINE NEGATIVE (NEGATIVE); COLOR YELLOW; GLUCOSE URINE NEGATIVE (NEGATIVE); KETONE URINE NEGATIVE (NEGATIVE); LEUKOCYTES URINE NEGATIVE (NEGATIVE); NITRITE URINE NEGATIVE (NEGATIVE); PROTEIN URINE 50 mg/dL (NEGATIVE); SP GRAVITY URINE 1.024; TURBIDITY URINE CLEAR (CLEAR); URINE SOURCE CLEAN CATCH; UROBILINOGEN URINE 2 mg/dL (NORMAL)
[2019-02-18 01:31] LABS: ALB/GLOB RATIO 1.3; ALBUMIN 3.8 g/dL (3.5-5.0); BUN 14 mg/dL (8-22); CALCIUM 8.3 mg/dL (8.8-10.2); CHLORIDE 102 mmol/L (98-107); GOT 21 U/L (10-34); GPT 29 U/L (10-44); POTASSIUM 3.8 mmol/L (3.5-5.1); SODIUM 136 mmol/L (136-145); TOTAL PROTEIN 6.7 g/dL (6.3-8.3)
[2019-02-18 01:32] LABS: UR EPITHELIAL CELLS <10 /HPF (<10); URINE BACTERIA NEGATIVE /HPF; URINE RBC <10 /HPF (<10); URINE WBC <10 /HPF (<10)
[2019-02-18 01:47] LABS: UR AMPHETAMINES QUAL NONE DETECTED (NONE DETECT); UR BARBITUATES QUAL NONE DETECTED (NONE DETECT); UR BENZODIAZEPIN QUAL NONE DETECTED (NONE DETECT); UR CANNABINOIDS QUAL PRESUMPTIVE POSITIVE (NONE DETECT); UR COCAINE QUAL NONE DETECTED (NONE DETECT); UR METHADONE QUAL NONE DETECTED (NONE DETECT); UR OPIATES QUAL NONE DETECTED (NONE DETECT); UR OXYCODONE QUAL NONE DETECTED (NONE DETECT); UR PCP QUAL NONE DETECTED (NONE DETECT)
[2019-02-18 01:50] LABS: ALKALINE PHOSPHATASE 87 U/L (32-122); CREATININE 1.5 mg/dL (0.7-1.2); GLUCOSE 91 mg/dL (70-104); TCO2 25 mmol/L (25-35); TOTAL BILIRUBIN 0.86 mg/dL (0.20-1.00)
[2019-02-18 01:53] LABS: AGAP 9
[2019-02-18 01:55] LABS: COSMO 271
[2019-02-18] MEDS ORDERED: ZOFRAN IV ONE (02:06)
--- NOTE | 2019-02-18 04:03 | PROVIDER DOCUMENTATION ---
This chart was entered by Keri Crandall Scribe, acting as scribe for Kobi Orozco MD. HPI-Cardiac General - General Chief Complaint: B/P Problems Stated Complaint: SOB/HIGH BP/HEADACHE Time Seen by Provider: 02/18/19 00:11 Source: patient Allergies/Adverse Reactions: Patient Allergies Allergy/AdvReac Type Severity Reaction Status Date / Time morphine Allergy HIVES Verified 11/25/18 16:08 nitroglycerin Allergy ANAPHYLAXIS Verified 11/25/18 16:08 Home Medications: Home Medication List Medication Instructions Recorded Confirmed Last Taken Type Amlodipine [Norvasc] 10 mg PO DAILY 01/29/19 01/29/19 Unknown History Amlodipine [Norvasc] 10 mg PO DAILY #120 tab 01/31/19 Unknown Rx Clonidine [Catapres] 0.1 mg PO TID #180 tab 01/31/19 Unknown Rx Hydrochlorothiazide 12.5 mg PO DAILY #120 tab 01/31/19 Unknown Rx Labetalol [Trandate] 400 mg PO BID #180 tab 01/31/19 Unknown Rx Losartan [Cozaar] 100 mg PO BID #120 tab 01/31/19 Unknown Rx Spironolactone [Aldactone] 25 mg PO DAILY #120 tab 01/31/19 Unknown Rx - History of Present Illness-Cardiac Nature of Presenting Problem: pt is a 33 yr old male presenting with 3 day complaint of elevated blood pressure. pt reports today pt began having headache, chest pain and shortness of breath. pt admits hx of CHF, HTN. pt reports no relief with Clonidine, HCTZ and norvasc. Location: reports: central Quality of Pain: reports: dull Severity in ED: mild Onset/Duration: this afternoon Timing: still present Context/Activities at Onset: reports: light activity Modifying Factors: improves with: other medication (norvasc,) Palpitation Quality: N/A History of arrythmia: reports: none Recent use of:: reports: no stimulants Nitro Today/Relief: reports: no nitro taken today Aspirin Treatment Today: reports: no aspirin today Associated Symptoms: reports: edema, headache, shortness of breath. denies: dizziness, nausea, vomiting Similar Symptoms Previously?: Yes Recently Seen Here or By Another Healthcare Provider: Yes Review of Systems - Adult - REVIEW OF SYSTEMS - ADULT Constitutional: denies: fever, fatique Eyes: denies: blurred vision, double vision Ears, Nose, Mouth & Throat: reports: no symptoms reported Cardiovascular: reports: chest pain, edema. denies: palpitations, syncope Respiratory: reports: shortness of breath Gastrointestinal: denies: nausea, vomiting Genitourinary: reports: no symptoms reported Musculoskeletal: denies: back pain, neck pain Integumentary: reports: no symptoms reported Neurological: reports: headache/migraines. denies: dizziness/vertigo, syncope Psychiatric: reports: no symptoms reported Endocrine: reports: no symptoms reported Hematologic/Lymphatic: reports: no symptoms reported Allergic/Immunologic: reports: no symptoms reported All Other Systems: Reviewed and Negative Past History - Adult - PAST MEDICAL HISTORY-ADULT Review of Records: reports: Old Records Reviewed, Nursing Assessment Review, Medications Reviewed, Social history reviewed & non-contributory. Major Childhood Illnesses: reports: denies history Cardiovascular: reports: CHF, HTN, other (cardiomegaly) Respiratory: reports: denies history Gastrointestinal: reports: denies history Obstetrical/Gynecological: reports: denies history Genitourinary: reports: denies history Musculoskeletal: reports: denies history Neurological: reports: CVA Psychiatric: reports: denies history Endocrine/Immune: reports: denies history Other Conditions: reports: denies history - PRIOR SURGERIES/PROCEDURES Surgical/Procedure History: reports: none - IMMUNIZATION STATUS Childhood Immunizations: See Nurse Assessment Flu Vaccine: See Nurse Assessment - FAMILY HISTORY Family History: reviewed, not pertinent, CVA/TIA, HTN - SOCIAL HISTORY Smoking: cigarettes Provider spent 3-5 mins advising pt. on dangers of tobacco.: Discussed manners to quit use, and f/u contacts for add'l counseling. Physical Exam-General - PHYSICAL EXAM-ADULT Initial Vital Signs Reviewed: Yes - CONSTITUTIONAL General Appearance: alert, no apparent distress, obese - EYES Eyes: PERRL/EOMI - HEAD, EARS, NOSE, MOUTH & THROAT HENMT: normocephalic/atraumatic, moist mucous membranes, normal ENT inspection - NECK Neck: non-tender, full range of motion, supple, normal inspection - RESPIRATORY Respiratory: chest non-tender, lungs clear, normal breath sounds, no respiratory distress, no accessory muscle use - CARDIOVASCULAR Cardiovascular: normal peripheral pulses, tachycardia, gallop/S3. negative: no edema (bilateral pitting edema) - GASTROINTESTINAL (ABDOMEN) Abdominal Exam: non tender, soft - LYMPHATIC Lymphatic: no adenopathy - MUSCULOSKELETAL Back Exam: normal inspection, no CVA tenderness, no vertebral tenderness Extremity: normal range of motion, non-tender, normal gait, normal inspection - SKIN Integumentary: normal color, normal turgor, warm/dry - NEUROLOGIC Neurologic: grossly normal, no motor/sensory deficits - PSYCHIATRIC Psych/Mental Status: normal mood/affect, normal thought content, normal thought process, oriented x 3 - HEART Score HEART Score: History: Slightly Suspicious HEART Score: ECG: Normal HEART Score: Age: < or = 45 Years HEART Score: Risk Factors for Atherosclerotic Disease: 1 or 2 Risk Factors HEART Score: Troponin: < or = Normal Limit Total HEART Score:: 1 Progress - PLAN OF CARE/RESULTS Progress/Plan/Lab Results: Vital Signs - 8 hr 02/17/19 20:37 Temperature 98.4 F Pulse Rate 108 H Respiratory Rate 18 Blood Pressure 235/153 O2 Sat by Pulse Oximetry 97 Laboratory Results - last 24 hr 02/17/19 02/17/19 02/17/19 21:02 21:02 21:02 WBC 14.10 H RBC 5.39 Hgb 14.3 Hct 43.6 MCV 80.9 L MCH 26.5 L MCHC 32.8 L RDW Std Deviation 14.6 H Plt Count 238 MPV 11.2 H Immature Gran % (Auto) 0.2 Neut % (Auto) 73.0 Lymph % (Auto) 17.7 L [place] % (Auto) 4.9 Eos % (Auto) 3.9 Baso % (Auto) 0.3 Immature Gran # (Auto) 0.03 Neut # (Auto) 10.30 H Lymph # (Auto) 2.49 [place] # (Auto) 0.69 H Eos # (Auto) 0.55 Baso # (Auto) 0.04 PT INR PTT (Actin FS) D-Dimer, Quantitative 0.60 H Specimen Type Sample Site pH pCO2 pO2 HCO3 Base Excess Oxyhemoglobin ABG O2 Sat (Calculated) ABG O2 Saturation ABG Carboxyhemoglobin ABG Methemoglobin Kiran Test A-a O2 Difference Total Hemoglobin Lactate Blood Gas Modality FiO2 % Sodium 136 Potassium 3.8 Chloride 102 Carbon Dioxide 25 Anion Gap 9 BUN 14 Creatinine 1.5 H BUN/Creatinine Ratio 9 Glucose 91 Calculated Osmolality 271 Calcium 8.3 L Magnesium 2.0 Total Bilirubin 0.86 AST 21 ALT 29 Alkaline Phosphatase 87 Troponin T Ofg-W-Toqcsfyqgep Pept Total Protein 6.7 Albumin 3.8 Globulin 2.9 Albumin/Globulin Ratio 1.3 Urine Source Urine Color Urine Turbidity Urine pH Ur Specific [place] Urine Protein Ur Glucose (Stick) Ur Ketones (Stick) Urine Blood Urine Nitrite Urine Bilirubin Urobilinogen Dipstick Urine Leukocytes Urine WBC (Auto) Urine RBC (Auto) U Epithel Cells (Auto) Urine Bacteria (Auto) Urine Opiates Screen Ur Oxycodone Screen Ur Methadone, Qual Ur Barbiturates Screen Ur Phencyclidine Scrn Ur Amphetamines Screen U Benzodiazepines Scrn Urine Cocaine Screen U Cannabinoids Screen 02/17/19 02/17/19 02/17/19 21:02 21:02 21:02 WBC RBC Hgb Hct MCV MCH MCHC RDW Std Deviation Plt Count MPV Immature Gran % (Auto) Neut % (Auto) Lymph % (Auto) [place] % (Auto) Eos % (Auto) Baso % (Auto) Immature Gran # (Auto) Neut # (Auto) Lymph # (Auto) [place] # (Auto) Eos # (Auto) Baso # (Auto) PT 14.5 INR 1.12 PTT (Actin FS) 31.4 D-Dimer, Quantitative Specimen Type Sample Site pH pCO2 pO2 HCO3 Base Excess Oxyhemoglobin ABG O2 Sat (Calculated) ABG O2 Saturation ABG Carboxyhemoglobin ABG Methemoglobin Kiran Test A-a O2 Difference Total Hemoglobin Lactate Blood Gas Modality FiO2 % Sodium Potassium Chloride Carbon Dioxide Anion Gap BUN Creatinine BUN/Creatinine Ratio Glucose Calculated Osmolality Calcium Magnesium Total Bilirubin AST ALT Alkaline Phosphatase Troponin T 0.015 Elx-D-Deezhuctgrq Pept 4129 H Total Protein Albumin Globulin Albumin/Globulin Ratio Urine Source Urine Color Urine Turbidity Urine pH Ur Specific [place] Urine Protein Ur Glucose (Stick) Ur Ketones (Stick) Urine Blood Urine Nitrite Urine Bilirubin Urobilinogen Dipstick Urine Leukocytes Urine WBC (Auto) Urine RBC (Auto) U Epithel Cells (Auto) Urine Bacteria (Auto) Urine Opiates Screen Ur Oxycodone Screen Ur Methadone, Qual Ur Barbiturates Screen Ur Phencyclidine Scrn Ur Amphetamines Screen U Benzodiazepines Scrn Urine Cocaine Screen U Cannabinoids Screen 02/18/19 02/18/19 02/18/19 00:28 01:15 01:17 WBC RBC Hgb Hct MCV MCH MCHC RDW Std Deviation Plt Count MPV Immature Gran % (Auto) Neut % (Auto) Lymph % (Auto) [place] % (Auto) Eos % (Auto) Baso % (Auto) Immature Gran # (Auto) Neut # (Auto) Lymph # (Auto) [place] # (Auto) Eos # (Auto) Baso # (Auto) PT INR PTT (Actin FS) D-Dimer, Quantitative Specimen Type ARTERIAL Sample Site R RADIAL pH 7.44 pCO2 35 pO2 70 HCO3 24.9 Base Excess 0.2 Oxyhemoglobin 93.1 L ABG O2 Sat (Calculated) 20.3 ABG O2 Saturation 96.6 ABG Carboxyhemoglobin 2.80 H ABG Methemoglobin 0.8 Kiran Test YES A-a O2 Difference 36.0 Total Hemoglobin 15.5 Lactate 0.90 Blood Gas Modality ROOM AIR FiO2 % 21.0 Sodium Potassium Chloride Carbon Dioxide Anion Gap BUN Creatinine BUN/Creatinine Ratio Glucose Calculated Osmolality Calcium Magnesium Total Bilirubin AST ALT Alkaline Phosphatase Troponin T Pqr-Z-Ggnvthexmwa Pept Total Protein Albumin Globulin Albumin/Globulin Ratio Urine Source CLEAN CATCH Urine Color YELLOW Urine Turbidity CLEAR Urine pH 6.0 Ur Specific [place] 1.024 Urine Protein 50 A Ur Glucose (Stick) NEGATIVE Ur Ketones (Stick) NEGATIVE Urine Blood NEGATIVE Urine Nitrite NEGATIVE Urine Bilirubin NEGATIVE Urobilinogen Dipstick 2 A Urine Leukocytes NEGATIVE Urine WBC (Auto) <10 Urine RBC (Auto) <10 U Epithel Cells (Auto) <10 Urine Bacteria (Auto) NEGATIVE Urine Opiates Screen NONE DETECTED Ur Oxycodone Screen NONE DETECTED Ur Methadone, Qual NONE DETECTED Ur Barbiturates Screen NONE DETECTED Ur Phencyclidine Scrn NONE DETECTED Ur Amphetamines Screen NONE DETECTED U Benzodiazepines Scrn NONE DETECTED Urine Cocaine Screen NONE DETECTED U Cannabinoids Screen PRESUMPTIVE POSITIVE A Orders Category Date Time Status Cardiac Monitoring DIRECTED Care 02/18/19 00:21 Active Saline Loc NOW Care 02/18/19 00:21 Active CHEST-2 VIEWS [RAD] Stat Exams 02/18/19 00:[address] ANGIOGRM PULMONARY ARTERIES [CT] Stat Exams 02/18/19 02:34 Taken ABG [RESP] Routine Lab 02/18/19 00:28 Completed BLOOD CULTURE [BLDCUL] Stat Lab 02/18/19 02:34 Ordered CBC WITH ELECTRONIC DIFF [HEME] Stat Lab 02/18/19 00:47 Completed COMPREHENSIVE METABOLIC PANEL [CHEM] Stat Lab 02/18/19 00:47 Completed D-DIMER [COAG] Stat Lab 02/18/19 00:28 Completed MAGNESIUM [CHEM] Stat Lab 02/18/19 00:47 Completed PRO B-NATRIURETIC PEPTIDE Stat Lab 02/18/19 00:47 Completed PROTIME WITH INR [COAG] Stat Lab 02/18/19 00:47 Completed PTT [COAG] Stat Lab 02/18/19 00:47 Completed TROPONIN T Stat Lab 02/18/19 00:47 Completed URINALYSIS W/POSS RFLX CULT [URINALYSIS] Stat Lab 02/18/19 01:15 Completed URINE DRUG SCREEN Stat Lab 02/18/19 01:17 Completed Clonidine [Catapres] Med 02/18/19 00:31 Discontinued 0.2 mg PO NOW ONE Clonidine [Catapres] Med 02/18/19 02:06 Discontinued 0.2 mg PO NOW ONE Furosemide [Lasix] Med 02/18/19 00:20 Discontinued 40 mg IV NOW ONE Hydralazine [Apresoline] Med 02/18/19 00:20 Discontinued 20 mg IV NOW ONE Hydromorphone [Dilaudid] Med 02/18/19 00:31 Discontinued 1 mg IM STAT STA Ondansetron [Zofran] Med 02/18/19 02:06 Discontinued 4 mg IV NOW ONE EKG [EKG] Stat Ther 02/17/19 20:49 Draft Result Diagrams: 02/17/19 21:02 02/17/19 21:02 - EKG 1 Time of EKG reading by physician:: 21:10 EKG Read and Signed by:: Kobi Orozco EKG Interpretation (*Must complete 3 of following elements*): Abnormal (poss LAE , t wave abnormality-consider lateral ischemia) Rate: 107 Rhythm: sinus tachycardia [place]: normal QRS: LVH HI Interval: normal - CT/MRI 1 CT Study: Angiogram Impression: See EMR Report (NO PTE,) Departure - Departure Date of Disposition Decision: 02/18/19 Time of Disposition Decision: 04:01 DIAGNOSIS: Hypertensive emergency, Uncontrolled hypertension, Elevated d-dimer CHF (congestive heart failure) Qualifiers: Heart failure type: unspecified Heart failure chronicity: acute on chronic Qualified Code(s): I50.9 - Heart failure, unspecified Fluid overload Qualifiers: Hypervolemia type: unspecified Qualified Code(s): E87.70 - Fluid overload, unspecified Leukocytosis, unspecified Qualifiers: Leukocytosis type: unspecified Qualified Code(s): D72.829 - Elevated white blood cell count, unspecified Pulmonary edema Qualifiers: Chronicity: acute Qualified Code(s): J81.0 - Acute pulmonary edema Disposition: ADMITTED INPATIENT 09 Certified Medical Emergency: Emergent Condition: Fair - Critical Care Note This patient required my direct & personal management of CC.: No Attestation - Physician/ NAYE Attestation Patient care was provided by Advanced Practice Provider:: No The physician spent face to face time with patient:: Yes Advanced Practice Provider documentation review:: Supervising physician onsite and consulted in the evaluation and care of this patient. The physician did have a face to face encounter with the patient. This chart was documented by the indicated scribe, (Keri Crandall Scribe) and accurately reflects the services I performed and decisions made by me, Kobi Mcpherson MD, as attested by the provider's signature.
[2019-02-18] MEDS ORDERED: TYLENOL PO PRN (06:51)
[2019-02-18] MEDS ORDERED: ASPIRIN PO ONE (07:11)
--- NOTE | 2019-02-18 07:15 | Diag Imaging Result Doc PS360 ---
EXAM: CT ANGIOGRM PULMONARY ARTERIES 02/18/2019 HISTORY: difficulty breathing, left arm swollen TECHNIQUE: This exam was performed using automated exposure control, adjustment of mA or kV according to patient size, and/or use of iterative reconstruction technique. COMMENT: 3-D MIPS were performed. The current study is compared with the previous examination of 12/20/2017. Contrast opacification of the pulmonary arteries is suboptimal particularly distally. There are no definite filling defects. The aorta is normal in caliber and there is no evidence of dissection. There is apparent hypertrophy of the left ventricle. This was also the case on the previous study. The possibility of a subarterial VSD cannot be excluded. Further evaluation with echocardiography may be desirable. There are bilateral small pleural effusions, more so on the right than the left. There are minimal patchy groundglass and pleural-based opacities bilaterally which may indicate mild pulmonary edema. There are calcified granulomata in the left upper lobe. The pulmonary edema is improved since the previous study. There are also small pleural effusions previously. There is no evidence of acute bony abnormality. IMPRESSION: No evidence of pulmonary emboli, however contrast opacification of the pulmonary arteries is suboptimal. The possibility of a VSD cannot be excluded. Marked muscular hypertrophy of the left ventricle. Bilateral pleural effusions and mild pulmonary edema. Electronically signed by Erik aJrrell 02/18/2019 7:12 AM
--- NOTE | 2019-02-18 07:58 | EKG Report ---
Test Performed on : 02/18/2019 07:52:33 AM Test Reason : CHF Exacerbation, Hypertensive Urgency Blood Pressure : / mmHG Vent. Rate : 095 BPM Atrial Rate : 095 BPM P-R Int : 164 ms QRS Dur : 094 ms QT Int : 408 ms P-R-T Axes : 067 018 168 degrees QTc Int : 512 ms Normal sinus rhythm. Possible Left atrial enlargement T wave abnormality, consider lateral ischemia Prolonged QT Abnormal ECG When compared with ECG of 17-FEB-2019 20:53, (Unconfirmed) No significant change was found Unconfirmed Result
--- NOTE | 2019-02-18 07:59 | Diag Imaging Result Doc PS360 ---
EXAM: CHEST-2 VIEWS 02/18/2019 HISTORY: short of breath TECHNIQUE: PA and lateral chest COMMENT: There is cardiomegaly. There is increased interstitial markings. Compared to 01/31/2019 the opacity in the right costophrenic sulcus has improved and there is less atelectasis in the lingula. IMPRESSION: Mild pulmonary edema. Cardiomegaly. Electronically signed by Erik Jarrell 02/18/2019 7:57 AM
[2019-02-18] MEDS ORDERED: ZOFRAN IV PRN (08:30)
--- NOTE | 2019-02-18 08:32 | HISTORY AND PHYSICAL ---
PRIMARY CARE PROVIDER: Dr. Tucker. CHIEF COMPLAINT: Elevated blood pressure, shortness of breath, and chest pain. HISTORY OF PRESENT ILLNESS: Mr. Sotomayor is a 33-year-old, male who has a history of severe hypertension, hypertensive cardiovascular disease with left ventricular hypertrophy and left ventricular diastolic dysfunction, hypertensive chronic kidney disease, suspected obstructive sleep apnea, and history of hemorrhagic stroke. The patient states that for approximately a little over a week that he has had progressively worsening symptoms. He states that he has had worsening swelling in his extremities. He also reports orthopnea, paroxysmal nocturnal dyspnea, worsening shortness of breath. He also reports that his blood pressure has been elevated for approximately the same time, about a week. He stated that it has been running consistently in the 230s to 240s systolic range, over like 160 to 170 diastolic range. He did report that he has been taking all of his medications as prescribed. He has not missed any doses and that he is not out of anything. He also reports that they have not made any medication changes since he was discharged at the end of January. He did report that he had been having some rectal bleeding. He denied any known history of hemorrhoids. He also denied any [id number] use of aspirin, ibuprofen, NSAIDs, or BC Powders. He stated the rectal bleeding was bright red. He also has been reporting a headache. He denies any dizziness or feeling lightheaded. He has been reporting chest pain as well. He denies any abdominal pain, nausea, vomiting, or diarrhea. He denied any dysuria. Other than the swelling in his extremities, he denies any other pain, numbness, or tingling in extremities. Upon evaluation in the ER, the patient's initial vital signs upon arrival were temperature 98.4 degrees, heart rate 108, respirations 18, blood pressure was 235/153 with a MAP of 181, oxygen saturation was 97% on room air. EKG performed in the ER did show sinus tachycardia with possible left atrial enlargement and a T-wave abnormality. In comparison with his EKG on 01/29/2019, there did not appear to be acute changes. It did have a rate of 107 with a QTc of 499. Laboratory results revealed leukocytosis with a white blood cell count of 14,100. He did have elevated creatinine of 1.5. Troponin was 0.015. ProBNP was 4129. D-dimer was slightly elevated at 0.6. His urine drug screen was positive for marijuana. A chest x-ray did appear to have some pulmonary edema. They did perform a CT angiogram of the pulmonary arteries secondary to his symptoms as well as elevated D-dimer. It did show left ventricular hypertrophy, mild mediastinal and hilar adenopathy, small bilateral pleural effusions, and a small amount of pericardial fluid. There was no focal consolidation. There was also suspect of some mild interstitial pulmonary edema. In the ER, they did give him several doses of antihypertensive medications which included a total of 0.4 mg of clonidine, a total of 40 mg of Apresoline, and 40 mg of Lasix. Since that time, the patient's blood pressure has improved with the last reading of 181/131. Given his elevated blood pressure and symptoms, we will go ahead and place him in the ICU for close monitoring, further treatment evaluation of congestive heart failure and hypertensive urgency. REVIEW OF SYSTEMS: A 14 point review of systems was conducted with the patient. All were negative except for pertinent positives mentioned above in the HPI. PAST MEDICAL HISTORY: 1. Severe hypertension. 2. Hypertensive cardiovascular disease with left ventricular hypertrophy and left ventricular diastolic dysfunction. 3. Hypertensive chronic kidney disease. 4. Obesity. 5. Previous cerebral bleed in May of 2018. 6. Morbid obesity. 7. Probable sleep apnea. 8. History of medical noncompliance. PAST SURGICAL HISTORY: The patient denies any previous surgeries. SOCIAL HISTORY: The patient states that he does smoke marijuana. He smokes approximately 2 cigarettes a day at this time, though he denied any other illicit drug use such as stimulants like cocaine, amphetamines, or methamphetamines. FAMILY HISTORY: Positive for his mother having a history of valvular heart disease and diabetes. His father secondary to an unknown medical complication. ALLERGIES: The patient has allergies to morphine and nitroglycerin. HOME MEDICATIONS: We are awaiting his home medication list to be updated and verified. Once done so, we will continue appropriate medications. We have placed an order in the computer and I have notified the nurse to obtain his list please. DIAGNOSTIC DATA/LABORATORY RESULTS: White blood cell count is 14,100, hemoglobin 14.3, hematocrit 43.6, platelet count is 238,000. PT 14.5, INR 1.12, PTT is 31.4. D-dimer is 0.6. Sodium 136, potassium 3.8, chloride 102, serum bicarb is 25, BUN 14, creatinine 1.5, glucose 91, calcium 8.3, magnesium 2. Liver function tests are within normal limits. Troponin 0.015. ProBNP is 4129. Urinalysis was obtained via clean catch. It was positive for protein, though was negative for glucose, ketones, blood, nitrites, leukocytes, white blood cells, or bacteria. Urine drug screen was positive for cannabinoids. Arterial blood gases were obtained on room air. It showed a pH of 7.44, pCO2 of 35, PO2 of 70, HC03 of 24.9, with a base excess of 0.2. Oxygen saturation is 96.6. EKG did show sinus tachycardia with possible left atrial enlargement and T-wave abnormality. When compared with an EKG from January of 2019, there did not appear to be any acute changes noted. The ventricular rate was 107, QTc was 499. Chest x-ray did show pulmonary edema, though we are awaiting official radiology over-read. CT angiogram of the pulmonary arteries did show left ventricular hypertrophy. There was mild mediastinal and hilar adenopathy which may be reactive but it is still technically indeterminate. There were small bilateral effusions. There was a small amount of pericardial fluid. There were no focal consolidations noted. There was mild nonspecific heterogeneous air-trapping in the lungs. There was mild interstitial pulmonary edema. The report was a limited study due to suboptimal opacification of the pulmonary arteries and mild motion artifact. There was no definite PE identified. There was no dissection of the thoracic aorta seen. PHYSICAL EXAMINATION: VITAL SIGNS: Temperature 98.4 degrees, heart rate 94, respirations 16, blood pressure was 181/131, oxygen saturation is 97% on room air. GENERAL: Mr. Sotomayor is a 33-year-old, obese, -[place] male who was resting on the ER stretcher. He was in no acute distress. He was awake, alert, and able to answer questions appropriately. HEENT: Head is atraumatic, normocephalic. Pupils are equal, round, reactive to light, were 3 mm bilaterally and brisk. Oral mucosa is moist. Oropharynx is clear. NECK: Supple. Trachea midline. There does appear to be some slight JVD noted upon examination. CARDIOVASCULAR: Patient has S1-S2 present. No murmurs, gallops, rubs appreciated. PULMONARY: Patient has symmetrical chest expansion bilaterally. Lung sounds were clear bilaterally in upper lung [place], though he did have some decreased lung sounds in the bilateral bases with crackles noted in the right lung base. ABDOMEN: Soft, nontender. Does not appear to be distended. The patient does have a protuberant abdomen noted. Bowel sounds are present in all 4 quadrants, were normoactive. EXTREMITIES: No cyanosis noted. The patient does have some trace edema noted to bilateral lower extremities from the mid calf down. Pulse, motor, and sensory are intact in all extremities. Radial and pedal pulses were 2+ bilaterally. INTEGUMENTARY: The patient's skin color is normal for his race. It is warm and dry. NEUROLOGICAL: The patient is alert and oriented to person, place, time, and situation. He is able move all extremities. There were no focal neurological deficits noted. ASSESSMENT AND PLAN: 1. Hypertensive urgency. The patient did receive antihypertensive medications of intravenous hydralazine and clonidine orally in the emergency room, as well as a dose of Lasix intravenously. Since that time, he has had good improvement in his blood pressure from 235/153 down to the last reading of 181/131. The patient reports that his blood pressure has been elevated for a little over a week. We would like to bring his blood pressure down slowly. We are awaiting his home medication list to be verified, though we will place orders for as needed antihypertensive medications. He has been placed in the intensive care unit for close monitoring. 2. Congestive heart failure exacerbation. The patient does take hydralazine and spironolactone, according to his verbal report. He states he has not missed any doses of this, though has been reporting worsening shortness of breath, worsening edema in his bilateral lower extremities, as well as orthopnea and paroxysmal nocturnal dyspnea. He did receive a dose of Lasix in the emergency room, intravenously. We will continue with 40 mg of Lasix intravenously every 12 hours. We will do strict intake and output, daily weights. We have placed a consult with cardiology and will await their evaluation and further recommendations for management. The patient's last echocardiogram was performed in September of 2018. It did have an estimated ejection fraction of 60%. 3. Chest pain. We will give the patient a full-dose aspirin. We will continue with the series of cardiac enzymes with a repeat electrocardiogram later on this morning. We will await cardiology's evaluation and recommendations. 4. Acute on chronic kidney disease. The patient's creatinine at this time is 1.5, though it was elevated at 1.5 during his last admission as well. We will avoid nephrotoxic medications. We will renally dose medicines as necessary. We will continue to follow. 5. Deep vein thrombosis prophylaxis. Given the patient's elevated D-dimer and bilateral lower extremity edema, we are awaiting venous Dopplers of bilateral lower extremities. We will hold off on any placement of sequential compression devices at this time. Also, the patient was reporting some rectal bleeding with bright red blood. We have ordered a Hemoccult stool. Until we get this result, we will hold off on any anticoagulants as well. We will await these results and continue to follow. 6. The patient has been placed in the intensive care unit for close monitoring. He will have vital signs per intensive care unit protocol. He will be on continuous cardiac telemetry and pulse oximetry. He will be on a heart healthy diet. We have ordered a repeat CBC, renal profile, magnesium, and a series of cardiac enzymes to be collected now. Further orders and recommendations pending hospital course, diagnostic studies, and physician evaluation. Dictated by JORDEN Matute for Carlyle Breen MD cc: Carlyle Breen MD
[2019-02-18] MEDS: ALDACTONE PO SCH (08:36)
[2019-02-18] MEDS: TRANDATE PO SCH ×2 (08:36→20:45)
[2019-02-18] MEDS: COZAAR PO SCH ×2 (08:37→20:45)
[2019-02-18] MEDS ORDERED: NORVASC PO SCH (09:00)
[2019-02-18] MEDS ORDERED: APRESOLINE IV PRN (09:00)
[2019-02-18 09:27] LABS: BASO# 0.03 X1000 (0.0-0.2); BASO% 0.2 % (0.0-0.8); EOS# 0.19 X1000 (0.0-0.7); EOS% 1.5 % (0.0-10.0); HEMATOCRIT 46.1 % (42.0-52.0); IMM GRAN# 0.02 X1000 (0.0-0.04); IMM GRAN% 0.2 % (0.0-0.5); LYMPH# 1.34 X1000 (1.2-3.4); LYMPH% 10.7 % (20.5-51.1); MCH 26.4 PG (27-31); MCHC 32.5 g/dL (33-37); MCV 81.2 FL (81-99); MONO# 0.61 X1000 (0.11-0.59); MONO% 4.9 % (1.7-9.3); MPV 11.1 FL (7.4-10.4); NEUT# 10.36 X1000 (1.4-6.5); NEUT% 82.5 % (42.2-75.2); PLT 240 X1000 (130-400); RBC 5.68 XMIL (4.7-6.1); RDW 14.9 % (11.5-14.5); WBC 12.55 X1000 (4.8-10.8)
[2019-02-18 10:02] LABS: AGAP 8; ALBUMIN 4.1 g/dL (3.5-5.0); BUN 13 mg/dL (8-22); CHLORIDE 99 mmol/L (98-107); COSMO 269; CREATININE 1.3 mg/dL (0.7-1.2); ESTIMATED GFR > 60; GLUCOSE 104 mg/dL (70-104); MAGNESIUM 2.2 mg/dL (1.5-2.7); PHOSPHORUS 2.9 mg/dL (2.7-4.5); POTASSIUM 3.9 mmol/L (3.5-5.1); SODIUM 134 mmol/L (136-145); TCO2 27 mmol/L (25-35)
[2019-02-18] MEDS ORDERED: LASIX IV SCH (13:30)
--- NOTE | 2019-02-18 15:01 | CARDIOLOGY CONSULTATION ---
DATE: 02/18/2019 HISTORY OF PRESENT ILLNESS: Mr. Sotomayor is a 33-year-old, -[place] gentleman with a history of severe hypertension, hypertensive cardiovascular disease, severe left ventricular hypertrophy, hypertensive kidney disease, history of hemorrhagic stroke in the past. Has had multiple admissions with accelerated hypertension. He comes here with approximately a week of worsening of his symptoms with shortness of breath and elevated blood pressures. He has been consistently having blood pressures between 200 and 240 systolic. He has had multiple admissions in the past and most of the instances when he is admitted here, his blood pressure is 230s to 200s systolic. Diastolic varies from 150 to 136. By the time he is discharged, his blood pressure is normal on the medications. He says he has been taking his medications regularly. He is also watching his salt in his diet. He denies chest pain suggestive of angina. Denies palpitations. There is no dizziness or syncope. In the past, he has had renal duplex studies which were negative. In addition, a CT scan of his abdomen revealed normal adrenal glands in 2016. REVIEW OF SYSTEMS: A 14-point review of systems was done. GI System: There is no history of nausea, vomiting, or diarrhea. There is no history of hematemesis or melena. Central Nervous System: No focal weakness to suggest a CVA or TIA. DIAGNOSTIC DATA: He had a chest x-ray done which revealed pulmonary edema. A CT angiogram was done with elevated D-dimers which revealed small effusions. No consolidation. No pulmonary embolism. PAST MEDICAL HISTORY: 1. Severe, uncontrolled accelerated hypertension. 2. Hypertensive heart disease. 3. Hypertensive kidney disease. 4. CVA with cerebral bleed in 2019. 5. Obesity. 6. Sleep apnea. 7. History of noncompliance. HOME MEDICATIONS: Include amlodipine 10 mg a day, clonidine 0.1 p.o. t.i.d., losartan 100 b.i.d., hydrochlorothiazide 12.5, spironolactone 25, labetalol 400 b.i.d. ALLERGIES: He is allergic to morphine and nitroglycerin. PHYSICAL EXAMINATION: Blood pressure when he came in was 235/153. Currently, blood pressure is 127/74. First and second heart sounds were heard. Respiratory System: Distant breath sounds. A Few scattered wheeze. There was no S3 gallop. Abdomen: Soft, nontender. There was no guarding or rigidity. Bowel sounds were heard. Central Nervous System: Alert, was moving all 4 extremities. Examination of the extremities revealed no pedal edema. LABORATORY DATA: Urine toxicology is positive for marijuana. Sodium 134, potassium 3.9, BUN 13, creatinine 1.3. Cardiac enzymes were negative. Hematocrit 46, WBC 12.5, hemoglobin 15.0, platelets 240,000. ASSESSMENT AND PLAN: Mr. Sadi Sotomayor is a 33-year-old, -[place] gentleman with a history of severe uncontrolled hypertension, hypertensive cardiovascular disease, with left ventricular hypertrophy, hypertensive renal disease, history of cerebrovascular accident in the past. He is admitted with shortness of breath and accelerated hypertension. He has had multiple admissions where he comes in with blood pressures 200 to 230 systolic, diastolic ranging from 130 to 160s. During his hospitalization, his blood pressure normalizes on multiple medications. He states that he has been taking his medications regularly. RECOMMENDATIONS: 1. He has a history of medical noncompliance. However, he states that he has been taking all his medicines as prescribed recently. We will see if we can change him out of [facility] and try him on verapamil 180 mg a day to see if this would help control his blood pressures better. 2. We will continue with all other home medications. 3. We will check his VMA and urine metanephrine levels as well. 4. As far as diuretics are concerned, he is on spironolactone and hydrochlorothiazide at home. Currently, given his heart failure, he is on Lasix 40 mg twice daily. Once he is euvolemic, we will change him back to spironolactone 25 mg a day and chlorthalidone 25 mg a day instead of the lower dose of hydrochlorothiazide. This is as per recommendations for hypertensive control. He is also on beta-blockers, MILKA inhibitors. I have not made any other changes. Thank you for the consult. cc: Nabor Lara MD
[2019-02-18] MEDS: CATAPRES PO SCH ×2 (15:28→20:45)
--- NOTE | 2019-02-18 15:32 | PROGRESS NOTE ---
DATE: 02/18/2019 SUBJECTIVE: Patient's respiratory symptoms are improving and O2 saturations remain good on room air. Blood pressure improving with restarting his home medications. I strongly suspect noncompliance as the cause of his markedly elevated blood pressure. Continue diuresis for likely minimal acute on chronic diastolic congestive heart failure. The patient is strongly counseled on compliance with medications and continued avoidance of illicit substances. Of he continues to improve can likely be discharged home tomorrow. We will move him to the floor.
[2019-02-19 06:32] LABS: CALCIUM 8.6 mg/dL (8.8-10.2); CREATININE 1.7 mg/dL (0.7-1.2); MAGNESIUM 2.2 mg/dL (1.5-2.7); POTASSIUM 3.4 mmol/L (3.5-5.1)
[2019-02-19] MEDS ORDERED: ISOPTIN PO SCH (09:00)
[2019-02-19] MEDS: COZAAR PO SCH ×2 (09:33→20:42)
[2019-02-19] MEDS: CATAPRES PO SCH (09:33)
[2019-02-19] MEDS: ALDACTONE PO SCH (09:33)
[2019-02-19] MEDS: CARDIZEM CD PO SCH (09:33)
[2019-02-19] MEDS: TRANDATE PO SCH ×2 (09:33→20:42)
[2019-02-19] MEDS: ASPIRIN PO SCH (09:33)
[2019-02-19] MEDS: HYGROTON PO SCH (09:33)
--- NOTE | 2019-02-19 09:56 | Diag Imaging Result Doc PS360 ---
EXAM: CHEST-PORTABLE 02/19/2019 HISTORY: dyspnea, chf TECHNIQUE: AP portable at 0943 COMMENT: There is cardiomegaly. No focal pulmonary opacity is present. The right costophrenic angle is not included on the image. The possibility of mild interstitial pulmonary edema cannot be excluded. Considering differences in technique there has been no appreciable change since 02/18/2019. IMPRESSION: Cardiomegaly and mild pulmonary edema. Electronically signed by Erik Jarrell 02/19/2019 9:54 AM
--- NOTE | 2019-02-19 14:56 | PROGRESS NOTE ---
DATE: 02/19/2019 INTERVAL HISTORY: Dyspnea largely resolved at this point. Blood pressure markedly improved with restarting his home medications aside from clonidine. The patient denies noncompliance but given numerous episodes of the patient coming in with markedly elevated blood pressure which normalizes with restarting the medications that he is supposed to be on, noncompliance seems the most likely explanation. No new complaints. No acute events overnight. REVIEW OF SYSTEMS: Twelve point review of systems negative except as per interval history. LABS: Sodium 138, potassium 3.4, bicarb 21, BUN 20, creatinine 1.7, glucose 118. VITALS: T-max 98.3 degrees, pulse 78, respirations 18, blood pressure 118/45, O2 saturation 98% on room air. PHYSICAL EXAMINATION: General: No acute distress. Vitals: As above. Obese. HEENT: Normocephalic, atraumatic. Moist mucous membranes. No cervical adenopathy. Cardiovascular: Regular rate and rhythm. No murmurs noted. Pulmonary: Essentially clear to auscultation at this point. Abdomen: Soft, nontender, nondistended. Bowel sounds positive. Extremities: Peripheral pulses intact. Trace lower extremity edema bilaterally. Neurologic: Cranial nerves grossly intact. No focal deficits. Psychiatric: Normal mood and affect. Awake, alert, and oriented x3. Skin: No new rashes or lesions are identified. ASSESSMENT AND PLAN: 1. Hypertension, likely related to noncompliance. Started patient back on his home medications aside from clonidine, with marked improvement. Further modifications to antihypertensives made by cardiology this morning. Blood pressure now extremely well-controlled. I strongly suspect medication noncompliance. 2. Mild acute on chronic diastolic congestive heart failure. Patient with mild dyspnea and slight edema on initial chest x-ray, essentially resolved with diuresis overnight. 3. Elevated creatinine. Patient with baseline creatinine of 1.2 to 1.4. A little up this morning after aggressive diuresis yesterday. Still on some chlorthalidone but off of Lasix. We will monitor kidney function at least one more day, especially in the setting of aggressive improvement in his blood pressure. 4. Morbid obesity. Patient counseled on diet and exercise. 5. History of cocaine and marijuana use. Urine drug screen negative for cocaine on this admission, still positive for THC. The patient counseled on cessation. 6. Disposition. If patient's kidney function improves or at least does not worsen, then can likely be discharged tomorrow. Cardiology evaluating patient for pheochromocytoma, but strongly suspect this evaluation will return negative.
--- NOTE | 2019-02-19 20:00 | Extremity Venous Study ---
PROCEDURE NAME: Venous U/S Bilateral Legs - 02/18/2019 STUDY: Bilateral lower extremity venous study. REQUESTING PROVIDER: JORDEN Matute. [employer] DEVELOPER: Erika Roldan RVT. INDICATION: 1. Edema of bilateral legs. 2. Elevated D-dimer. COMPARISON STUDY: From 03/17/2018. EQUIPMENT: [employer] Vivid E9 Ultrasound System with a 9L-D transducer. FINDINGS: Images of the bilateral lower extremity venous systems were obtained in both sagittal and transverse planes. Doppler was used to evaluate veins for spontaneity, phasicity, respiratory excursion, and digital augmentation. RESULTS: Normal venous compression. Normal venous flow. No obvious superficial or deep venous thrombosis noted. INTERPRETATION: Essentially normal bilateral lower extremity venous study. cc: Scott Abraham MD
[2019-02-20 05:59] LABS: BASO# 0.02 X1000 (0.0-0.2); BASO% 0.2 % (0.0-0.8); EOS# 0.34 X1000 (0.0-0.7); EOS% 3.3 % (0.0-10.0); HEMATOCRIT 43.7 % (42.0-52.0); HEMOGLOBIN 14.1 g/dL (14.0-18.0); IMM GRAN# 0.02 X1000 (0.0-0.04); IMM GRAN% 0.2 % (0.0-0.5); LYMPH# 1.91 X1000 (1.2-3.4); LYMPH% 18.5 % (20.5-51.1); MCH 26.8 PG (27-31); MCHC 32.3 g/dL (33-37); MCV 83.1 FL (81-99); MONO# 0.68 X1000 (0.11-0.59); MONO% 6.6 % (1.7-9.3); MPV 10.7 FL (7.4-10.4); NEUT# 7.34 X1000 (1.4-6.5); NEUT% 71.2 % (42.2-75.2); PLT 224 X1000 (130-400); RBC 5.26 XMIL (4.7-6.1); RDW 14.9 % (11.5-14.5); WBC 10.31 X1000 (4.8-10.8)
[2019-02-20 06:20] LABS: AGAP 14; BUN 17 mg/dL (8-22); CALCIUM 8.9 mg/dL (8.8-10.2); CHLORIDE 105 mmol/L (98-107); COSMO 283; CREATININE 1.4 mg/dL (0.7-1.2); ESTIMATED GFR > 60; GLUCOSE 99 mg/dL (70-104); POTASSIUM 3.9 mmol/L (3.5-5.1); SODIUM 141 mmol/L (136-145); TCO2 22 mmol/L (25-35)
[2019-02-20] MEDS: ALDACTONE PO SCH (08:21)
[2019-02-20] MEDS: TRANDATE PO SCH (08:21)
[2019-02-20] MEDS: CARDIZEM CD PO SCH (08:21)
[2019-02-20] MEDS: ASPIRIN PO SCH (08:21)
[2019-02-20] MEDS: COZAAR PO SCH (08:21)
[2019-02-20] MEDS: HYGROTON PO SCH (08:21)
[2019-02-20 11:45] VITALS: BP 151/87
--- NOTE | 2019-02-21 15:15 | DISCHARGE SUMMARY ---
ADMISSION DATE: 02/18/2019 DISCHARGE DATE: 02/20/2019 ADMITTING DIAGNOSES: 1. Hypertensive urgency. 2. Congestive heart failure exacerbation. 3. Chest pain. 4. Acute on chronic kidney disease. DISCHARGE DIAGNOSES: 1. Hypertension related to noncompliance. 2. Mild acute on chronic diastolic congestive heart failure. 3. Elevated creatinine. 4. Morbid obesity. 5. History of cocaine, marijuana use. CONSULTATIONS: Cardiology. They change him from Norvasc to verapamil to see if they can control his blood pressure's better. Otherwise, no other new orders. SURGERIES AND PROCEDURES: None. HOSPITAL COURSE: Mr. Jose Sotomayor is a 33-year-old male with a medical history of hypertension, LVH, diastolic dysfunction, CKD, and history of hemorrhagic stroke presented here with elevated blood pressure, shortness of breath and chest pain. He had elevated proBNP of 4129, a mild elevation in his D-dimer. He had some leukocytosis 14,000 in and was given IV hydralazine, oral clonidine, IV Lasix which improved his blood pressure. He was placed in ICU for closer observation on telemetry. He was started on heart healthy diet. Cardiology was consulted who changed his medication to control his blood pressure better. Vitals are stable. He is going to be discharged home. DISCHARGE VITAL SIGNS: Temperature 98.2 degrees, heart rate respiratory rate 16, blood pressure 151/87, O2 saturation 100% on room air. LAB DATA: White blood cells 10,000, hemoglobin 14, hematocrit 43, platelet count 224. Sodium 141, potassium 3.9, BUN 17, creatinine is 1.4, glucose 99, calcium 8.9. Urine drug screen positive cannabinoids. PERTINENT IMAGING: Chest x-ray: Pulmonary edema, cardiomegaly, pulmonary arteriogram, no PE, possibility of a VSD could not be excluded. Marked muscular hypertrophy of the left ventricle. Bilateral pleural effusions and mild pulmonary edema. Extremity venous ultrasound negative. Chest x-ray on the 7th, cardiomegaly, mild pulmonary edema. EKG normal sinus rhythm, rate 95, QTc was 512. DISCHARGE MEDICATIONS: 1. Aldactone 25 mg p.o. daily. 2. Aspirin 81 mg p.o. daily. 3. Diltiazem 240 mg p.o. daily. 4. Cozaar 100 mg p.o. twice daily. 5. Chlorthalidone 25 mg p.o. daily. 6. Labetalol 400 mg p.o. twice daily. DISCHARGE DIET: Heart healthy. DISCHARGE ACTIVITY: As tolerated. PHYSICIAN FOLLOWUP: Dr. Neto Caal and Dr. Scott Tucker. DISCHARGE INSTRUCTIONS: If your condition changes, contact physician and/or return to the emergency department. Changes may include, but are not limited to shortness of breath, increased fatigue, excessive bleeding, unexplained weight loss or gain, unmanageable pain, signs or symptoms of infection. Notify MD if you have harder time breathing than normal, new shortness of breath while resting, persistent cough, weight gain over 3 pounds in a day or 5 pounds in a week, swelling to the lower extremities, fever over 101, shortness of breath or chest pain. Keep all followup appointments. Keep record of your daily weights. Limit salt and fluid intake. Take all prescribed medications as directed. Return emergency department immediately for any new or worsening symptoms. Refer to the congestive heart failure booklet you were given for more detailed information. DISCHARGE DISPOSITION: Home. Dictated by JORDEN Macario for Kp Phelan MD cc: JORDEN Macario Patient with marked hypertension and minimal chf exacerbatin. diuresed successfully. lungs now CTAB and no LE edema at this point on exam. BP improved significantly with restarting his home meds. cardiology made a couple of adjustments and he was discharged in stable condition. CHRISTOPHE
== END 2019-02-20 16:35 | disposition home or self-care (01) | DRG 304 ==
LOC: ED 20:19 → ICU 02-18 05:38 → SUATTDRO 02-18 05:38 → ICU 02-18 06:26 → 2N 02-18 14:51
PROVIDERS: ATTEND Internal Medicine

== ENCOUNTER 2019-02-28 19:51 | Inpatient (IN) ==
--- NOTE | 2019-02-28 20:46 | Diag Imaging Result Doc PS360 ---
CHEST-2 VIEWS - 02/28/2019 INDICATION: sob COMPARISON: 02/19/2019 FINDINGS: There is cardiomegaly and pulmonary vascular congestion. There are faint interstitial infiltrates in the lung bases bilaterally. No significant pleural effusion. IMPRESSION: Cardiomegaly and pulmonary vascular congestion. Trace infiltrates in the lung bases likely represents early pulmonary edema. Electronically signed by Gianni Sherwood 02/28/2019 8:43 PM
[2019-02-28 21:06] LABS: INR 1.07; PROTIME 14.1 Seconds (11.0-16.0)
[2019-02-28 21:07] LABS: PTT 28.2 Seconds (22.3-41.8)
[2019-02-28 21:20] LABS: AGAP 15; ALB/GLOB RATIO 1.6; ALBUMIN 4.1 g/dL (3.5-5.0); ALKALINE PHOSPHATASE 90 U/L (32-122); BUN 17 mg/dL (8-22); CALCIUM 9.1 mg/dL (8.8-10.2); CHLORIDE 105 mmol/L (98-107); CK PROFILE 98 U/L (24-204); COSMO 282; CREATININE 1.3 mg/dL (0.7-1.2); ESTIMATED GFR > 60; GLUCOSE 90 mg/dL (70-104); GOT 17 U/L (10-34); GPT 15 U/L (10-44); POTASSIUM 4.1 mmol/L (3.5-5.1); SODIUM 141 mmol/L (136-145); TCO2 21 mmol/L (25-35); TOTAL BILIRUBIN 0.46 mg/dL (0.20-1.00); TOTAL PROTEIN 6.6 g/dL (6.3-8.3)
--- NOTE | 2019-02-28 21:22 | PROVIDER DOCUMENTATION ---
HPI-General Adult - General Chief Complaint: Shortness of Breath Stated Complaint: SOB Time Seen by Provider: 02/28/19 21:19 Source: patient Allergies/Adverse Reactions: Patient Allergies Allergy/AdvReac Type Severity Reaction Status Date / Time morphine Allergy HIVES Verified 11/25/18 16:08 nitroglycerin Allergy ANAPHYLAXIS Verified 11/25/18 16:08 Home Medications: Home Medication List Medication Instructions Recorded Confirmed Last Taken Type Labetalol [Trandate] 400 mg PO BID #180 tab 01/31/19 02/18/19 02/17/19 08:00 Rx Losartan [Cozaar] 100 mg PO BID #120 tab 01/31/19 02/18/19 02/17/19 08:00 Rx Spironolactone [Aldactone] 25 mg PO DAILY #120 tab 01/31/19 02/18/19 02/17/19 08:00 Rx Aspirin 81 mg PO DAILY chewtab 02/20/19 Unknown Rx Chlorthalidone [Hygroton] 25 mg PO DAILY #30 tab 02/20/19 Unknown Rx Diltiazem C.d. [Cardizem Cd] 240 mg PO DAILY #30 cap 02/20/19 Unknown Rx - History of Present Illness -Gen Adult Nature of Presenting Problems: 33yo male with PMH CHF and HTN presents with CC of shortness of breath. The onset was several days ago. The patient reports that he has been taking his medications. The patient reports that he did have a fever last night. The patient has been coughing at home and does report coughing up some blood. The patient reports that he has noted swelling and weight gain over the last few days as well as his cloths feeling tighter. The pateint denies cocaine use, but does report that he smokes marijuana. The patient had recent admission for CHFE and elevated blood pressure. Review of Systems - Adult - REVIEW OF SYSTEMS - ADULT Constitutional: reports: fever Eyes: reports: no symptoms reported. denies: eye pain Ears, Nose, Mouth & Throat: reports: no symptoms reported. denies: throat pain Cardiovascular: reports: edema. denies: chest pain Respiratory: reports: cough, hemoptysis, shortness of breath Gastrointestinal: reports: rectal bleeding. denies: abdominal pain Genitourinary: reports: no symptoms reported. denies: flank pain Musculoskeletal: reports: no symptoms reported. denies: back pain Integumentary: reports: no symptoms reported Neurological: reports: headache/migraines Psychiatric: reports: no symptoms reported Endocrine: reports: no symptoms reported Hematologic/Lymphatic: reports: no symptoms reported Allergic/Immunologic: reports: no symptoms reported Past History - Adult - PAST MEDICAL HISTORY-ADULT Review of Records: reports: Old Records Reviewed Major Childhood Illnesses: reports: denies history Cardiovascular: reports: CHF, HTN, other (cardiomegaly) Respiratory: reports: denies history Gastrointestinal: reports: denies history Obstetrical/Gynecological: reports: denies history Genitourinary: reports: denies history Musculoskeletal: reports: denies history Neurological: reports: CVA Psychiatric: reports: denies history Endocrine/Immune: reports: denies history Other Conditions: reports: denies history - PRIOR SURGERIES/PROCEDURES Surgical/Procedure History: reports: none - IMMUNIZATION STATUS Childhood Immunizations: See Nurse Assessment Flu Vaccine: See Nurse Assessment - FAMILY HISTORY Family History: reviewed, not pertinent, CVA/TIA, HTN - SOCIAL HISTORY Substance Use: marijuana Physical Exam-General - PHYSICAL EXAM-ADULT Initial Vital Signs Reviewed: Yes - CONSTITUTIONAL General Appearance: appears well, alert, no apparent distress - EYES Eyes: negative: conjuctival exudate, photophobia, scleral icterus - HEAD, EARS, NOSE, MOUTH & THROAT HENMT: normocephalic/atraumatic, moist mucous membranes - RESPIRATORY Respiratory: no respiratory distress, decreased breath sounds - CARDIOVASCULAR Cardiovascular: regular rate, rhythm, no edema, JVD - GASTROINTESTINAL (ABDOMEN) Abdominal Exam: non tender, soft, distended - MUSCULOSKELETAL Extremity: non-tender (LE) - SKIN Integumentary: normal color, warm/dry - NEUROLOGIC Neurologic: grossly normal - PSYCHIATRIC Psych/Mental Status: normal mood/affect, normal thought content, normal thought process Progress - PLAN OF CARE/RESULTS Progress/Plan/Lab Results: Vital Signs - 8 hr 02/28/19 19:54 Temperature 98.9 F Pulse Rate 108 H Respiratory Rate 19 Blood Pressure 191/113 O2 Sat by Pulse Oximetry 95 Laboratory Results - last 24 hr 02/28/19 02/28/19 02/28/19 20:26 20:26 20:26 PT 14.1 INR 1.07 PTT (Actin FS) 28.2 Sodium 141 Potassium 4.1 Chloride 105 Carbon Dioxide 21 L Anion Gap 15 BUN 17 Creatinine 1.3 H Estimated GFR/1.73 m2 > 60 BUN/Creatinine Ratio 13 Glucose 90 Calculated Osmolality 282 Calcium 9.1 Total Bilirubin 0.46 AST 17 ALT 15 Alkaline Phosphatase 90 Creatine Kinase 98 Troponin T 0.028 Total Protein 6.6 Albumin 4.1 Globulin 2.5 Albumin/Globulin Ratio 1.6 Orders Category Date Time Status Cardiac Monitoring DIRECTED Care 02/28/19 20:14 Active Oxygen Therapy- ED Nursing DIRECTED Care 02/28/19 20:14 Active Saline Loc NOW Care 02/28/19 20:14 Active CHEST-2 VIEWS [RAD] Stat Exams 02/28/19 20:14 Completed CBC WITH ELECTRONIC DIFF [HEME] Stat Lab 02/28/19 20:26 Results CK PROFILE [SP CHEM] Stat Lab 02/28/19 20:26 Completed COMPREHENSIVE METABOLIC PANEL [CHEM] Stat Lab 02/28/19 20:26 Completed PRO B-NATRIURETIC PEPTIDE Stat Lab 02/28/19 20:26 Received PROTIME WITH INR [COAG] Stat Lab 02/28/19 20:26 Completed PTT [COAG] Stat Lab 02/28/19 20:26 Completed TROPONIN T Stat Lab 02/28/19 20:26 Completed URINE DRUG SCREEN Stat Lab 02/28/19 21:20 Uncollected CP/SOB/Palp >45 yrs of Age Stat Oth 02/28/19 20:14 Ordered EKG [EKG] Stat Ther 02/28/19 20:14 Ordered Result Diagrams: 02/28/19 20:26 02/28/19 20:26 - REASSESSMENT Reassessment #1 Status: improving (BP has improved with hydralizine, lasix, and labetelol, however remains elevated. Unfortunately the patient was not honest about his drug use, and his UDS showed positive for cocaine. Discussed case with the hospitalist to plan for admission for hypertensive urgency and CHFE. The hospitalist has accepted the patient.) Departure - Departure Date of Disposition Decision: 03/01/19 Time of Disposition Decision: 00:10 DIAGNOSIS: Hypertensive urgency, Cocaine abuse CHF exacerbation Qualifiers: Heart failure type: unspecified Qualified Code(s): I50.9 - Heart failure, unspecified Disposition: ADMITTED INPATIENT 09 Certified Medical Emergency: Emergent Condition: Fair Referrals and Follow-Ups: None,PCP [Primary Care Provider] - - Critical Care Note This patient required my direct & personal management of CC.: No Attestation - Physician/ NAYE Attestation Patient care was provided by Advanced Practice Provider:: No The physician spent face to face time with patient:: Yes Advanced Practice Provider documentation review:: Supervising physician onsite and consulted in the evaluation and care of this patient. The physician did have a face to face encounter with the patient.
[2019-02-28] MEDS ORDERED: LASIX IV ONE ×2 (21:37→23:30)
[2019-02-28 21:38] LABS: BASO# 0.07 X1000 (0.0-0.2); BASO% 0.5 % (0.0-0.8); EOS# 0.53 X1000 (0.0-0.7); EOS% 3.7 % (0.0-10.0); HEMOGLOBIN 14.9 g/dL (14.0-18.0); IMM GRAN# 0.08 X1000 (0.0-0.04); IMM GRAN% 0.6 % (0.0-0.5); LYMPH# 3.09 X1000 (1.2-3.4); LYMPH% 21.7 % (20.5-51.1); MCH 26.4 PG (27-31); MCHC 32.4 g/dL (33-37); MCV 81.6 FL (81-99); MONO# 0.82 X1000 (0.11-0.59); MONO% 5.7 % (1.7-9.3); NEUT# 9.68 X1000 (1.4-6.5); NEUT% 67.8 % (42.2-75.2); PLT 256 X1000 (130-400); RBC 5.64 XMIL (4.7-6.1); RDW 14.3 % (11.5-14.5); WBC 14.27 X1000 (4.8-10.8)
--- NOTE | 2019-02-28 21:42 | EKG Report ---
Test Performed on : 02/28/2019 8:03:11 PM Test Reason : sob Blood Pressure : / mmHG Vent. Rate : 107 BPM Atrial Rate : 107 BPM P-R Int : 158 ms QRS Dur : 090 ms QT Int : 356 ms P-R-T Axes : 061 024 162 degrees QTc Int : 475 ms Sinus tachycardia. Possible Left atrial enlargement ST & T wave abnormality, consider lateral ischemia Abnormal ECG When compared with ECG of 18-FEB-2019 07:52, No significant change was found Unconfirmed Result
[2019-02-28] MEDS ORDERED: APRESOLINE IV ONE ×2 (21:45→22:42)
[2019-02-28 21:52] LABS: BANDS 1 % (0-1); EOS 4 % (1-10); LARGE PLATELETS OCCASIONAL; MONO 1 % (1-9); SEGS 63 % (42-75)
[2019-02-28 21:59] LABS: LYMPHS 15 % (21-51)
[2019-02-28] MEDS ORDERED: LABETALOL IV ONE (22:44)
[2019-02-28 23:16] LABS: UR AMPHETAMINES QUAL NONE DETECTED (NONE DETECT); UR BARBITUATES QUAL NONE DETECTED (NONE DETECT); UR BENZODIAZEPIN QUAL NONE DETECTED (NONE DETECT); UR CANNABINOIDS QUAL PRESUMPTIVE POSITIVE (NONE DETECT); UR COCAINE QUAL PRESUMPTIVE POSITIVE (NONE DETECT); UR METHADONE QUAL NONE DETECTED (NONE DETECT); UR OPIATES QUAL NONE DETECTED (NONE DETECT); UR OXYCODONE QUAL NONE DETECTED (NONE DETECT); UR PCP QUAL NONE DETECTED (NONE DETECT)
[2019-03-01] MEDS: CARDENE 20 MG/NS 20 MG/200 ML PIGGYBACK IV SCH ×4 (00:43→20:45)
--- NOTE | 2019-03-01 01:45 | HISTORY AND PHYSICAL ---
CHIEF COMPLAINT: Shortness of breath for about 2 days. HISTORY OF PRESENT ILLNESS: Mr. Sadi Sotomayor is an 83-year-old male who has a history of hypertension, diastolic dysfunction, substance abuse, obesity. He presented to the hospital because of shortness of breath which has been ongoing for about 2 days and has been progressive. He also describes having chest pain along with leg swelling. At the time of presentation, the patient's blood pressure was as high as 233/156. His chest x-ray did show evidence of cardiomegaly with pulmonary vascular congestion. The patient indicates he has been compliant with his medication. Urine drug screen was positive for cocaine as well as cannabinoids. The patient will now be transferred to the intensive care unit for further management. PAST MEDICAL HISTORY: 1. Hypertension. 2. Chronic kidney disease. 3. Diastolic dysfunction. 4. Medical no complaints. 5. History of hemorrhagic CVA. 6. Hypertensive heart disease. 7. Morbid obesity. PAST SURGICAL HISTORY: Unremarkable. SOCIAL HISTORY: The patient has a history of cigarette smoking as well as a substance abuse. Urine drug screen positive for marijuana as well as cocaine. FAMILY HISTORY: Positive for heart disease as well as diabetes. ALLERGIES: Allergic to morphine as well as nitroglycerin. MEDICATIONS: Include the followin. Labetalol 400 mg p.o. twice a day. 2. Losartan 100 mg p.o. twice a day. 3. Spironolactone 25 p.o. once a day. 4. Aspirin 81 mg p.o. daily. 5. Chlorthalidone 25 mg once a day. 6. Diltiazem 240 mg p.o. once a day. REVIEW OF SYSTEMS: Constitutional: Positive for fever. Central nervous system: Positive for headaches. ENT: Sinus disease. Eyes: No blurred vision. Cardiovascular: Chest pain. Gastrointestinal: No nausea, vomiting, diarrhea, constipation. No abdominal pain. genitourinary: No dysuria. Musculoskeletal: No joint pains. Dermatology: No skin lesions. Hematology: No bleeding problems. Psychiatric: No anxiety or depression. Allergy/immunology: No symptoms suggestive of allergic rhinitis. Endocrinology: No diabetes or thyroid disease. EXAMINATION: Vital Signs Are As Follows: Pulse is 102, respiratory rate 16, blood pressure is 162/86mmhg. oxygen saturation is 98%, temperature 98.9 degrees. HEENT: Atraumatic, normocephalic. Eyes: Anicteric. Pupils are equal, poorly reactive to light. No oral lesions noted. Neck: No lymphadenopathy or thyromegaly. Cardiovascular: S1, S2. Respiratory system: Evidence of good air entry bilaterally. Abdomen: Soft, nontender, obese. No masses felt. Extremities: Trace edema in both lower extremities. Central nervous system: No obvious focal deficit noted. LABORATORY DATA: WBC is 14.7, hematocrit is 46, with a platelet count of 256,000. INR is 1.07. Sodium is 141, potassium 4.1, chloride is 105, bicarb 21, BUN is 17, creatinine is 1.3. His proBNP is 6028. Urine drug screen positive for cannabinoids as well as cocaine. His EKG shows evidence of sinus tachycardia with possible left atrial enlargement and some ST-T wave abnormalities. X-ray chest shows cardiomegaly with pulmonary vascular congestion. ASSESSMENT AND PLAN: 1. Hypertensive urgency. We will start the patient on parenteral agents, specifically nicardipine. The patient to be managed in the intensive care unit. We will also resume his oral antihypertensive medications accordingly. 2. Acute diastolic heart failure. We will monitor the patient's in's and out's as well as daily weights. Use diuretics as needed. 3. Chronic kidney disease. Judicious use of diuretics. Follow up on renal function. Avoid nephrotoxic agents. 4. Substance abuse, specifically cannabinoids as well as cocaine. The patient advised to abstain from these substances. 5. Leukocytosis. Check blood cultures. Follow up on white count. 6. Obesity. Recommend diet as well as exercise regimen post discharge from the hospital. 7. Deep vein thrombosis prophylaxis. Sequential compression devices. 8. Gastrointestinal prophylaxis. Proton pump inhibitor. cc: Devonte Uribe MD [facility]
[2019-03-01] MEDS ORDERED: ZOFRAN IV PRN (02:48)
[2019-03-01 03:07] LABS: AGAP 20; BUN 15 mg/dL (8-22); CALCIUM 9.4 mg/dL (8.8-10.2); CHLORIDE 101 mmol/L (98-107); COSMO 284; CREATININE 1.4 mg/dL (0.7-1.2); ESTIMATED GFR > 60; GLUCOSE 104 mg/dL (70-104); MAGNESIUM 2.1 mg/dL (1.5-2.7); POTASSIUM 3.6 mmol/L (3.5-5.1); SODIUM 142 mmol/L (136-145); TCO2 21 mmol/L (25-35)
[2019-03-01] MEDS: PROTONIX PO SCH (08:51)
[2019-03-01] MEDS: ASPIRIN PO SCH (11:50)
[2019-03-01] MEDS: COZAAR PO SCH ×2 (11:51→20:23)
[2019-03-01] MEDS: CARDIZEM CD PO SCH (11:51)
--- NOTE | 2019-03-01 14:57 | PROGRESS NOTE ---
DATE: 03/01/2019 SUBJECTIVE: Mr. Sotomayor is a 33-year-old male who has a history of hypertension, diastolic dysfunction, substance abuse, obesity, presented to the hospital because of shortness of breath that has been ongoing for about 2 days, has been progressive. He also described having chest pain along with leg swelling. At the time presentation, patient's blood pressure was 233/156. Chest x- ray did show evidence of cardiomegaly and pulmonary vascular congestion. The patient indicates he has been compliant with his medication. Urine drug screen was positive for cocaine as well as cannabinoids. Patient transferred to intensive care for further management. PAST MEDICAL HISTORY: 1. Hypertension. 2. Chronic kidney disease. 3. Diastolic dysfunction. 4. Medical noncompliance. 5. History of hemorrhagic CVA. 6. Hypertension, hypertensive heart disease. 7. Morbid obesity. SURGICAL HISTORY: Really unremarkable. ALLERGIES: Morphine as well as nitroglycerin. Not sure what those allergies were. MEDICATIONS: He was on labetalol 400 mg twice a day, losartan 100 mg twice a day, spironolactone 25 mg a day, chlorthalidone 25 mg a day, and diltiazem 240 mg a day. OBJECTIVE: General: He is sleeping, resting comfortably. He is easy to arouse. He ate a pretty good breakfast. Vital signs: Blood pressures have come down. Last several numbers, 191/113, 157/87, 161/92. HEENT: Pupils are equal. Neck: No distended neck veins. Lungs: Clear in all lung [place]. Cardiovascular: Regular rhythm and rate without murmur or S3. I do not appreciate carotid or femoral bruits. LABORATORY DATA: Reviewed. White count was 14,270, hematocrit 46, platelet count 256,000. Sodium 142, potassium 3.6, chloride 101, BUN 15, creatinine 1.4. Urine drug screen presumptive positive for cocaine and cannabinoids. His chest x-ray, cardiomegaly and pulmonary vascular congestion. Trace infiltrates in the lung base, likely suggestive of pulmonary edema. ASSESSMENT AND PLAN: 1. Hypertensive urgency. The patient on parenteral agents using nicardipine. Continue his usual blood pressure medicine. 2. Acute diastolic heart failure. We will try and get his blood pressure down and watch his I's and O's carefully. 3. Chronic kidney disease. Judicious use of diuretics and follow his renal function. 4. Substance abuse, specifically cannabinoids and cocaine. He has been counseled and advised to stay off of these substances. 5. Leukocytosis. Appears to be just demargination. I do not see evidence of infection. 6. Obesity. Encouraged him to pursue weight reduction. 7. Continue deep venous thrombosis prophylaxis with sequential compression devices. 8. He is on gastrointestinal prophylaxis as well. Review of his lab, I do not see any changes at this point. He is on nicardipine drip and they are titrating. He started off at 2.5 mg every 10 minutes and maximum dose will be 15 mg/hour. cc: Kiran Pérez MD
[2019-03-02] MEDS: CARDENE 20 MG/NS 20 MG/200 ML PIGGYBACK IV SCH (00:49)
[2019-03-02] MEDS: PROTONIX PO SCH ×2 (05:48→06:08)
--- NOTE | 2019-03-02 08:18 | EKG Report ---
Test Performed on : 03/01/2019 07:40:26 AM Test Reason : ED. NO EKG ORDER FOR MUSE Blood Pressure : / mmHG Vent. Rate : 099 BPM Atrial Rate : 099 BPM P-R Int : 160 ms QRS Dur : 092 ms QT Int : 366 ms P-R-T Axes : 066 029 133 degrees QTc Int : 469 ms Normal sinus rhythm. Biatrial enlargement T wave abnormality, consider lateral ischemia Prolonged QT Abnormal ECG When compared with ECG of 28-FEB-2019 20:03, (Unconfirmed) No significant change was found Unconfirmed Result
[2019-03-02] MEDS: ASPIRIN PO SCH (09:34)
[2019-03-02] MEDS: COZAAR PO SCH ×2 (09:34→20:03)
[2019-03-02] MEDS: CARDIZEM CD PO SCH (09:34)
--- NOTE | 2019-03-02 12:35 | PROGRESS NOTE ---
DATE: 03/02/2019 SUBJECTIVE: He is feeling better. I think we can move him to the floor, but he is still on his IV drip for hypertension. OBJECTIVE: Vital Signs: He remains afebrile. Temperature 97.9 degrees, pulse 96, respirations 17, blood pressure 155/106. HEENT: Pupils are equal and round. Lungs: Clear in all lung [place]. Cardiovascular: Regular rhythm and rate without murmur or S3. Abdomen: Soft. Skin: Warm and dry. ASSESSMENT AND PLAN: 1. Hypertensive urgency. Still on nicardipine drip, so will see if we can switch him over to oral medicines, get him off the drip, move him to the floor. 2. Acute diastolic heart failure exacerbated by increased afterload. He is breathing better, diuresing pretty good. 3. Chronic kidney disease. We will use diuretics very judiciously. 4. Substance abuse. He was positive for cannabinoids and cocaine. 5. Leukocytosis. 6. Obesity. 7. Continue deep venous thrombosis prophylaxis and gastrointestinal prophylaxis. He is not allergic to anything, and we will start him on Norvasc 5 mg twice a day, and he is on Cardizem CD 240 mg a day already. Will see if we can get him off the nicardipine drip and move him to the floor. cc: Kiran Pérez MD
[2019-03-02] MEDS: NORVASC PO SCH ×2 (13:26→20:03)
[2019-03-02] MEDS: HYDROCHLOROTHIAZIDE PO SCH (13:26)
[2019-03-03] MEDS ORDERED: LABETALOL IV ONE ×2 (03:26)
[2019-03-03] MEDS: PROTONIX PO SCH (06:05)
[2019-03-03] MEDS: HYDROCHLOROTHIAZIDE PO SCH (08:35)
[2019-03-03] MEDS: CARDIZEM CD PO SCH (08:36)
[2019-03-03] MEDS: NORVASC PO SCH ×2 (08:36→20:00)
[2019-03-03] MEDS: COZAAR PO SCH (08:36)
[2019-03-03] MEDS: ASPIRIN PO SCH (08:36)
[2019-03-03] MEDS: PRINIVIL PO SCH ×2 (10:18→20:00)
--- NOTE | 2019-03-03 13:45 | PROGRESS NOTE ---
DATE: 03/03/2019 SUBJECTIVE: Blood pressure is still running high, so I have increased the Norvasc. He is off the nicardipine drip and I have put him on lisinopril 20 mg twice a day as well as hydrochlorothiazide 25 mg q.a.m. ASSESSMENT AND PLAN: 1. Hypertensive urgency. Have been able to get off nicardipine drip. Have put him on Norvasc and lisinopril as well as hydrochlorothiazide. 2. Acute diastolic heart failure with increased afterload. Seems to be doing better. 3. Chronic kidney disease. Renal function appears stable. 4. Substance abuse. Positive for cannabinoids and cocaine. 5. Leukocytosis which I think is just demargination, probably secondary to stress and cannabinoids and cocaine. 6. Obesity. LABORATORY DATA: Last last lab was on the . Electrolytes from the unremarkable, creatinine 1.4. I am going to recheck a Chem 12, a magnesium and CBC in the morning. Also check T4, TSH, B12 and folate. cc: Kiran Pérez MD
--- NOTE | 2019-03-03 13:59 | Diag Imaging Result Doc PS360 ---
EXAM: CHEST-2 VIEWS 03/03/2019 HISTORY: pulmonary venous htn TECHNIQUE: PA and lateral chest COMMENT: There is no evidence of acute cardiac or pulmonary disease. Compared to 02/28/2019 there has been no significant change in the appearance of the chest. IMPRESSION: No evidence of acute disease. Electronically signed by Erik Jarrell 03/03/2019 1:57 PM
[2019-03-04] MEDS ORDERED: APRESOLINE IV ONE (00:13)
[2019-03-04] MEDS: PROTONIX PO SCH (06:20)
[2019-03-04 07:04] LABS: AGAP 16; ALB/GLOB RATIO 1.1; ALBUMIN 3.6 g/dL (3.5-5.0); ALKALINE PHOSPHATASE 85 U/L (32-122); BUN 20 mg/dL (8-22); CALCIUM 9.3 mg/dL (8.8-10.2); CHLORIDE 103 mmol/L (98-107); COSMO 281; CREATININE 1.3 mg/dL (0.7-1.2); ESTIMATED GFR > 60; GLUCOSE 112 mg/dL (70-104); GOT 10 U/L (10-34); GPT 12 U/L (10-44); MAGNESIUM 2.1 mg/dL (1.5-2.7); POTASSIUM 3.8 mmol/L (3.5-5.1); SODIUM 139 mmol/L (136-145); TCO2 20 mmol/L (25-35); TOTAL BILIRUBIN 0.53 mg/dL (0.20-1.00); TOTAL PROTEIN 6.9 g/dL (6.3-8.3)
[2019-03-04 07:13] LABS: FREE T4 1.45 ng/dL (0.93-1.70); TSH 2.67 uIUmL (0.27-4.20)
[2019-03-04] MEDS: CARDIZEM CD PO SCH (09:00)
[2019-03-04] MEDS: HYDROCHLOROTHIAZIDE PO SCH (09:01)
[2019-03-04] MEDS: NORVASC PO SCH ×2 (09:01→23:16)
[2019-03-04] MEDS: PRINIVIL PO SCH ×2 (09:01→23:15)
[2019-03-04] MEDS: ASPIRIN PO SCH (09:01)
--- NOTE | 2019-03-04 10:05 | PROGRESS NOTE ---
DATE: 03/04/2019 SUBJECTIVE: He is feeling better. Blood pressures are coming down nicely. Breathing is comfortable. Remains afebrile. OBJECTIVE: Temperature 97.9 degrees, pulse 74, respirations 18, blood pressure 155/96. Pupils are equal and round. Lungs are clear in all lung [place]. Cardiovascular Examination: Regular rhythm and rate without murmur or S3. Abdomen is soft. Skin is warm and dry. Urine output was good at 1300 mL. ASSESSMENT AND PLAN: 1. Hypertensive urgency. Blood pressure is coming down nicely. Hopefully, he can go home this afternoon. 2. Acute diastolic heart failure with pulmonary venous hypertension, improved after we improved his afterload. 3. Chronic kidney disease. Renal function stable. 4. History of substance abuse, cannabinoids and cocaine. 5. Leukocytosis, which I suspect was demargination. 6. Obesity. Encourage some weight reduction. cc: Kiran Pérez MD
--- NOTE | 2019-03-04 19:02 | DISCHARGE SUMMARY ---
ADMISSION DATE: 03/01/2019 DISCHARGE DATE: 03/04/2019 HISTORY OF PRESENT ILLNESS: Presented with shortness of breath for 2 days. No primary care physician. This is a 33-year-old, black male, with a history of hypertension, diastolic dysfunction, substance abuse, obesity, who presented to the hospital with shortness of breath that had been going on for about 2 days, has been progressive. Described as having some chest discomfort and leg swelling. At the time of presentation, patient's blood pressure was 233/156. Chest x-ray showed evidence of cardiomegaly, pulmonary vascular congestion. Patient indicates that he has been compliant with his medication. Urine drug screen was positive for cocaine and cannabinoids. PAST MEDICAL HISTORY: Reviewed again. 1. Hypertension. 2. Chronic kidney disease. 3. Diastolic dysfunction. 4. History of medical poor compliance. 5. History of hemorrhagic CVA. 6. Hypertensive heart disease. 7. Morbid obesity. PAST SURGICAL HISTORY: History unremarkable. ADMISSION DIAGNOSES: 1. Hypertensive urgency. The patient was put on nicardipine drip and started on p.o. medicines, eventually able to titrate him to p.o. medicines when blood pressures improved. 2. Acute diastolic heart failure. He had some judicious diuretics and his breathing improved. 3. Chronic kidney disease, which remained fairly stable. Try to avoid nephrotoxic medications. 4. Substance abuse. He was positive on urine drug screen for cannabinoids and cocaine. Advised against using both of these substances. 5. Leukocytosis. Suspect demargination. No sign of infection. 6. Obesity. Encourage weight reduction. HOSPITAL COURSE: While he was here, he got deep venous thrombosis and was on a GI regimen for proton pump inhibitor. Blood pressures came down nicely and felt he could go home with Norvasc 10 mg twice a day, aspirin 81 mg a day, Cardizem CD 240 mg a day, hydrochlorothiazide 25 mg a day, Prinivil 20 mg b.i.d. I want him to find a primary care physician and get some followup. It is important he gets followup in the next 4 weeks and control his blood pressures. cc: Kiran Pérez MD
[2019-03-05] MEDS: PROTONIX PO SCH (06:41)
[2019-03-05 07:32] VITALS: BP 148/101
[2019-03-05] MEDS: NORVASC PO SCH (09:03)
[2019-03-05] MEDS: PRINIVIL PO SCH (09:03)
[2019-03-05] MEDS: CARDIZEM CD PO SCH (09:03)
[2019-03-05] MEDS: ASPIRIN PO SCH (09:03)
[2019-03-05] MEDS: HYDROCHLOROTHIAZIDE PO SCH (09:03)
--- NOTE | 2019-03-05 09:37 | DISCHARGE SUMMARY ---
ADMISSION DATE: 03/01/2019 DISCHARGE DATE: ADDENDUM: He is ready to go home. Blood pressures have come down nicely. He still has a little bit of diastolic hypertension but we will discharge him home. See list of his medications. Encouraged him to follow up with primary care, find a primary care physician, and he will follow up with cardiology. cc: Kiran Pérez MD
== END 2019-03-05 13:50 | disposition home or self-care (01) | DRG 304 ==
LOC: ED 19:51 → EDIPHOLD 03-01 00:18 → SUATTDRO 03-01 00:18 → ICU 03-01 15:20 → 4N 03-03 17:17
PROVIDERS: ATTEND Emergency Medicine